=== PATIENT | male | born 1955 | race Caucasian/White ===

== ENCOUNTER 2021-09-23 11:34 | Emergency (ER) | payer OTHER ==
--- OUTSIDE RECORDS SUMMARY | 2021-09-23 11:36 | XMS REPORT | Continuity of Care Document ---
:1955 Author Organization [facility] t Address Formerly [facility] [place] [address] Care Team Providers Name Role Phone Unavailable Unavailable Unavailable Problems This patient has no known problems. Allergies, Adverse Reactions, Alerts This patient has no known allergies or adverse reactions. Medications This patient has no known medications. Procedures This patient has no known procedures. Encounters Start End Encounter Admission Attending Care Care Encounter Source Date/Time Date/Time Type Type Clinicians Facility Department ID 2020-08-28 2020-08-28 Outpatient [id number] MH 05:43:00 05:43:00 Delio kennedy [facility] Results This patient has no known results.
[2021-09-23] MEDS ORDERED: ONDANSETRON 4 MG/2 ML VIAL ONE (11:58)
[2021-09-23] MEDS ORDERED: TICAGRELOR 90 MG TABLET PO ONE (11:58)
[2021-09-23] MEDS ORDERED: MORPHINE 4 MG/ML SYR ONE (11:58)
[2021-09-23] MEDS ORDERED: ASPIRIN 81 MG CHEWABLE TABLET ONE (11:58)
[2021-09-23] MEDS ORDERED: HEPARIN/D5W 25,000 UNIT/500 ML BAG IV ONE (11:59)
[2021-09-23 12:11] LABS: Protime INR 1.01
[2021-09-23 12:21] LABS: Absolute Lymphocytes (CBC) 1.4 K/uL (0.7-4.9); Basophils % 0.1 % (0-1.3); Hematocrit 49.1 % (39.6-49.0); Lymphocytes % 6.8 % (15.3-44.8); MPV 9.2 fL (7.6-11.3); RBC Red Blood Cell Count 5.79 M/uL (4.33-5.43)
--- NOTE | 2021-09-23 12:34 | EDPHYS ---
Physician Documentation [facility] Name: Luis Meza Age: 66 yrs Sex: Male : 1955 Arrival Date: 09/23/2021 Time: 11:36 Bed 7 Private MD: ED Physician Paramjit Foster HPI: 09/23 11:56 This 66 yrs old Male presents to ER via Ambulatory with complaints of Chest rn Pain, High Blood Pressure. 11:56 The patient or guardian reports chest pain that is located primarily in the substernal rn area. Onset: 2 hour(s) ago. The pain radiates to both shoulders. Associated signs and symptoms: Pertinent positives: diaphoresis, Pertinent negatives: abdominal pain, cough, shortness of breath, syncope, vomiting. The chest pain is described as a heaviness, a pressure. Duration: The patient or guardian reports a single episode, that is still ongoing. Modifying factors: The symptoms are alleviated by nothing. the symptoms are aggravated by nothing. Severity of pain: At its worst the pain was moderate in the emergency department the pain is unchanged. The patient has experienced similar episodes in the past. The patient has not recently seen a physician. Patient reports intermittent chest pain for the last 2 days, took aspirin last night. Woke up this morning and was beginning to experience substernal chest pain, radiates to both shoulders, associated with diaphoresis and nausea. Pain is not getting better or worse and is constant pressure. No known history of LA. Patient does not have a primary care doctor or get regular checkups. Non-smoker. Strong family history of LA at a young age younger than he is currently. No trauma. Does not feel ill.. Historical: - Allergies: 11:52 No Known Allergies; ss - Home Meds: 11:52 None [Active]; ss - PMHx: 11:52 None; ss - PSHx: 11:52 "prostate surgery"; ss - Immunization history:: Client reports receiving the 2nd dose of the Covid vaccine. - Social history:: Smoking status: Patient denies any tobacco usage or history of. - Family history:: not pertinent. - Hospitalizations: : No recent hospitalization is reported. ROS: 11:56 Constitutional: Negative for fever, chills, and weight loss, Eyes: Negative for injury, rn pain, redness, and discharge, Neck: Negative for injury, pain, and swelling, Cardiovascular: Negative for palpitations, and edema, Respiratory: Negative for shortness of breath, cough, wheezing, and pleuritic chest pain, Abdomen/GI: Negative for abdominal pain, vomiting, diarrhea, and constipation, Back: Negative for injury and pain, MS/Extremity: Negative for injury and deformity, Skin: Negative for injury, rash, and discoloration, Neuro: Negative for headache, weakness, numbness, tingling, and seizure. 11:56 All other systems are negative. rn Exam: 11:56 Constitutional: This is a well developed, well nourished patient who is awake, alert, rn appears anxious Head/Face: Normocephalic, atraumatic. Eyes: Periorbital areas with no swelling, redness, or edema. Cardiovascular: Regular rate and rhythm. No pulse deficits. Respiratory: Speaking full sentences, unlabored. No increased work of breathing, no retractions or nasal flaring. Abdomen/GI: Soft, non-tender Skin: Warm, dry MS/ Extremity: Pulses equal, no cyanosis. Neuro: Awake and alert, GCS 15, oriented to person, place, time, and situation. Cranial nerves II-XII grossly intact. Motor strength 5/5 in all extremities. Sensory grossly intact. Vital Signs: 11:50 BP 197 / 82; Pulse 62; Resp 18; Pulse Ox 98% on R/A; Weight 91.63 kg; Height 6 ft. 0 ss in. (182.88 cm); Pain 8/10; 11:58 Weight 86.1 kg (M); ll3 12:10 BP 164 / 89; Pulse 67; Resp 16 S; Temp 98.0(TE); Pulse Ox 98% on R/A; Pain 4/10; aa5 11:58 Body Mass Index 25.74 (86.10 kg, 182.88 cm) ll3 MDM: 11:50 Patient medically screened. pm1 12:10 ED course: Still no word from cardiology. rn 12:23 ED course: Unable to get a hold of cardiology here, transfer initiated to [facility] for rn STEMI and to minimize delay of treatment. Pt improved. Pain down to 2/10.. 12:29 ED course: Chest x-ray without acute findings. No widened mediastinum. Actually looks rn equal and without acute changes compared to chest x-ray in 2010.. 12:31 Differential diagnosis: acute myocardial infarction, coronary artery disease rn costochondritis, pleurisy, pneumothorax, stable angina, unstable angina. HEART Score: History: Highly Suspicious (2), ECG: Significant ST-deviation (2), Age: > or = 65 years (2), Risk Factors: 1 or 2 risk factors (1), Troponin: Total Score = 7. The patient was given aspirin in the Emergency Department. Data reviewed: vital signs, nurses notes, lab test result(s), EKG, radiologic studies, plain films, and as a result, I will admit patient. Counseling: I had a detailed discussion with the patient and/or guardian regarding: the historical points, exam findings, and any diagnostic results supporting the discharge/admit diagnosis, lab results, radiology results, the need to transfer to another facility, for higher level of care, [facility] does not immediately have the required specialist. Response to treatment: the patient's symptoms have markedly improved after treatment, and as a result, I will admit patient. ED course: Accepted for transfer to [facility] for cardiology/cath. Dr. Pfeiffer, called back, states transfer, no cardiac cath tech on weekends. . 09/23 11:51 Order name: Basic Metabolic Panel pm1 09/23 11:51 Order name: CBC with Diff pm1 09/23 11:51 Order name: LFT's; Complete Time: 13:15 pm1 09/23 11:51 Order name: Magnesium; Complete Time: 13:15 pm1 09/23 11:51 Order name: NT PRO-BNP; Complete Time: 13:15 pm1 09/23 11:51 Order name: PT-INR; Complete Time: 12:24 pm1 09/23 11:51 Order name: Troponin (emerg Dept Use Only); Complete Time: 13:15 pm1 09/23 11:51 Order name: XRAY Chest (1 view); Complete Time: 13:15 pm1 09/23 11:51 Order name: Basic Metabolic Panel; Complete Time: 13:15 EDMS 09/23 11:51 Order name: CBC with Automated Diff EDMS 09/23 12:14 Order name: COVID-19 SARS RT PCR (Document "Date of Onset" if Symptomatic) aa5 09/23 11:51 Order name: EKG; Complete Time: 11:52 pm1 09/23 11:51 Order name: Cardiac monitoring; Complete Time: 11: pm1 09/23 11:51 Order name: EKG - Nurse/Tech; Complete Time: 11:52 pm1 09/23 11:51 Order name: IV Saline Lock; Complete Time: 11:52 pm1 09/23 11:51 Order name: Labs collected and sent; Complete Time: 11: pm1 09/23 11:51 Order name: O2 Per Protocol; Complete Time: 11: pm1 09/23 11:51 Order name: O2 Sat Monitoring; Complete Time: 11: pm1 Administered Medications: 12:05 Drug: Aspirin Chewable Tablet 324 mg Route: PO; aa5 12:05 Drug: Brilinta - Ticagrelor 180 mg Route: PO; aa5 12:05 Drug: morphine 4 mg Route: IVP; Site: right antecubital; aa5 12:10 Follow up: Response: No adverse reaction; Pain is decreased aa5 12:05 Drug: Zofran (Ondansetron) 4 mg Route: IVP; Site: right antecubital; aa5 12:10 Follow up: Response: No adverse reaction aa5 12:07 Drug: Heparin (LA-Bolus with thrombolytic) - HEParin 60 units/kg {Co-Signature: jh5 aa5 (Radha Oconnor RN).} Route: IVP; Site: left forearm; 12:08 Drug: Heparin (LA Drip) 12 units/kg/hr - (HEParin 36288 units, D5W 500 ml) aa5 {Co-Signature: jh5 (Radha Oconnor RN).} Route: IV; Rate: calculated rate; Site: left forearm; Disposition: 12:32 Critical Care:. rn Disposition Summary: 09/23/21 12:33 Transfer Ordered Transfer Location: [facility] rn Reason: Higher level of care rn Condition: Stable rn Problem: new rn Symptoms: have improved rn Accepting Physician: (09/23/21 13:25) ll3 Diagnosis - ST elevation (STEMI) myocardial infarction of inferior wall rn Forms: - Medication Reconciliation Form rn - SBAR form rn intake time excluding procedures: 12:32 Critical care time: Bedside Care: 30 minutes, Consultation: 5 minutes. Total time: 35 rn minutes Signatures: Dispatcher [employer] Paramjit Narayanan MD MD rn Calderon, Audri, RN RN aa5 Libby Viveros RN RN ss Marinas, Patrick, ANALYTICAL CLERK ANALYTICAL CLERK pm1 Yuliet Huitron RN RN ll3 Radha Oconnor RN jh5 Corrections: (The following items were deleted from the chart) 13:25 12:33 Dr. chatterjee ll3
--- NOTE | 2021-09-23 12:34 | ER ---
Nurse's Notes [facility] Name: Luis Meza Age: 66 yrs Sex: Male : 1955 Arrival Date: 09/23/2021 Time: 11:36 Bed 7 Private MD: Diagnosis: ST elevation (STEMI) myocardial infarction of inferior wall Presentation: 09/23 11:50 Chief complaint: Patient states: Chest discomfort that began Friday at 3 am, went away ss and started back up again at 2200 yesterday evening. Coronavirus screen: Client denies travel out of the [place] in the last 14 days. Ebola Screen: Patient denies exposure to infectious person. Patient denies travel to an Ebola-affected area in the 21 days before illness onset. Initial Sepsis Screen: Does the patient meet any 2 criteria? No. Patient's initial sepsis screen is negative. Does the patient have a suspected source of infection? No. Patient's initial sepsis screen is negative. Risk Assessment: Do you want to hurt yourself or someone else? Patient reports no desire to harm self or others. Onset of symptoms was September 22, 2021. 11:50 Method Of Arrival: Ambulatory ss 11:50 Acuity: JORDEN 1 aa5 Historical: - Allergies: 11:52 No Known Allergies; ss - Home Meds: 11:52 None [Active]; ss - PMHx: 11:52 None; ss - PSHx: 11:52 "prostate surgery"; ss - Immunization history:: Client reports receiving the 2nd dose of the Covid vaccine. - Social history:: Smoking status: Patient denies any tobacco usage or history of. - Family history:: not pertinent. - Hospitalizations: : No recent hospitalization is reported. Screenin:53 Abuse screen: Denies threats or abuse. Denies injuries from another. Nutritional ss screening: No deficits noted. Tuberculosis screening: Never had TB. Fall Risk None identified. Assessment: 11:48 General: Appears uncomfortable, Behavior is calm, cooperative. Pain: Complains of pain aa5 in chest Pain radiates to rodney shoulders Pain currently is 8 out of 10 on a pain scale. Quality of pain is described as pressure, squeezing, Pain began 2-3 days ago. Is intermittent. Neuro: Level of Consciousness is awake, alert, obeys commands, Oriented to person, place, time, situation. Cardiovascular: Reports chest pain, diaphoresis, Heart tones S1 S2 present Rhythm is sinus rhythm. Respiratory: Airway is patent Respiratory effort is even, unlabored, Respiratory pattern is regular, symmetrical, Breath sounds are clear bilaterally. GI: Abdomen is round non-distended, Patient currently denies nausea, vomiting. : No signs and/or symptoms were reported regarding the genitourinary system. EENT: No signs and/or symptoms were reported regarding the EENT system. Derm: Skin is pink, warm \\T\\ dry. Musculoskeletal: Range of motion: intact in all extremities. 12:13 Reassessment: Patient is alert, oriented x 3, equal unlabored respirations, skin aa5 warm/dry/pink. Patient states feeling better. Pain: Pain currently is 4 out of 10 on a pain scale. 12:43 Reassessment: Patient is alert, oriented x 3, equal unlabored respirations, skin aa5 warm/dry/pink. Dr. Foster rounding on patient. . Vital Signs: 11:50 BP 197 / 82; Pulse 62; Resp 18; Pulse Ox 98% on R/A; Weight 91.63 kg; Height 6 ft. 0 ss in. (182.88 cm); Pain 8/10; 11:58 Weight 86.1 kg (M); ll3 12:10 BP 164 / 89; Pulse 67; Resp 16 S; Temp 98.0(TE); Pulse Ox 98% on R/A; Pain 4/10; aa5 11:58 Body Mass Index 25.74 (86.10 kg, 182.88 cm) ll3 ED Course: 11:36 Patient arrived in ED. ds1 11:44 Yuliet Huitron, AUBREE is Primary Nurse. ll3 11:47 Christian Boswell NP is PHCP. pm1 11:48 Paramjit Foster MD is Attending Physician. pm1 11:50 Lucia Liang, AUBREE is Primary Nurse. aa5 11:52 Triage completed. ss 11:52 Arm band placed on right wrist. ss 11:53 Patient has correct armband on for positive identification. Placed in gown. Bed in low ss position. Call light in reach. Side rails up X 1. shuttle route vehicle operator on. Pulse ox on. NIBP on. 11:53 Patient maintains SpO2 saturation greater than 95% on room air. 11:53 EKG done, by ED staff, reviewed by Paramjit Foster MD. 3 11:55 Initial lab(s) drawn, by nd, sent to lab. Inserted saline lock: 20 gauge in right jl7 antecubital area, using aseptic technique. Blood collected. 11:55 EKG done, by ED staff, reviewed by Paramjit Foster MD. Inserted saline lock: 18 gauge in jl7 left forearm, using aseptic technique. inserted by GUY Avilez. 12:05 Report given to AUBREE Garcia. aa5 12:36 XRAY Chest (1 view) In Process Unspecified. EDMS 12:55 Notified ED physician of a critical lab result(s). Troponin 2.31. aa5 Administered Medications: 12:05 Drug: Aspirin Chewable Tablet 324 mg Route: PO; aa5 12:05 Drug: Brilinta - Ticagrelor 180 mg Route: PO; aa5 12:05 Drug: morphine 4 mg Route: IVP; Site: right antecubital; aa5 12:10 Follow up: Response: No adverse reaction; Pain is decreased aa5 12:05 Drug: Zofran (Ondansetron) 4 mg Route: IVP; Site: right antecubital; aa5 12:10 Follow up: Response: No adverse reaction aa5 12:07 Drug: Heparin (VT-Bolus with thrombolytic) - HEParin 60 units/kg {Co-Signature: jh5 5 (Radha Oconnor RN).} Route: IVP; Site: left forearm; 12:08 Drug: Heparin (VT Drip) 12 units/kg/hr - (HEParin 73322 units, D5W 500 ml) 5 {Co-Signature: jh5 (Radha Oconnor RN).} Route: IV; Rate: calculated rate; Site: left forearm; Outcome: 12:33 ER care complete, transfer ordered by . rn 13:25 Patient left the ED. ll3 Signatures: Dispatcher [employer] EDPR Alvarez, Lety ds1 Paramjit Foster MD MD rn Calderon, Audri, RN RN 5 Libby Viveros RN RN ss Christian Boswell, BUDGET RECORD CLERK BUDGET RECORD CLERK pm1 Mallika Jansen RN RN 7 Fatmata Torres 3 Yuliet Huitron RN RN ll3 Radha Oconnor RN jh5 Corrections: (The following items were deleted from the chart) 12:13 11:55 Inserted saline lock: 20 gauge in left forearm, using aseptic technique. inserted aa5 by GUY Avilez Tech jl7 12:35 11:50 Acuity: JORDEN 2 ss aa5
[2021-09-23 12:46] LABS: Albumin 3.5 g/dL (3.4-5.0); Bilirubin Direct 0.2 mg/dL (0-0.2); Bilirubin Total 0.9 mg/dL (0.2-1.0); Magnesium 2.2 mg/dL (1.8-2.4); Potassium 4.3 mmol/L (3.5-5.1); Protein, Total 7.1 g/dL (6.4-8.2)
[2021-09-23 12:48] LABS: Troponin (Emerg Dept Use Only) 2.31 ng/mL (0.0-0.045)
--- NOTE | 2021-09-23 12:55 | RAD REPORT ---
EXAM DESCRIPTION: RAD - Chest Single View - 09/23/2021 12:36 pm CLINICAL HISTORY: CHEST PAIN COMPARISON: April 2011 TECHNIQUE: AP portable chest image was obtained 09/23/2021 12:36 pm . FINDINGS: Lungs are clear. Heart and vasculature are normal. No measurable pleural effusion and no p neumothorax. No acute bony abnormality seen. No acute aortic findings suspected. IMPRESSION: No acute cardiopulmonary process. No significant change from comparison study.
[2021-09-23 13:31] VITALS: O2SAT 98
[2021-09-23 13:32] VITALS: BP 164/89; TEMP 98
[2021-09-23 14:31] LABS: Blood Morphology Comment NOT SEEN (NOT SEEN); Platelet Estimate ADEQ
--- NOTE | 2021-09-26 08:12 | EKG ---
Test Date: 2021-09-23 Test Time: 11:47:15 Night Cleaner: PARDEEP MEASUREMENT RESULTS: Intervals: Rate: 59 [place]: 144 QRSD: 74 QT: 426 QTc: 421 [place]: P: 61 [place]: 144 QRS: 35 T: 73 INTERPRETIVE STATEMENTS: Sinus bradycardia Possible Left atrial enlargement Low voltage QRS ST elevation, consider inferior injury or acute infarct ACUTE AR / STEMI Consider right ventricular involvement in acute inferior infarct Abnormal ECG Compared to ECG 06/18/2017 10:02:43 Low QRS voltage now present ST (T wave) deviation now present Myocardial infarct finding now present Myocardial infarct finding now present Electronically Signed On 09-26-21 08:04:15 AUTOMOTIVE PAINTER by Saulo Pfeiffer
== END 2021-09-23 13:25 | disposition short-term general hospital (02) ==
LOC: ER 11:34
DX: I21.19 ST elevation (STEMI) myocardial infarction involving other coronary artery of inferior wall (principal)
CPT/HCPCS: 93005; 85025; 80048; 36415; 83735; 85610; 80076; 84484; 83880; 71045; 99291; U0003; J1644 ×2; J2405

== ENCOUNTER 2021-10-31 10:57 | Emergency (ER) | payer OTHER ==
--- OUTSIDE RECORDS SUMMARY | 2021-10-31 11:04 | XMS REPORT | Continuity of Care Document ---
:1955 Author Organization [facility] t Address [address] [place] [address] Care Team Providers Name Role Phone LILIANE ANDERSEN Attending Clinician Unavailable Julieth NEVAREZ Attending Clinician Unavailable SHALOM Attending Clinician Unavailable MINOO ORDONEZ Attending Clinician Unavailable Julieth NEVAREZ Admitting Clinician Unavailable SHALOM Admitting Clinician Unavailable Payers Payer Name Policy Type Policy Number Effective Date Expiration Date Cari esparza MEDICARE A B [id number] 2019 00:00:00 [facility] [facility] [id number] 2021 SUPPLEMENTAL 00:00:00 Problems This patient has no known problems. Allergies, Adverse Reactions, Alerts Allergy Allergy Status Severity Reaction(s) Onset Inactive Treating Comm ents Source Name Type Date Date Clinician CHOCOLAT Allergy Active 2020-11 [facility] NO KNOWN Allergy Active [facility] Medications This patient has no known medications. Vital Signs Vital Name Observation Time Observation Value Comments Source HEIGHT 2021-10-18 09:44:00 182.9 cm WEIGHT 2021-10-18 09:44:00 77.111 kg WEIGHT 2021-10-08 05:00:00 77.656 kg WEIGHT 2021-10-07 03:33:00 79.425 kg WEIGHT 2021-10-06 04:00:00 80.831 kg WEIGHT 2021-10-04 05:45:00 85.049 kg WEIGHT 2021-10-03 08:30:00 88.361 kg WEIGHT 2021-09-30 00:20:00 82 kg WEIGHT 2021-09-29 05:45:00 80.468 kg WEIGHT 2021-09-28 08:00:00 81.33 kg WEIGHT 2021-09-25 06:20:00 82.736 kg WEIGHT 2021-09-24 06:20:00 83.28 kg WEIGHT 2021-09-23 14:13:00 91 kg HEIGHT 2021-09-23 13:40:00 182.9 cm WEIGHT 2021-09-23 13:40:00 83 kg WEIGHT 2021-10-08 05:00:00 77.656 kg WEIGHT 2021-10-07 03:33:00 79.425 kg WEIGHT 2021-10-06 04:00:00 80.831 kg WEIGHT 2021-10-04 05:45:00 85.049 kg WEIGHT 2021-10-03 08:30:00 88.361 kg WEIGHT 2021-09-30 00:20:00 82 kg WEIGHT 2021-09-29 05:45:00 80.468 kg WEIGHT 2021-09-28 08:00:00 81.33 kg WEIGHT 2021-09-25 06:20:00 82.736 kg WEIGHT 2021-09-24 06:20:00 83.28 kg WEIGHT 2021-09-23 14:13:00 91 kg HEIGHT 2021-09-23 13:40:00 182.9 cm WEIGHT 2021-09-23 13:40:00 83 kg Procedures This patient has no known procedures. Encounters Start End Encounter Admission Attending Care Care Encounter Source Date/Time Date/Time Type Type Clinicians Facility Department ID 2021-10-18 2021-10-18 Outpatient JHON KUMARGANESH, [facility] [id number] [facility] 09:42:04 09:42:04 CHARITY 2021-10-09 2021-10-10 Inpatient ER GERI [facility] Cardiology [id number] [facility] 00:06:00 18:20:00 NIDHI 2021-10-09 2021-10-09 Outpatient [facility] [id number] [address] [place] [address] 00:00:00 23:59:00 Karin 2021-09-23 2021-10-08 Inpatient ER GERI, [facility] Surgery [id number] [facility] 13:38:00 11:15:00 JAMUNA 2021-09-23 2021-09-23 Outpatient [facility] [id number] [facility] 13:38:00 23:59:00 [facility] 2021-09-23 2021-09-23 Outpatient [facility] [id number] [facility] 00:00:00 23:59:00 [facility] 2020-08-28 2020-08-28 Outpatient HOGGATT, [facility] [id number] 05:43:00 14:15:00 SIAELLA kennedy [facility] Results Test Description Test Time Test Comments Results Result Comments Source BLOOD CULTURE 2021-10-14 09:00:52 Test Item Value Reference Range Interpretation Comme nts CULTURE (BEAKER) (test code = 1095) No growth in 5 days BLOOD [id number] 09:00:51 Test Item Value Reference Range Interpretation Comments CULTURE (BEAKER) (test No growth in 5 days code = 1095) POCT-GLUCOSE [id number] 12:35:57 Test Item Value Reference Range Interpretation Comments POC-GLUCOSE METER 127 mg/dL 70-110 H : TESTED A T [facility] 6720 (BEAKER) (test code = [facility], 1538) [id number]: Instrument Repairer Steam Plant/Techni hien ID = [id number] for Ch eung, Sheryl POCT-GLUCOSE [id number] 07:20:11 Test Item Value Reference Range Interpretation Comments POC-GLUCOSE METER 100 mg/dL 70-110 : TESTED A T [facility] 6720 (BEAKER) (test code = [facility], 1538) 74681: Instrument Repairer Steam Plant/Techni hien ID = [id number] for Ch eung, Sheryl [id number] 04:36:49 Test Item Value Reference Range Interpretation Comments MAGNESIUM (BEAKER) (test code = 2.3 mg/dL 1.6-2.6 627) Instrument Repairer Steam Plant ID - YOMI MBASIC METABOLIC [id number] 04:36:48 Test Item Value Reference Range Interpretation Comments SODIUM (BEAKER) 135 meq/L 136-145 L (test code = 381) POTASSIUM (BEAKER) 4.6 meq/L 3.5-5.1 (test code = 379) CHLORIDE (BEAKER) 106 meq/L 98-107 (test code = 382) CO2 (BEAKER) (test 23 meq/L 22-29 code = 355) BLOOD UREA NITROGEN 17 mg/dL 7-21 (BEAKER) (test code = 354) CREATININE (BEAKER) 0.89 mg/dL 0.57-1.25 (test code = 358) GLUCOSE RANDOM 114 mg/dL 70-105 H (BEAKER) (test code = 652) CALCIUM (BEAKER) 8.6 mg/dL 8.4-10.2 (test code = 697) EGFR (BEAKER) (test 85 mL/min/1.73 ESTIMA SHIVAM GFR IS code = 1092) sq m NOT ACCURATE CREATININE CLEARANCE IN PREDICTING GLOMERULAR FILTRATION RATE . ESTIMATED GFR I S NOT APPLICABLE FOR DIALYSIS PATIEN TS. Instrument Repairer Steam Plant ID - YOMI MCBC (HEMOGRAM ONLY)2021-10-10 04:18:01 Test Item Value Reference Range Interpretation Comments WHITE BLOOD CELL COUNT (BEAKER) 15.1 K/ L 3.5-10.5 H (test code = 775) RED BLOOD CELL COUNT (BEAKER) 3.55 M/ L 4.63-6.08 L (test code = 761) HEMOGLOBIN (BEAKER) (test code = 10.0 GM/DL 13.7-17.5 L 410) HEMATOCRIT (BEAKER) (test code = 30.8 % 40.1-51.0 L 411) MEAN CORPUSCULAR VOLUME (BEAKER) 86.8 fL 79.0-92.2 (test code = 753) MEAN CORPUSCULAR HEMOGLOBIN 28.2 pg 25.7-32.2 (BEAKER) (test code = 751) MEAN CORPUSCULAR HEMOGLOBIN CONC 32.5 GM/DL 32.3-36.5 (BEAKER) (test code = 752) RED CELL DISTRIBUTION WIDTH 13.7 % 11.6-14.4 (BEAKER) (test code = 412) PLATELET COUNT (BEAKER) (test 473 K/CU MM 150-450 H code = 756) MEAN PLATELET VOLUME (BEAKER) 9.6 fL 9.4-12.4 (test code = 754) NUCLEATED RED BLOOD CELLS 0 /100 WBC 0-0 (BEAKER) (test code = 413) POCT-GLUCOSE [id number] 21:33:43 Test Item Value Reference Range Interpretation Comments POC-GLUCOSE METER 120 mg/dL 70-110 H : TESTED A T [facility] 6720 (MIKAEL) (test code = [facility], 1538) [id number]: Instrument Repairer Steam Plant/Techni hien ID = [id number] for Vo Kendra cox POCT-GLUCOSE [id number] 17:36:36 Test Item Value Reference Range Interpretation Comments POC-GLUCOSE METER 141 mg/dL 70-110 H : [facility] T [facility] 6720 [facility] (test code = [facility], 1538) 65515: Instrument Repairer Steam Plant/Techni hien ID = [id number] for Ch mariel, Sheryl POCT-GLUCOSE [id number] 12:16:56 Test Item Value Reference Range Interpretation Comments POC-GLUCOSE METER 180 mg/dL 70-110 H : [facility] A T [facility] 6720 [facility] (test code = [facility], 1538) 34208: Instrument Repairer Steam Plant/Techni hien ID = [id number] for Ch eung, Sheryl RAD, CHEST, 1 VIEW, NON [id number] 11:13:00Reason for exam:->recent acb, CT removalShould this be performed at the bedside?->Yes [facility] 1955 Sex: MFINAL REPORT RAD, CHEST, 1 VIEW, NON DEPT INDICATION: recent acb, CT removal COMPARISON: October 07, 2021 FINDINGS: Portable frontal view of the chest. IMPRESSION: Support Lines: None Lungs and pleura: Improving left apical pneumothorax. No new consolidation.Heart and mediastinum: Stable contours. Stable surgical changes.Additional findings: None. Signed: JR Moreno Robert MDReport Verified Date/Time: 10/09/2021 11:13:44 Reading Location: [facility] Radiology Reading Room BASIC METABOLIC [id number] 09:40:37 Test Item Value Reference Range Interpretation Comments SODIUM (BEAKER) 137 meq/L 136-145 (test code = 381) POTASSIUM (BEAKER) 4.6 meq/L 3.5-5.1 (test code = 379) CHLORIDE (BEAKER) 106 meq/L 98-107 (test code = 382) CO2 (BEAKER) (test 22 meq/L 22-29 code = 355) BLOOD UREA NITROGEN 20 mg/dL 7-21 (BEAKER) (test code = 354) CREATININE (BEAKER) 0.95 mg/dL 0.57-1.25 (test code = 358) GLUCOSE RANDOM 108 mg/dL 70-105 H (BEAKER) (test code = 652) CALCIUM (BEAKER) 8.5 mg/dL 8.4-10.2 (test code = 697) EGFR (BEAKER) (test 79 mL/min/1.73 ESTIMA SHIVAM GFR IS code = 1092) sq m NOT ACCURATE CREATININE CLEARANCE IN PREDICTING GLOMERULAR FILTRATION RATE . ESTIMATED GFR I S NOT APPLICABLE FOR DIALYSIS PATIEN TS. Instrument Repairer Steam Plant ID - PATRICIA FOperator ID - PATRICIA FOperator ID - PATRICIA F [id number] 09:00:03 Test Item Value Reference Range Interpretation Comments MAGNESIUM (BEAKER) (test code = 2.2 mg/dL 1.6-2.6 627) Instrument Repairer Steam Plant ID - PATRICIA FURINALYSIS WITH MICROSCOPIC IF [id number] 08:44:57 Test Item Value Reference Range Interpretation Comments COLOR (BEAKER) (test code = 470) Yellow CLARITY (BEAKER) (test code = 469) Clear SPECIFIC GRAVITY UA (BEAKER) (test 1.020 1.001-1.035 code = 468) PH UA (BEAKER) (test code = 467) 6.5 5.0-8.0 PROTEIN UA (BEAKER) (test code = Negative Negative 464) GLUCOSE UA (BEAKER) (test code = Negative Negative 365) KETONES UA (BEAKER) (test code = Negative Negative 371) BILIRUBIN UA (BEAKER) (test code = Negative Negative 462) BLOOD UA (BEAKER) (test code = 461) Negative Negative NITRITE UA (BEAKER) (test code = Negative Negative 465) LEUKOCYTE ESTERASE UA (BEAKER) Negative Negative (test code = 466) UROBILINOGEN UA (BEAKER) (test code 8.0 mg/dL 0.2-1.0 H = 463) SOURCE(BEAKER) (test code = 2795) Instrument Repairer Steam Plant ID - [auto]CBC (HEMOGRAM ONLY)2021-10-09 08:38:37 Test Item Value Reference Range Interpretation Comments WHITE BLOOD CELL COUNT (BEAKER) 13.9 K/ L 3.5-10.5 H (test code = 775) RED BLOOD CELL COUNT (BEAKER) 3.60 M/ L 4.63-6.08 L (test code = 761) HEMOGLOBIN (BEAKER) (test code = 10.2 GM/DL 13.7-17.5 L 410) HEMATOCRIT (BEAKER) (test code = 31.1 % 40.1-51.0 L 411) MEAN CORPUSCULAR VOLUME (BEAKER) 86.4 fL 79.0-92.2 (test code = 753) MEAN CORPUSCULAR HEMOGLOBIN 28.3 pg 25.7-32.2 (BEAKER) (test code = 751) MEAN CORPUSCULAR HEMOGLOBIN CONC 32.8 GM/DL 32.3-36.5 (BEAKER) (test code = 752) RED CELL DISTRIBUTION WIDTH 13.8 % 11.6-14.4 (BEAKER) (test code = 412) PLATELET COUNT (BEAKER) (test 467 K/CU MM 150-450 H code = 756) MEAN PLATELET VOLUME (BEAKER) 9.6 fL 9.4-12.4 (test code = 754) NUCLEATED RED BLOOD CELLS 0 /100 WBC 0-0 (BEAKER) (test code = 413) POCT-GLUCOSE [id number] 08:06:53 Test Item Value Reference Range Interpretation Comments POC-GLUCOSE METER 104 mg/dL 70-110 : TESTED A T [facility] 6720 (BEAKER) (test code = [place], 1538) 28127: Instrument Repairer Steam Plant/Techni hien ID = [id number] for Sheryl Acosta POCT-GLUCOSE [id number] 07:49:20 Test Item Value Reference Range Interpretation Comments POC-GLUCOSE METER 111 mg/dL 70-110 H : TESTED A T [facility] 6720 (BEAKER) (test code = [facility], 1538) 97924: Instrument Repairer Steam Plant/Techni hien ID = [id number] for LYNN VEGA BASIC METABOLIC [id number] 06:34:25 Test Item Value Reference Range Interpretation Comments SODIUM (BEAKER) 134 meq/L 136-145 L (test code = 381) POTASSIUM (BEAKER) 4.3 meq/L 3.5-5.1 (test code = 379) CHLORIDE (BEAKER) 102 meq/L 98-107 (test code = 382) CO2 (BEAKER) (test 22 meq/L 22-29 code = 355) BLOOD UREA NITROGEN 21 mg/dL 7-21 (BEAKER) (test code = 354) CREATININE (BEAKER) 0.90 mg/dL 0.57-1.25 (test code = 358) GLUCOSE RANDOM 119 mg/dL 70-105 H (BEAKER) (test code = 652) CALCIUM (BEAKER) 8.4 mg/dL 8.4-10.2 (test code = 697) EGFR (BEAKER) (test 84 mL/min/1.73 ESTIMA SHIVAM GFR IS code = 1092) sq m NOT ACCURATE CREATININE CLEARANCE IN PREDICTING GLOMERULAR FILTRATION RATE . ESTIMATED GFR I S NOT APPLICABLE FOR DIALYSIS PATIEN TS. Instrument Repairer Steam Plant ID - YOMI MCBC (HEMOGRAM ONLY)2021-10-08 06:10:47 Test Item Value Reference Range Interpretation Comments WHITE BLOOD CELL COUNT (BEAKER) 12.9 K/ L 3.5-10.5 H (test code = 775) RED BLOOD CELL COUNT (BEAKER) 3.48 M/ L 4.63-6.08 L (test code = 761) HEMOGLOBIN (BEAKER) (test code = 9.9 GM/DL 13.7-17.5 L 410) HEMATOCRIT (BEAKER) (test code = 31.1 % 40.1-51.0 L 411) MEAN CORPUSCULAR VOLUME (BEAKER) 89.4 fL 79.0-92.2 (test code = 753) MEAN CORPUSCULAR HEMOGLOBIN 28.4 pg 25.7-32.2 (BEAKER) (test code = 751) MEAN CORPUSCULAR HEMOGLOBIN CONC 31.8 GM/DL 32.3-36.5 L (BEAKER) (test code = 752) RED CELL DISTRIBUTION WIDTH 13.9 % 11.6-14.4 (BEAKER) (test code = 412) PLATELET COUNT (BEAKER) (test 416 K/CU MM 150-450 code = 756) MEAN PLATELET VOLUME (BEAKER) 9.9 fL 9.4-12.4 (test code = 754) NUCLEATED RED BLOOD CELLS 0 /100 WBC 0-0 (BEAKER) (test code = 413) POCT-GLUCOSE [id number] 21:32:42 Test Item Value Reference Range Interpretation Comments POC-GLUCOSE METER 175 mg/dL 70-110 H : TESTED A T [facility] 6720 ([facility]) (test code = [facility], [facility]) 40684: Instrument Repairer Steam Plant/Techni hien ID = [id number] for ESPERANZA LAO POCT-GLUCOSE [id number] 17:33:59 Test Item Value Reference Range Interpretation Comments POC-GLUCOSE METER 162 mg/dL 70-110 H : [facility] T [facility] 67[facility] (test code = [facility], [facility]) 57695: Instrument Repairer Steam Plant/Techni hien ID = [id number] for KIZHAKEKATTIL, PERCY POCT-GLUCOSE [id number] 12:14:01 Test Item Value Reference Range Interpretation Comments POC-GLUCOSE METER 189 mg/dL 70-110 H : [facility] T [facility] 67[facility] (test code = [facility], 1538) 47019: Instrument Repairer Steam Plant/Techni hien ID = [id number] for KIZHAKEKATTIL, PERCY POCT-GLUCOSE [id number] 08:21:02 Test Item Value Reference Range Interpretation Comments POC-GLUCOSE METER 129 mg/dL 70-110 H : TESTED A T [facility] 6720 ([facility]) (test code = [facility], [facility]) 55564: Instrument Repairer Steam Plant/Techni hien ID = [id number] for PERCY CAMACHO BASIC METABOLIC [id number] 04:39:23 Test Item Value Reference Range Interpretation Comments SODIUM (BEAKER) 136 meq/L 136-145 (test code = 381) POTASSIUM (BEAKER) 4.2 meq/L 3.5-5.1 (test code = 379) CHLORIDE (BEAKER) 103 meq/L 98-107 (test code = 382) CO2 (BEAKER) (test 24 meq/L 22-29 code = 355) BLOOD UREA NITROGEN 19 mg/dL 7-21 (BEAKER) (test code = 354) CREATININE (BEAKER) 0.84 mg/dL 0.57-1.25 (test code = 358) GLUCOSE RANDOM 132 mg/dL 70-105 H (BEAKER) (test code = 652) CALCIUM (BEAKER) 8.6 mg/dL 8.4-10.2 (test code = 697) EGFR (BEAKER) (test 91 mL/min/1.73 ESTIMA SHIVAM GFR IS code = 1092) sq m NOT ACCURATE CREATININE CLEARANCE IN PREDICTING GLOMERULAR FILTRATION RATE . ESTIMATED GFR I S NOT APPLICABLE FOR DIALYSIS PATIEN TS. Instrument Repairer Steam Plant ID - DBRAD, CHEST, 1 VIEW, NON [id number] 04:38:00Reason for exam:- >chest removal[facility]ORS [facility]Name: [facility] : 1955 Sex: MFINAL REPORT CLINICAL INDICATION: Chest tube removal Comparison: 10/05/2021 There is a small left apical pneumothorax after left chest tube removal, unchanged from previous and demonstrating approximately 1.2 cm of pleural separation. The cardiomediastinal contours are stable. Curvilinear opacity in the retrocardiac left lung is similar to previous and may reflect atelectasis or scarring. The lungs are otherwise clear. There is no significant pleural fluid collection. Signed: Janie Jack MDReport Verified Date/Time: 10/07/2021 04:38:17 CBC (HEMOGRAM ONLY)2021-10-07 04:10:36 Test Item Value Reference Range Interpretation Comments WHITE BLOOD CELL COUNT (BEAKER) 11.9 K/ L 3.5-10.5 H (test code = 775) RED BLOOD CELL COUNT (BEAKER) 3.29 M/ L 4.63-6.08 L (test code = 761) HEMOGLOBIN (BEAKER) (test code = 9.2 GM/DL 13.7-17.5 L 410) HEMATOCRIT (BEAKER) (test code = 28.7 % 40.1-51.0 L 411) MEAN CORPUSCULAR VOLUME (BEAKER) 87.2 fL 79.0-92.2 (test code = 753) MEAN CORPUSCULAR HEMOGLOBIN 28.0 pg 25.7-32.2 (BEAKER) (test code = 751) MEAN CORPUSCULAR HEMOGLOBIN CONC 32.1 GM/DL 32.3-36.5 L (BEAKER) (test code = 752) RED CELL DISTRIBUTION WIDTH 13.3 % 11.6-14.4 (BEAKER) (test code = 412) PLATELET COUNT (BEAKER) (test 336 K/CU MM 150-450 code = 756) MEAN PLATELET VOLUME (BEAKER) 10.0 fL 9.4-12.4 (test code = 754) NUCLEATED RED BLOOD CELLS 0 /100 WBC 0-0 (BEAKER) (test code = 413) POCT-GLUCOSE [id number] 20:34:24 Test Item Value Reference Range Interpretation Comments POC-GLUCOSE METER 105 mg/dL 70-110 : TESTED A T [facility] 6720 (BEAKER) (test code = [place], 1538) 17025: Instrument Repairer Steam Plant/Techni hien ID = [id number] for ESPERANZA LAO POCT-GLUCOSE [id number] 18:05:41 Test Item Value Reference Range Interpretation Comments POC-GLUCOSE METER 198 mg/dL 70-110 H : TESTED A T [facility] 6720 (BEAKER) (test code = [facility], 1538) 58021: Instrument Repairer Steam Plant/Techni hien ID = [id number] for Kumar Love, Chesterairy POCT-GLUCOSE [id number] 12:29:02 Test Item Value Reference Range Interpretation Comments POC-GLUCOSE METER 173 mg/dL 70-110 H : TESTED A T [facility] 6720 (BEAKER) (test code = [facility], 1538) 61277: Instrument Repairer Steam Plant/Techni hien ID = [id number] for Kumar alvarengainez Love, Tanairy POCT-GLUCOSE [id number] 07:57:57 Test Item Value Reference Range Interpretation Comments POC-GLUCOSE METER 127 mg/dL 70-110 H : TESTED A T [facility] 6720 (BEAKER) (test code = [facility], 1538) 34707: Instrument Repairer Steam Plant/Techni hien ID = [id number] for Ma inez Love, Tanairy BASIC METABOLIC [id number] 05:54:27 Test Item Value Reference Range Interpretation Comments SODIUM (BEAKER) 136 meq/L 136-145 (test code = 381) POTASSIUM (BEAKER) 4.1 meq/L 3.5-5.1 (test code = 379) CHLORIDE (BEAKER) 100 meq/L 98-107 (test code = 382) CO2 (BEAKER) (test 25 meq/L 22-29 code = 355) BLOOD UREA NITROGEN 18 mg/dL 7-21 (BEAKER) (test code = 354) CREATININE (BEAKER) 0.84 mg/dL 0.57-1.25 (test code = 358) GLUCOSE RANDOM 147 mg/dL 70-105 H (BEAKER) (test code = 652) CALCIUM (BEAKER) 8.8 mg/dL 8.4-10.2 (test code = 697) EGFR (BEAKER) (test 91 mL/min/1.73 ESTIMA SHIVAM GFR IS code = 1092) sq m NOT ACCURATE CREATININE CLEARANCE IN PREDICTING GLOMERULAR FILTRATION RATE . ESTIMATED GFR I S NOT APPLICABLE FOR DIALYSIS PATIEN TS. Instrument Repairer Steam Plant ID - [id number] (HEMOGRAM ONLY)2021-10-06 05:38:57 Test Item Value Reference Range Interpretation Comments WHITE BLOOD CELL COUNT 12.7 K/ L 3.5-10.5 H (BEAKER) (test code = 775) RED BLOOD CELL COUNT 3.35 M/ L 4.63-6.08 L (BEAKER) (test code = 761) HEMOGLOBIN (BEAKER) 9.5 GM/DL 13.7-17.5 L (test code = 410) HEMATOCRIT (BEAKER) 29.7 % 40.1-51.0 L (test code = 411) MEAN CORPUSCULAR 88.7 fL 79.0-92.2 VOLUME (BEAKER) (test code = 753) MEAN CORPUSCULAR 28.4 pg 25.7-32.2 HEMOGLOBIN (BEAKER) (test code = 751) MEAN CORPUSCULAR 32.0 GM/DL 32.3-36.5 L HEMOGLOBIN CONC (BEAKER) (test code = 752) RED CELL DISTRIBUTION 13.5 % 11.6-14.4 WIDTH (BEAKER) (test code = 412) PLATELET COUNT 306 K/CU MM 150-[address] T (BEAKER) (test code = result s compared to 756) previous result s; clinical correl ation required. MEAN PLATELET VOLUME 10.4 fL 9.4-12.4 (BEAKER) (test code = 754) NUCLEATED RED BLOOD 0 /100 WBC 0-0 CELLS (BEAKER) (test code = 413) POCT-GLUCOSE [id number] 20:46:44 Test Item Value Reference Range Interpretation Comments POC-GLUCOSE METER 196 mg/dL 70-110 H : TESTED A T [facility] 6720 (BEAKER) (test code = [place], 1538) 754[address]: Instrument Repairer Steam Plant/Techni hien ID = [id number] for ESPERANZA LAO SARS-COV2/RT-PCR ([facility])2021-10-05 20:14:26 Test Item Value Reference Range Interpretation Comments SARS-COV2/RT-PCR (test code = Negative Negative [id number]) Negative result for this test determines that SARS-CoV-2 RNA was not present in the specimen above the Limit of Detection (LOD). However, Negative results do not preclude SARS-CoV-2 infection and should not be used as the sole basis for treatment or patient management decisions. Negative results must be combined with clinical observations, patient history, and epidemiological information. A false negative result may occur if a specimen is improperly collected, transported, or handled. A false negative result should be considered if patient's recent exposures or clinical presentation indicate that COVID-19 (SARS-CoV-2) is likely and diagnostic tests for other causes of illness are negative. Re-testing should be considered in cases of suspected false negatives.The limit of detection for this assay is 100 copies/mL.This SARS-CoV-2 test is a real-time RT_PCR test intended for the qualitative detection of nucleic acid from SARS-CoV-2 in a nasopharyngeal swab specimen collected from individuals suspected of COVID-19 by their healthcare provider.This test has not been Food and Drug Administration (FDA) cleared or approved. This is a modified version of an approved Emergency Use Authorization (EUA) and is in the process of review by the FDA. Once authorized by the FDA, the issued EUA will be effective until the declaration that circumstances exist justifying the authorization of the emergency use of in vitro diagnostic tests for detection and/or diagnosis of COVID-19 is terminated under Section 564(b)(2) of the Act or the EUA is revoked under Section 564(g) of the Act.Testing was performedusing the [employer] SARS-CoV-2 assay.Fact Sheet for Healthcare Providers:https://www.molecular.prado/joanie/RT SARS-CoV-2 HCP Fact Sheet 51- 868602.pdfFact Sheet for Healthcare Patients:https://www.molecular.prado/joanie/RT SARS-CoV-2 Patient Fact Sheet EN 51-450970B2.pdfPOCT-GLUCOSE [id number] 17:35:49 Test Item Value Reference Range Interpretation Comments POC-GLUCOSE METER 157 mg/dL 70-110 H : TESTED A T [facility] 6720 ([employer]) (test code = [employer] [facility], 1538) 85817: Instrument Repairer Steam Plant/Techni hien ID = [id number] for Sheryl Acosta POCT-GLUCOSE [id number] 12:46:51 Test Item Value Reference Range Interpretation Comments POC-GLUCOSE METER 159 mg/dL 70-110 H : TESTED A T [facility] 6720 ([employer]) (test code = [facility] [employer] [facility], 1538) [address]102: Instrument Repairer Steam Plant/Techni hien ID = [id number] for Sheryl Acosta RAD, CHEST, 1 VIEW, NON [id number] 10:48:00Reason for exam:->Evaluate cardiopulmonary status Should this be performed at the bedside?->Yes [facility] : 1955 Sex: MFINAL REPORT RAD, CHEST, 1 VIEW, NON DEPT INDICATION: Evaluate cardiopulmonary status COMPARISON: Prior day's exam FINDINGS: Portable frontal view of the chest. IMPRESSION: Support Lines: Stable. Lungs and pleura: Clear lungs. Stable left apical pneumothorax.Heart and mediastinum: Stable contours. Stable surgical changes.Additional findings: None. Signed: JR Moreno Robert MDReport Verified Date/Time: 10/05/2021 10:48:27 Reading [facility] RadiologyReading [facility] POCT-GLUCOSE [id number] 08:17:16 Test Item Value Reference Range Interpretation Comments POC-GLUCOSE METER 116 mg/dL 70-110 H : TESTED A T [facility] (BEAKER) (test code = TONY No [facility], 1538) [address]14: Instrument Repairer Steam Plant/Techni hien ID = [id number] for Sheryl Acosta BASIC METABOLIC [id number] 04:41:19 Test Item Value Reference Range Interpretation Comments SODIUM (BEAKER) 129 meq/L 136-145 L (test code = 381) POTASSIUM (BEAKER) 4.2 meq/L 3.5-5.1 (test code = 379) CHLORIDE (BEAKER) 97 meq/L 98-107 L (test code = 382) CO2 (BEAKER) (test 24 meq/L 22-29 code = 355) BLOOD UREA NITROGEN 17 mg/dL 7-21 (BEAKER) (test code = 354) CREATININE (BEAKER) 0.79 mg/dL 0.57-1.25 (test code = 358) GLUCOSE RANDOM 295 mg/dL 70-105 H (BEAKER) (test code = 652) CALCIUM (BEAKER) 8.0 mg/dL 8.4-10.2 L (test code = 697) EGFR (BEAKER) (test 98 mL/min/1.73 ESTIMA SHIVAM GFR IS code = 1092) sq m NOT ACCURATE CREATININE CLEARANCE IN PREDICTING GLOMERULAR FILTRATION RATE . ESTIMATED GFR I S NOT APPLICABLE FOR DIALYSIS PATIEN TS. Instrument Repairer Steam Plant ID - SARAH GCBC (HEMOGRAM ONLY)2021-10-05 04:18:12 Test Item Value Reference Range Interpretation Comments WHITE BLOOD CELL COUNT (BEAKER) 11.0 K/ L 3.5-10.5 H (test code = 775) RED BLOOD CELL COUNT (BEAKER) 2.92 M/ L 4.63-6.08 L (test code = 761) HEMOGLOBIN (BEAKER) (test code = 8.3 GM/DL 13.7-17.5 L 410) HEMATOCRIT (BEAKER) (test code = 26.0 % 40.1-51.0 L 411) MEAN CORPUSCULAR VOLUME (BEAKER) 89.0 fL 79.0-92.2 (test code = 753) MEAN CORPUSCULAR HEMOGLOBIN 28.4 pg 25.7-32.2 (BEAKER) (test code = 751) MEAN CORPUSCULAR HEMOGLOBIN CONC 31.9 GM/DL 32.3-36.5 L (BEAKER) (test code = 752) RED CELL DISTRIBUTION WIDTH 13.5 % 11.6-14.4 (BEAKER) (test code = 412) PLATELET COUNT (BEAKER) (test 180 K/CU MM 150-450 code = 756) MEAN PLATELET VOLUME (BEAKER) 10.8 fL 9.4-12.4 (test code = 754) NUCLEATED RED BLOOD CELLS 0 /100 WBC 0-0 (BEAKER) (test code = 413) POCT-GLUCOSE [id number] 20:58:31 Test Item Value Reference Range Interpretation Comments POC-GLUCOSE METER 157 mg/dL 70-110 H : TESTED A T [facility] 6720 (BEAKER) (test code = [facility], 1538) 755[address]: Instrument Repairer Steam Plant/Techni hien ID = [id number] for Re yes, Sairy HEMOGLOBIN AND [id number] 19:58:36 Test Item Value Reference Range Interpretation Comments HEMOGLOBIN (BEAKER) (test code = 8.0 GM/DL 13.7-17.5 L 410) HEMATOCRIT (BEAKER) (test code = 24.5 % 40.1-51.0 L 411) Instrument Repairer Steam Plant ID - [id number]-GLUCOSE [id number] 17:32:51 Test Item Value Reference Range Interpretation Comments POC-GLUCOSE METER 149 mg/dL 70-110 H : TESTED A T [facility] 6720 (BEAKER) (test code = [facility], 1538) 05491: Instrument Repairer Steam Plant/Techni hine ID = [id number] for Ch eung, Sheryl POCT-GLUCOSE [id number] 12:23:28 Test Item Value Reference Range Interpretation Comments POC-GLUCOSE METER 134 mg/dL 70-110 H : TESTED A T [facility] 6720 (BEAKER) (test code = [facility], 1538) 74603: Instrument Repairer Steam Plant/Techni hien ID = [id number] for Ch eung, Sheryl POCT-GLUCOSE [id number] 07:43:41 Test Item Value Reference Range Interpretation Comments POC-GLUCOSE METER 130 mg/dL 70-110 H : TESTED A T [facility] 6720 (BEAKER) (test code = [facility], 1538) 94762: Instrument Repairer Steam Plant/Techni hien ID = [id number] for Ch eung, Sheryl RAD, CHEST, 1 VIEW, NON [id number] 07:15:00Reason for exam:->post cv surgeryShould this be performed at the bedside?->Yes [facility] 1955 Sex: MFINAL REPORT RAD, CHEST, 1 VIEW, NON DEPT INDICATION: post cv surgery COMPARISON: Prior day's exam FINDINGS: Portable frontal view of the chest. IMPRESSION: Support Lines:Stable. Lungs and pleura: No new consolidation. No pneumothorax.Heart and mediastinum: Stable contours. Stable surgical changes.Additional findings: None. Signed: JR Moreno Robert MDReport Verified Date/Time: 10/04/2021 07:15:34 Reading Location: [facility] Radiology Reading Room BASIC METABOLIC [id number] 05:55:48 Test Item Value Reference Range Interpretation Comments SODIUM (BEAKER) 134 meq/L 136-145 L (test code = 381) POTASSIUM (BEAKER) 4.4 meq/L 3.5-5.1 (test code = 379) CHLORIDE (BEAKER) 102 meq/L 98-107 (test code = 382) CO2 (BEAKER) (test 25 meq/L 22-29 code = 355) BLOOD UREA NITROGEN 14 mg/dL 7-21 (BEAKER) (test code = 354) CREATININE (BEAKER) 0.81 mg/dL 0.57-1.25 (test code = 358) GLUCOSE RANDOM 126 mg/dL 70-105 H (BEAKER) (test code = 652) CALCIUM (BEAKER) 8.3 mg/dL 8.4-10.2 L (test code = 697) EGFR (BEAKER) (test 95 mL/min/1.73 ESTIMA SHIVAM GFR IS code = 1092) sq m NOT ACCURATE CREATININE CLEARANCE IN PREDICTING GLOMERULAR FILTRATION RATE . ESTIMATED GFR I S NOT APPLICABLE FOR DIALYSIS PATIEN TS. Instrument Repairer Steam Plant ID - YOMI MCBC (HEMOGRAM ONLY)2021-10-04 05:52:57 Test Item Value Reference Range Interpretation Comments WHITE BLOOD CELL COUNT (BEAKER) 10.7 K/ L 3.5-10.5 H (test code = 775) RED BLOOD CELL COUNT (BEAKER) 2.46 M/ L 4.63-6.08 L (test code = 761) HEMOGLOBIN (BEAKER) (test code = 6.9 GM/DL 13.7-17.5 L 410) HEMATOCRIT (BEAKER) (test code = 21.6 % 40.1-51.0 L 411) MEAN CORPUSCULAR VOLUME (BEAKER) 87.8 fL 79.0-92.2 (test code = 753) MEAN CORPUSCULAR HEMOGLOBIN 28.0 pg 25.7-32.2 (BEAKER) (test code = 751) MEAN CORPUSCULAR HEMOGLOBIN CONC 31.9 GM/DL 32.3-36.5 L (BEAKER) (test code = 752) RED CELL DISTRIBUTION WIDTH 13.5 % 11.6-14.4 (BEAKER) (test code = 412) PLATELET COUNT (BEAKER) (test 125 K/CU MM 150-450 L code = 756) MEAN PLATELET VOLUME (BEAKER) 10.7 fL 9.4-12.4 (test code = 754) NUCLEATED RED BLOOD CELLS 0 /100 WBC 0-0 (BEAKER) (test code = 413) CALCIUM, [id number] 05:35:11 Test Item Value Reference Range Interpretation Comments CALCIUM IONIZED (BEAKER) (test 1.10 mmol/L 1.12-1.27 L code = 698) PH, BLOOD (BEAKER) (test code = 7.44 1810) POCT-GLUCOSE [id number] 21:04:29 Test Item Value Reference Range Interpretation Comments POC-GLUCOSE METER 120 mg/dL 70-110 H : TESTED A T [facility] 6720 (BEAKER) (test code = [facility], 1538) 55033: Instrument Repairer Steam Plant/Techni hien ID = [id number] for Re yes, Sairy POCT-GLUCOSE [id number] 17:27:46 Test Item Value Reference Range Interpretation Comments POC-GLUCOSE METER 143 mg/dL 70-110 H : TESTED A T [facility] 6720 (BEAKER) (test code = [facility], 1538) 97299: Instrument Repairer Steam Plant/Techni hien ID = [id number] for Rupert Nguyen RAD, ABDOMEN/KUB, 1 VIEW [id number] 16:55:00Reason for exam:->[facility]omiting [facility] 1955 Sex: MFINAL REPORT EXAM: KUB CLINICAL HISTORY: Vomiting FINDINGS: Air-filled nondilated small and large bowel loops are noted throughout the abdomen which may represent ileus. In addition, moderate retained feces are seen in the ascending colon. There is no gross evidence of pneumoperitoneum. Left-sided chest tube is noted. Degenerative changes are noted throughout the lumbar spine with mild scoliosis. Signed: Freedom Dens[place]port Verified Date/Time: 10/03/2021 16:55:30 Reading Location: [facility] Radiology Reading Room HEMOGLOBIN AND [id number] 13:53:48 Test Item Value Reference Range Interpretation Comments HEMOGLOBIN (BEAKER) (test code = 7.7 GM/DL 13.7-17.5 L 410) HEMATOCRIT (BEAKER) (test code = 24.2 % 40.1-51.0 L 411) Instrument Repairer Steam Plant ID - [id number]-GLUCOSE [id number] 13:36:49 Test Item Value Reference Range Interpretation Comments POC-GLUCOSE METER 125 mg/dL 70-110 H : TESTED A T [facility] 6720 (BEAKER) (test code = [facility] [place], 1538) [address]: Instrument Repairer Steam Plant/Techni hien ID = [id number] for Rupert Nguyen POCT-GLUCOSE [id number] 07:42:31 Test Item Value Reference Range Interpretation Comments POC-GLUCOSE METER 136 mg/dL 70-110 H : TESTED A T [facility] 6720 (MIKAEL) (test code = [facility] [place], 1538) [address]: Instrument Repairer Steam Plant/Techni hien ID = [id number] for Rupert Nguyen RAD, CHEST, 1 VIEW, NON [id number] 07:33:00Reason for exam:->post cv surgeryShould this be performed at the bedside?->Yes [facility] 1955 Sex: MFINAL REPORT RAD, CHEST, 1 VIEW, NON DEPT INDICATION: post cv surgery COMPARISON: Prior day's exam FINDINGS: Portable frontal view of the chest. IMPRESSION: Support Lines:Right IJ central venous catheter has been removed. Surgical drains remain in situ. Lungs and pleura:Right lung is clear. Basilar subsegmental atelectasis on the left. Trace residual left apical pneumot horax.Heart and mediastinum: Stable contours. Stable surgical changes.Additional findings: None. Signed: JR Moreno Robert MDReport Verified Date/Time: 10/03/2021 07:33:44 Reading Location: [facility] Radiology Reading Room MAGNESIUM 2021-10-03 04:15:52 Test Item Value Reference Range Interpretation Comments MAGNESIUM (MIKAEL) (test code = 2.1 mg/dL 1.6-2.6 627) Instrument Repairer Steam Plant ID - YOMI MBASIC METABOLIC [id number] 04:15:51 Test Item Value Reference Range Interpretation Comments SODIUM (BEAKER) 134 meq/L 136-145 L (test code = 381) POTASSIUM (BEAKER) 4.6 meq/L 3.5-5.1 (test code = 379) CHLORIDE (BEAKER) 103 meq/L 98-107 (test code = 382) CO2 (BEAKER) (test 24 meq/L 22-29 code = 355) BLOOD UREA NITROGEN 14 mg/dL 7-21 (BEAKER) (test code = 354) CREATININE (BEAKER) 0.82 mg/dL 0.57-1.25 (test code = 358) GLUCOSE RANDOM 122 mg/dL 70-105 H (BEAKER) (test code = 652) CALCIUM (BEAKER) 8.1 mg/dL 8.4-10.2 L (test code = 697) EGFR (BEAKER) (test 94 mL/min/1.73 ESTIMA SHIVAM GFR IS code = 1092) sq m NOT ACCURATE CREATININE CLEARANCE IN PREDICTING GLOMERULAR FILTRATION RATE . ESTIMATED GFR I S NOT APPLICABLE FOR DIALYSIS PATIEN TS. Instrument Repairer Steam Plant ID - YOMI MCALCIUM, [id number] 04:08:49 Test Item Value Reference Range Interpretation Comments CALCIUM IONIZED (BEAKER) (test 1.11 mmol/L 1.12-1.27 L code = 698) PH, BLOOD (BEAKER) (test code = 7.35 1810) CBC (HEMOGRAM ONLY)2021-10-03 03:47:59 Test Item Value Reference Range Interpretation Comments WHITE BLOOD CELL COUNT (BEAKER) 9.5 K/ L 3.5-10.5 (test code = 775) RED BLOOD CELL COUNT (BEAKER) 2.45 M/ L 4.63-6.08 L (test code = 761) HEMOGLOBIN (BEAKER) (test code = 7.1 GM/DL 13.7-17.5 L 410) HEMATOCRIT (BEAKER) (test code = 22.0 % 40.1-51.0 L 411) MEAN CORPUSCULAR VOLUME (BEAKER) 89.8 fL 79.0-92.2 (test code = 753) MEAN CORPUSCULAR HEMOGLOBIN 29.0 pg 25.7-32.2 (BEAKER) (test code = 751) MEAN CORPUSCULAR HEMOGLOBIN CONC 32.3 GM/DL 32.3-36.5 (BEAKER) (test code = 752) RED CELL DISTRIBUTION WIDTH 13.8 % 11.6-14.4 (BEAKER) (test code = 412) PLATELET COUNT (BEAKER) (test 104 K/CU MM 150-450 L code = 756) MEAN PLATELET VOLUME (BEAKER) 10.3 fL 9.4-12.4 (test code = 754) NUCLEATED RED BLOOD CELLS 0 /100 WBC 0-0 (BEAKER) (test code = 413) POCT-GLUCOSE [id number] 22:01:04 Test Item Value Reference Range Interpretation Comments POC-GLUCOSE METER 144 mg/dL 70-110 H : TESTED A T [facility] 6720 (BEAKER) (test code = [facility], 1538) 72352: Instrument Repairer Steam Plant/Techni hien ID = [id number] for MU HERMILAIKIMBERLYSI POCT-GLUCOSE [id number] 16:06:21 Test Item Value Reference Range Interpretation Comments POC-GLUCOSE METER 165 mg/dL 70-110 H : TESTED A T [facility] 6720 (BEAKER) (test code = [facility], 1538) 37444: Instrument Repairer Steam Plant/Techni hien ID = [id number] for PH ILIWILDA Ocampo LACTATE DEHYDROGENASE (LDH)2021-10-02 15:33:16 Test Item Value Reference Range Interpretation Comments LACTATE DEHYDROGENASE (BEAKER) (test 248 U/L 125-220 H code = 635) Instrument Repairer Steam Plant ID - BSHEPATIC FUNCTION [id number] 15:33:15 Test Item Value Reference Range Interpretation Comments TOTAL PROTEIN (BEAKER) (test code = 4.7 gm/dL 6.0-8.3 L 770) ALBUMIN (BEAKER) (test code = 1145) 3.1 g/dL 3.5-5.0 L BILIRUBIN TOTAL (BEAKER) (test code 1.9 mg/dL 0.2-1.2 H = 377) BILIRUBIN DIRECT (BEAKER) (test 0.9 mg/dL 0.1-0.5 H code = 706) ALKALINE PHOSPHATASE (BEAKER) (test 57 U/L 40-150 code = 346) AST (SGOT) (WILAKER) (test code = 31 U/L 5-34 353) ALT (SGPT) (MIKAEL) (test code = 27 U/L 6-55 347) Instrument Repairer Steam Plant ID - BSRETICULOCYTE [id number] 14:14:16 Test Item Value Reference Range Interpretation Comments RETICULOCYTE COUNT PCT (MIKAEL) (test 1.2 % 0.5-1.8 code = 575) Instrument Repairer Steam Plant ID - [id number]-GLUCOSE [id number] 11:33:33 Test Item Value Reference Range Interpretation Comments POC-GLUCOSE METER 193 mg/dL 70-110 H : TESTED A T [facility] 6720 (MIKAEL) (test code = [facility] [place], 1538) 02667: Instrument Repairer Steam Plant/Techni hien ID = [id number] for PH ILIP, WILDA MISCELLANEOUS LAB [id number] 08:06:38 Test Item Value Reference Range Interpretation Comments SCAN RESULT (test code = 6190746) See scanned reportRAD, CHEST, 1 VIEW, NON [id number] 07:20:00while patient is intubated or has chest tubes.Reason for exam:->Status post CV SurgeryShould thisbe performed at the bedside?->Yes [facility] 1955 Sex: MFINAL REPORT RAD, CHEST, 1 VIEW, NON DEPT INDICATION: Status post CV Surgery COMPARISON: Prior day's exam FINDINGS: Portable frontal view of the chest. IMPRESSION: SupportLines: Interval extubation and removal of enteric tube. Remaining support hardware is stable. Lungs and pleura: Scattered subsegmental atelectasis on the left. Right lung is clear. No pneumothorax.Heart and mediastinum: Stable contours. Stable surgical changes.Additional findings: None. Signed: JR Moreno Robert MDReport Verified Date/Time: 10/02/2021 07:20:58 Reading Location: [facility] Radiology Reading Room POCT-ACT 2021-10-02 06:27:20 Test Item Value Reference Range Interpretation Comments ACTIVATED CLOTTING TIME 106 sec : 74 -137 seconds, (BEAKER) (test code = Baseli ne: TESTED AT 441) [place] [address] 30: Instrument Repairer Steam Plant/Techni hien ID = [id number] for HU DSPETH, COREY [id number] 06:27:19 Test Item Value Reference Range Interpretation Comments ACTIVATED CLOTTING TIME 118 sec : 74 -137 seconds, (BEAKER) (test code = Baseli ne: TESTED AT 441) [place] [address] 30: Instrument Repairer Steam Plant/Techni hien ID = [id number] for PARDEEP WOODSON KATJA [id number] 06:26:51 Test Item Value Reference Range Interpretation Comments ACTIVATED CLOTTING TIME 398 sec : 74 -137 seconds, (BEAKER) (test code = Baseli ne: TESTED AT 441) [place] [address] 30: Instrument Repairer Steam Plant/Techni hien ID = [id number] for HU DSPETH, COREY [id number] 06:26:50 Test Item Value Reference Range Interpretation Comments ACTIVATED CLOTTING TIME 523 sec : 74 -137 seconds, (BEAKER) (test code = Baseli ne: TESTED AT 441) [place] [address] 30: Instrument Repairer Steam Plant/Techni hien ID = [id number] for HU DSPETH, COREY [id number] 06:26:49 Test Item Value Reference Range Interpretation Comments ACTIVATED CLOTTING TIME 523 sec : 74 -137 seconds, (BEAKER) (test code = Baseli ne: TESTED AT 441) [place] [address] 30: Instrument Repairer Steam Plant/Techni hien ID = [id number] for HU DSPETH, COREY [id number] 06:26:49 Test Item Value Reference Range Interpretation Comments ACTIVATED CLOTTING TIME 600 sec : 74 -137 seconds, (BEAKER) (test code = Baseli ne: TESTED AT 441) [facility] 67[address] [facility], [address] 30: Instrument Repairer Steam Plant/Techni hien ID = [id number] for COREY MOELLER [id number] 06:26:48 Test Item Value Reference Range Interpretation Comments ACTIVATED CLOTTING TIME 571 sec : 74 -137 seconds, (BEAKER) (test code = Baseli ne: TESTED AT 441) [facility] 67[address] [facility], 7[address] 30: Instrument Repairer Steam Plant/Techni hien ID = [id number] for COREY MOELLER [id number] 06:26:47 Test Item Value Reference Range Interpretation Comments ACTIVATED CLOTTING TIME 416 sec : 74 -137 seconds, (BEAKER) (test code = [place] ne: TESTED AT 441) [address], [address] 30: Instrument Repairer Steam Plant/Techni hien ID = [id number] for COREY MOELLER POCT-GLUCOSE [id number] 06:16:46 Test Item Value Reference Range Interpretation Comments POC-GLUCOSE METER 174 mg/dL 70-110 H : TESTED A T [place] [address] (BEAKER) (test code = [facility], 1538) [address]: Instrument Repairer Steam Plant/Techni hien ID = [id number] for Ashanti Shane BASIC METABOLIC [id number] 03:20:00 Test Item Value Reference Range Interpretation Comments SODIUM (BEAKER) 139 meq/L 136-145 (test code = 381) POTASSIUM (BEAKER) 4.9 meq/L 3.5-5.1 Specimen slightly (test code = 379) hemolyzed CHLORIDE (BEAKER) 110 meq/L 98-107 H (test code = 382) CO2 (BEAKER) (test 19 meq/L 22-29 L code = 355) BLOOD UREA NITROGEN 17 mg/dL 7-21 (BEAKER) (test code = 354) CREATININE (BEAKER) 0.84 mg/dL 0.57-1.25 Specimen slightly (test code = 358) hemolyzed GLUCOSE RANDOM 177 mg/dL 70-105 H (BEAKER) (test code = 652) CALCIUM (BEAKER) 7.8 mg/dL 8.4-10.2 L (test code = 697) EGFR (BEAKER) (test 91 mL/min/1.73 ESTIMA SHIVAM GFR IS code = 1092) sq m NOT ACCURATE CREATININE CLEARANCE IN PREDICTING GLOMERULAR FILTRATION RATE . ESTIMATED GFR I S NOT APPLICABLE FOR DIALYSIS PATIEN TS. Instrument Repairer Steam Plant ID - [id number] 03:11:39 Test Item Value Reference Range Interpretation Comments PHOSPHORUS (BEAKER) 4.2 mg/dL 2.3-4.7 Specimen slightly (test code = 604) hemolyzed Instrument Repairer Steam Plant ID - [id number] 03:11:38 Test Item Value Reference Range Interpretation Comments MAGNESIUM (BEAKER) 2.3 mg/dL 1.6-2.6 Specimen slightly (test code = 627) hemolyzed Instrument Repairer Steam Plant ID - DBCALCIUM, [id number] 02:39:31 Test Item Value Reference Range Interpretation Comments CALCIUM IONIZED (BEAKER) (test 1.10 mmol/L 1.12-1.27 L code = 698) PH, BLOOD (BEAKER) (test code = 7.37 1810) BLOOD GAS, [id number] 02:39:21 Test Item Value Reference Range Interpretation Comments PH ARTERIAL (BEAKER) (test code = 7.35 7.35-7.45 383) PCO2 ARTERIAL (BEAKER) (test code 43 mm Hg 35-45 = 384) PO2 ARTERIAL (BEAKER) (test code 147 mm Hg 80-90 H = 385) O2 SATURATION ARTERIAL (BEAKER) 98.7 % 96.0-97.0 H (test code = 386) HCO3 ARTERIAL (BEAKER) (test code 23 mmol/L 21-29 = 388) BASE EXCESS ARTERIAL (BEAKER) -2.5 mmol/L -2.0-3.0 L (test code = 387) PATIENT TEMPERATURE (BEAKER) 38.4 (test code = 1818) FIO2 (BEAKER) (test code = 1819) 36.0 CBC (HEMOGRAM ONLY)2021-10-02 02:39:13 Test Item Value Reference Range Interpretation Comments WHITE BLOOD CELL COUNT (BEAKER) 14.8 K/ L 3.5-10.5 H (test code = 775) RED BLOOD CELL COUNT (BEAKER) 2.88 M/ L 4.63-6.08 L (test code = 761) HEMOGLOBIN (BEAKER) (test code = 8.1 GM/DL 13.7-17.5 L 410) HEMATOCRIT (BEAKER) (test code = 25.3 % 40.1-51.0 L 411) MEAN CORPUSCULAR VOLUME (BEAKER) 87.8 fL 79.0-92.2 (test code = 753) MEAN CORPUSCULAR HEMOGLOBIN 28.1 pg 25.7-32.2 (BEAKER) (test code = 751) MEAN CORPUSCULAR HEMOGLOBIN CONC 32.0 GM/DL 32.3-36.5 L (BEAKER) (test code = 752) RED CELL DISTRIBUTION WIDTH 13.8 % 11.6-14.4 (BEAKER) (test code = 412) PLATELET COUNT (BEAKER) (test 165 K/CU MM 150-450 code = 756) MEAN PLATELET VOLUME (BEAKER) 11.0 fL 9.4-12.4 (test code = 754) NUCLEATED RED BLOOD CELLS 0 /100 WBC 0-0 (BEAKER) (test code = 413) CALCIUM, [id number] 21:15:54 Test Item Value Reference Range Interpretation Comments CALCIUM IONIZED (BEAKER) (test 1.06 mmol/L 1.12-1.27 L code = 698) PH, BLOOD (BEAKER) (test code = 7.41 1810) HGB/HCT (H&H) - STAT [id number] 21:15:12 Test Item Value Reference Range Interpretation Comments HEMOGLOBIN (BEAKER) (test code = 8.6 GM/DL 13.0-16.8 L 410) HEMATOCRIT (BEAKER) (test code = 25.0 % 40.0-50.0 L 411) GLUCOSE-STAT [id number] 21:15:11 Test Item Value Reference Range Interpretation Comments GLUCOSE RANDOM (BEAKER) (test code 203 mg/dL 70-110 H = 652) BLOOD GAS, [id number] 21:15:10 Test Item Value Reference Range Interpretation Comments PH ARTERIAL (BEAKER) (test code = 7.39 7.35-7.45 383) PCO2 ARTERIAL (BEAKER) (test code 37 mm Hg 35-45 = 384) PO2 ARTERIAL (BEAKER) (test code 165 mm Hg 80-90 H = 385) O2 SATURATION ARTERIAL (BEAKER) 99.1 % 96.0-97.0 H (test code = 386) HCO3 ARTERIAL (BEAKER) (test code 22 mmol/L 21-29 = 388) BASE EXCESS ARTERIAL (BEAKER) -2.7 mmol/L -2.0-3.0 L (test code = 387) PATIENT TEMPERATURE (BEAKER) 38.1 (test code = 1818) FIO2 (BEAKER) (test code = 1819) 36.0 POTASSIUM-STAT [id number] 21:14:48 Test Item Value Reference Range Interpretation Comments POTASSIUM (BEAKER) (test code = 4.5 meq/L 3.6-5.5 379) SODIUM NA-STAT [id number] 21:14:47 Test Item Value Reference Range Interpretation Comments SODIUM (BEAKER) (test code = 381) 136 meq/L 136-145 CALCIUM, [id number] 18:39:56 Test Item Value Reference Range Interpretation Comments CALCIUM IONIZED (BEAKER) (test 1.03 mmol/L 1.12-1.27 L code = 698) PH, BLOOD (BEAKER) (test code = 7.38 1809) BLOOD GAS, [id number] 18:39:50 Test Item Value Reference Range Interpretation Comments PH ARTERIAL (BEAKER) (test code = 7.39 7.35-7.45 383) PCO2 ARTERIAL (BEAKER) (test code 36 mm Hg 35-45 = 384) PO2 ARTERIAL (BEAKER) (test code 172 mm Hg 80-90 H = 385) O2 SATURATION ARTERIAL (BEAKER) 99.2 % 96.0-97.0 H (test code = 386) HCO3 ARTERIAL (BEAKER) (test code 21 mmol/L -29 = 388) BASE EXCESS ARTERIAL (BEAKER) -3.4 mmol/L -2.0-3.0 L (test code = 387) PATIENT TEMPERATURE (BEAKER) 36.6 (test code = 1818) FIO2 (BEAKER) (test code = 1819) 40.0 LACTIC ACID, [id number] 17:35:06 Test Item Value Reference Range Interpretation Comments LACTATE BLOOD ARTERIAL (2) 1.1 mmol/L 0.5-2.2 (BEAKER) (test code = 2874) Instrument Repairer Steam Plant ID - DBGLUCOSE-STAT [id number] 17:19:38 Test Item Value Reference Range Interpretation Comments GLUCOSE RANDOM (BEAKER) (test code 183 mg/dL 70-110 H = 652) BLOOD GAS, [id number] 17:19:37 Test Item Value Reference Range Interpretation Comments PH ARTERIAL (BEAKER) (test code = 7.39 7.35-7.45 383) PCO2 ARTERIAL (BEAKER) (test code 32 mm Hg 35-45 L = 384) PO2 ARTERIAL (BEAKER) (test code 212 mm Hg 80-90 H = 385) O2 SATURATION ARTERIAL (BEAKER) 99.4 % 96.0-97.0 H (test code = 386) HCO3 ARTERIAL (BEAKER) (test code 19 mmol/L 21-29 L = 388) BASE EXCESS ARTERIAL (BEAKER) -5.2 mmol/L -2.0-3.0 L (test code = 387) PATIENT TEMPERATURE (BEAKER) 36.1 (test code = 1818) FIO2 (BEAKER) (test code = 1819) 50.0 BASIC METABOLIC [id number] 16:17:21 Test Item Value Reference Range Interpretation Comments SODIUM (BEAKER) 138 meq/L 136-145 (test code = 381) POTASSIUM (BEAKER) 4.5 meq/L 3.5-5.1 (test code = 379) CHLORIDE (BEAKER) 111 meq/L 98-107 H (test code = 382) CO2 (BEAKER) (test 16 meq/L 22-29 L code = 355) BLOOD UREA NITROGEN 19 mg/dL 7-21 (BEAKER) (test code = 354) CREATININE (BEAKER) 0.81 mg/dL 0.57-1.25 (test code = 358) GLUCOSE RANDOM 196 mg/dL 70-105 H (BEAKER) (test code = 652) CALCIUM (BEAKER) 7.7 mg/dL 8.4-10.2 L (test code = 697) EGFR (BEAKER) (test 95 mL/min/1.73 ESTIMA SHIVAM GFR IS code = 1092) sq m NOT ACCURATE CREATININE CLEARANCE IN PREDICTING GLOMERULAR FILTRATION RATE . ESTIMATED GFR I S NOT APPLICABLE FOR DIALYSIS PATIEN TS. Instrument [employer] ID - [id number] 16:10:13 Test Item Value Reference Range Interpretation Comments PHOSPHORUS (BEAKER) (test code = 4.0 mg/dL 2.3-4.7 604) Instrument [employer] ID - [id number] 16:10:11 Test Item Value Reference Range Interpretation Comments MAGNESIUM (BEAKER) (test code = 2.1 mg/dL 1.6-2.6 627) Instrument Rep[employer] ID - DB(CELLAVISION MANUAL DIFF)[id number] 16:09:40 Test Item Value Reference Range Interpretation Comments NEUTROPHILS - REL 88 % (CELLAVISION)(BEAKER) (test code = 2816) LYMPHOCYTES - REL 5 % (CELLAVISION)(BEAKER) (test code = 2817) MONOCYTES - REL 3 % (CELLAVISION)(BEAKER) (test code = 2818) BANDS - REL (CELLAVISION)(BEAKER) 4 % 0-10 (test code = 2826) NEUTROPHILS - ABS 26.14 K/ul 1.78-5.38 H (CELLAVISION)(BEAKER) (test code = 2830) LYMPHOCYTES - ABS 1.49 K/ul 1.32-3.57 (CELLAVISION)(BEAKER) (test code = 2831) MONOCYTES - ABS 0.89 K/uL 0.30-0.82 H (CELLAVISION)(BEAKER) (test code = 2832) BANDS - ABS (CELLAVISION)(BEAKER) 1.19 K/uL 0.00-0.80 H (test code = 2840) TOTAL COUNTED (BEAKER) (test code 100 = 1351) SMUDGE CELLS (BEAKER) (test code = Present 1371) LARGE PLT(BEAKER) (test code = Present 2156) POIKILOCYTES (BEAKER) (test code = 1+ few 966) SPHEROCYTES (BEAKER) (test code = 1+ few 768) OVALOCYTES (BEAKER) (test code = 1+ few 477) PLATELET CONCENTRATION Adequate (CELLAVISION)(BEAKER) (test code = 3438) Instrument [employer] ID - Mirtha Gerardo comments: Slide comments:OXYGEN SATURATION, [id number] 16:08:07 Test Item Value Reference Range Interpretation Comments O2 SATURATION (MEASURED) (BEAKER) 84.9 % (test code = 1455) CBC W/PLT COUNT & AUTO [id number] 16:06:21 Test Item Value Reference Range Interpretation Comments WHITE BLOOD CELL COUNT (BEAKER) 29.7 K/ L 3.5-10.5 H (test code = 775) RED BLOOD CELL COUNT (BEAKER) 3.48 M/ L 4.63-6.08 L (test code = 761) HEMOGLOBIN (BEAKER) (test code = 10.0 GM/DL 13.7-17.5 L 410) HEMATOCRIT (BEAKER) (test code = 30.3 % 40.1-51.0 L 411) MEAN CORPUSCULAR VOLUME (BEAKER) 87.1 fL 79.0-92.2 (test code = 753) MEAN CORPUSCULAR HEMOGLOBIN 28.7 pg 25.7-32.2 (BEAKER) (test code = 751) MEAN CORPUSCULAR HEMOGLOBIN CONC 33.0 GM/DL 32.3-36.5 (BEAKER) (test code = 752) RED CELL DISTRIBUTION WIDTH 13.6 % 11.6-14.4 (BEAKER) (test code = 412) PLATELET COUNT (BEAKER) (test 214 K/CU MM 150-450 code = 756) MEAN PLATELET VOLUME (BEAKER) 10.6 fL 9.4-12.4 (test code = 754) NUCLEATED RED BLOOD CELLS 0 /100 WBC 0-0 (BEAKER) (test code = 413) RAD, CHEST, 1 VIEW, NON [id number] 16:06:00Reason for exam:->post cv surgeryShould this be performed at the bedside?->Yes [facility] CENTERName: DAMEON VALADEZ : 1955 Sex: MFINAL REPORT Exam: RAD, CHEST, 1 VIEW, NON DEPTDate: 10/01/2021 4:04 PM Indication: Postoperative Comparison: Chest radiograph 09/23/2021 FINDINGS: Lines/Tubes:Endotracheal tube terminates approximately 8 cm above the amaris. Right IJ central venous catheter terminates in the SVC. Left basilar chest tube and mediastinal drain. Enteric tube projects below the diaphragm with tip not seen and side-port near the GE junction. EKG leads overlie the chest. Lungs:The lungs are well inflated. No focal consolidation or pulmonary edema. Pleura:No pleural effusion. No pneumothorax. Heart/Mediastinum:The cardiomediastinal silhouette is normal in size and contour. Postoperative findings of CABG. Bones/Soft Tissues: No acute osseous injury. Sternotomy wires in place. Abdomen: No free air below the diaphragm. IMPRESSION:Lines and tubes as above. No pneumothorax, focal pneumonia, or pulmonary edema. Signed: Fernanda [facility]idast. [facility] Verified Date/Time: 10/01/2021 16:06:03 Reading Location: [address] Transitional Reading Room LACTIC ACID, [id number] 16:05:33 Test Item Value Reference Range Interpretation Comments LACTATE BLOOD ARTERIAL (2) 1.2 mmol/L 0.5-2.2 (BEAKER) (test code = 2874) Instrument Repairer [employer] ID - [id number]/HCT (H&H) - STAT [id number] 16:05:30 Test Item Value Reference Range Interpretation Comments HEMOGLOBIN (BEAKER) (test code = 10.6 GM/DL 13.0-16.8 L 410) HEMATOCRIT (BEAKER) (test code = 31.0 % 40.0-50.0 L 411) GLUCOSE-STAT [id number] 16:05:29 Test Item Value Reference Range Interpretation Comments GLUCOSE RANDOM (BEAKER) (test code 202 mg/dL 70-110 H = 652) BLOOD GAS, [id number] 16:05:17 Test Item Value Reference Range Interpretation Comments PH ARTERIAL (BEAKER) (test code = 7.31 7.35-7.45 L 383) PCO2 ARTERIAL (BEAKER) (test code 38 mm Hg 35-45 = 384) PO2 ARTERIAL (BEAKER) (test code 225 mm Hg 80-90 H = 385) O2 SATURATION ARTERIAL (BEAKER) 99.4 % 96.0-97.0 H (test code = 386) HCO3 ARTERIAL (BEAKER) (test code 19 mmol/L 21-29 L = 388) BASE EXCESS ARTERIAL (BEAKER) -7.3 mmol/L -2.0-3.0 L (test code = 387) PATIENT TEMPERATURE (BEAKER) 36.6 (test code = 1818) FIO2 (BEAKER) (test code = 1819) 60.0 CALCIUM, [id number] 16:04:55 Test Item Value Reference Range Interpretation Comments CALCIUM IONIZED (BEAKER) (test 1.13 mmol/L 1.12-1.27 code = 698) PH, BLOOD (BEAKER) (test code = 7.30 1810) POTASSIUM-STAT [id number] 16:04:50 Test Item Value Reference Range Interpretation Comments POTASSIUM (BEAKER) (test code = 4.3 meq/L 3.6-5.5 379) SODIUM NA-STAT [id number] 16:04:49 Test Item Value Reference Range Interpretation Comments SODIUM (BEAKER) (test code = 381) 135 meq/L 136-145 L [id number] 15:59:27 Test Item Value Reference Range Interpretation Comments PARTIAL THROMBOPLASTIN TIME 31.0 seconds 22.5-36.0 (BEAKER) (test code = 760) [id number] 15:59:04 Test Item Value Reference Range Interpretation Comments FIBRINOGEN LEVEL (BEAKER) (test 355 mg/dl 225-434 code = 658) PROTHROMBIN [id number] 15:58:47 Test Item Value Reference Range Interpretation Comments PROTIME (BEAKER) 17.7 seconds 11.9-14.2 H (test code = 759) INR (BEAKER) (test 1.48 See_Comment [Automat ed message] code = 370) The system [employer] generated this result transmitted ref erence range: <=5.90. The reference range was not used to int erpret this result as normal/abnormal . RECOMMENDED COUMADIN/WARFARIN INR THERAPY RANGESSTANDARD DOSE: 2.0 - 3.0 Includes: PROPHYLAXIS forvenous thrombosis, systemic embolization; TREATMENT for venous thrombosis and/or pulmonary embolus.HIGH RISK: Target INR is 2.5-3.5 for patients with mechanical heart valves.FLOW CYTOMETRY [id number] 13:39:09 Test Item Value Reference Range Interpretation Comments FLOW CYTOMETRY RESULT See Separate Report POINTER (BEAKER) (test code = 2758) FLOW CYTOMETRY AP CASE # [id number] (BEAKER) (test code = 2759) [id number] 13:19:22 Test Item Value Reference Range Interpretation Comments PARTIAL THROMBOPLASTIN TIME 33.0 seconds 22.5-36.0 (BEAKER) (test code = 760) [id number] 13:19:05 Test Item Value Reference Range Interpretation Comments FIBRINOGEN LEVEL (BEAKER) (test 350 mg/dl 225-434 code = 658) PROTHROMBIN [id number] 13:18:41 Test Item Value Reference Range Interpretation Comments PROTIME (BEAKER) 20.4 seconds 11.9-14.2 H (test code = 759) INR (BEAKER) (test 1.78 See_Comment [Automat ed message] code = 370) The system [employer] generated this result transmitted ref erence range: <=5.90. The reference range was not used to int erpret this result as normal/abnormal . RECOMMENDED COUMADIN/WARFARIN INR THERAPY RANGESSTANDARD DOSE: 2.0 - 3.0 Includes: PROPHYLAXIS forvenous thrombosis, systemic embolization; TREATMENT for venous thrombosis and/or pulmonary embolus.HIGH RISK: Target INR is 2.5-3.5 for patients with mechanical heart valves.CALCIUM, [id number] 13:12:08 Test Item Value Reference Range Interpretation Comments CALCIUM IONIZED (BEAKER) (test 1.07 mmol/L 1.12-1.27 L code = 698) PH, BLOOD (BEAKER) (test code = 7.35 1810) PLATELET [id number] 13:11:41 Test Item Value Reference Range Interpretation Comments PLATELET COUNT (BEAKER) (test 172 K/CU MM 150-450 code = 756) Instrument Repairer [employer] ID - [id number] (H&H) - STAT [id number] 13:11:29 Test Item Value Reference Range Interpretation Comments HEMOGLOBIN (BEAKER) (test code = 8.9 GM/DL 13.0-16.8 L 410) HEMATOCRIT (BEAKER) (test code = 26.0 % 40.0-50.0 L 411) BLOOD GAS, [id number] 13:11:29 Test Item Value Reference Range Interpretation Comments PH ARTERIAL (BEAKER) (test code = 7.36 7.35-7.45 383) PCO2 ARTERIAL (BEAKER) (test code 37 mm Hg 35-45 = 384) PO2 ARTERIAL (BEAKER) (test code 319 mm Hg 80-90 H = 385) O2 SATURATION ARTERIAL (BEAKER) 99.7 % 96.0-97.0 H (test code = 386) HCO3 ARTERIAL (BEAKER) (test code 21 mmol/L 21-29 = 388) BASE EXCESS ARTERIAL (BEAKER) -4.7 mmol/L -2.0-3.0 L (test code = 387) PATIENT TEMPERATURE (BEAKER) 35.9 (test code = 1818) FIO2 (BEAKER) (test code = 1819) 100.0 GLUCOSE-STAT [id number] 13:11:28 Test Item Value Reference Range Interpretation Comments GLUCOSE RANDOM (BEAKER) (test code 208 mg/dL 70-110 H = 652) SODIUM NA-STAT [id number] 13:11:27 Test Item Value Reference Range Interpretation Comments SODIUM (BEAKER) (test code = 381) 133 meq/L 136-145 L POTASSIUM-STAT [id number] 13:06:25 Test Item Value Reference Range Interpretation Comments POTASSIUM (BEAKER) (test code = 4.5 meq/L 3.6-5.5 379) HGB/HCT (H&H) - STAT [id number] 12:20:34 Test Item Value Reference Range Interpretation Comments HEMOGLOBIN (BEAKER) (test code = 10.1 GM/DL 13.0-16.8 L 410) HEMATOCRIT (BEAKER) (test code = 30.0 % 40.0-50.0 L 411) SODIUM NA-STAT [id number] 12:20:33 Test Item Value Reference Range Interpretation Comments SODIUM (BEAKER) (test code = 381) 132 meq/L 136-145 L GLUCOSE-STAT [id number] 12:20:33 Test Item Value Reference Range Interpretation Comments GLUCOSE RANDOM (BEAKER) (test code 223 mg/dL 70-110 H = 652) BLOOD GAS, [id number] 12:20:32 Test Item Value Reference Range Interpretation Comments PH ARTERIAL (BEAKER) (test code = 7.33 7.35-7.45 L 383) PCO2 ARTERIAL (BEAKER) (test code 42 mm Hg 35-45 = 384) PO2 ARTERIAL (BEAKER) (test code 273 mm Hg 80-90 H = 385) O2 SATURATION ARTERIAL (BEAKER) 99.6 % 96.0-97.0 H (test code = 386) HCO3 ARTERIAL (BEAKER) (test code 22 mmol/L 21-29 = 388) BASE EXCESS ARTERIAL (BEAKER) -3.8 mmol/L -2.0-3.0 L (test code = 387) PATIENT TEMPERATURE (BEAKER) 36.0 (test code = 1818) FIO2 (BEAKER) (test code = 1819) 100.0 POTASSIUM-STAT [id number] 12:20:11 Test Item Value Reference Range Interpretation Comments POTASSIUM (BEAKER) (test code = 5.5 meq/L 3.6-5.5 379) POTASSIUM-STAT [id number] 12:12:03 Test Item Value Reference Range Interpretation Comments POTASSIUM (BEAKER) (test code = 6.2 meq/L 3.6-5.5 HH 379) FLOW [id number] 12:08:58Flow Cytometry Report Case: [id number] Authorizing Provider: Benedict Pelayo MD Collected: 09/29/2021 05:19 AM Ordering Location: [address] Received: 10/01/2021 07:19 AM Service Pathologist: Guillermo Wilks MD Specimen: Other PERIPHERAL BLOOD,FLOW CYTOMETRY:-NO ABERRANT T LYMPHOCYTE POPULATION-NO MONOTYPIC B LYMPHOCYTE POPULATION-NO CIRCULATING BLASTS [id number] year old man with leukocytosisPeripheral BloodCD8, surface- Gordon, CD56, surface-Lambda, CD5, CD19, CD10, CD3, CD20, CD4, CD45, CD14, CD13, CD33, CD117, [id number] Viability: 85.2% Number of Events Acquired: [id number] The following populations are identified: Blasts: No dim CD45+ CD34+ blasts.Lymphocytes: Bright CD45+ lymphocytes comprise 23.3% of total cells. T cells show a CD4:CD8 ratio of 3.4 and normal expression of the braxton T cell antigens CD3 and CD5. B cells are polytypic with a kappa:lambda ratio of 1.7. Myeloid/monocytic populations: As identified by CD45 and light scatter characteristics, granulocytes comprise the majority of cells analyzed, and CD14+ monocytes comprise 8.2% of total cells. The remaining events analyzed represent nonviable cells, non-hematolymphoid cells, and debris.These tests were developed and their performance characteristics determined by [facility] They have not been cleared or approved by the U.S. Food and Drug Administration. The FDA has determined thatsuch clearance or approval is not necessary. It should not be regarded as investigational or for research. This laboratory is certified under the Clinical Laboratory Improvement Amendments of 1988 ("CLIA") as qualified to perform high-complexity clinical testing.[facility], Department of Pathology, [address] [place] [id number], [facility] of [facility], [address] [place] [address], TQO/HCT (H&H) - STAT [id number] 12:03:39 Test Item Value Reference Range Interpretation Comments HEMOGLOBIN (BEAKER) (test code = 9.5 GM/DL 13.0-16.8 L 410) HEMATOCRIT (BEAKER) (test code = 28.0 % 40.0-50.0 L 411) GLUCOSE-STAT [id number] 12:03:38 Test Item Value Reference Range Interpretation Comments GLUCOSE RANDOM (BEAKER) (test code 244 mg/dL 70-110 H = 652) SODIUM NA-STAT [id number] 12:03:37 Test Item Value Reference Range Interpretation Comments SODIUM (BEAKER) (test code = 381) 131 meq/L 136-145 L BLOOD GAS, [id number] 12:03:36 Test Item Value Reference Range Interpretation Comments PH ARTERIAL (BEAKER) (test code = 7.42 7.35-7.45 383) PCO2 ARTERIAL (BEAKER) (test code 39 mm Hg 35-45 = 384) PO2 ARTERIAL (BEAKER) (test code = 314 mm Hg 80-90 H 385) O2 SATURATION ARTERIAL (BEAKER) 99.7 % 96.0-97.0 H (test code = 386) HCO3 ARTERIAL (BEAKER) (test code 26 mmol/L 21-29 = 388) BASE EXCESS ARTERIAL (BEAKER) 0.2 mmol/L -2.0-3.0 (test code = 387) PATIENT TEMPERATURE (BEAKER) (test 33.0 code = 1818) FIO2 (BEAKER) (test code = 1819) 85.0 POTASSIUM-STAT [id number] 11:30:43 Test Item Value Reference Range Interpretation Comments POTASSIUM (BEAKER) (test code = 6.0 meq/L 3.6-5.5 HH 379) GLUCOSE-STAT [id number] 11:29:50 Test Item Value Reference Range Interpretation Comments GLUCOSE RANDOM (BEAKER) (test code 226 mg/dL 70-110 H = 652) HGB/HCT (H&H) - STAT [id number] 11:29:50 Test Item Value Reference Range Interpretation Comments HEMOGLOBIN (BEAKER) (test code = 8.5 GM/DL 13.0-16.8 L 410) HEMATOCRIT (BEAKER) (test code = 25.0 % 40.0-50.0 L 411) SODIUM NA-STAT [id number] 11:29:49 Test Item Value Reference Range Interpretation Comments SODIUM (BEAKER) (test code = 381) 132 meq/L 136-145 L BLOOD GAS, [id number] 11:29:48 Test Item Value Reference Range Interpretation Comments PH ARTERIAL (BEAKER) (test code = 7.43 7.35-7.45 383) PCO2 ARTERIAL (BEAKER) (test code 41 mm Hg 35-45 = 384) PO2 ARTERIAL (BEAKER) (test code = 248 mm Hg 80-90 H 385) O2 SATURATION ARTERIAL (BEAKER) 99.6 % 96.0-97.0 H (test code = 386) HCO3 ARTERIAL (BEAKER) (test code 28 mmol/L 21-29 = 388) BASE EXCESS ARTERIAL (BEAKER) 2.0 mmol/L -2.0-3.0 (test code = 387) PATIENT TEMPERATURE (BEAKER) (test 30.5 code = 1818) FIO2 (BEAKER) (test code = 1819) 70.0 BLOOD GAS, [id number] 11:07:15 Test Item Value Reference Range Interpretation Comments PH VENOUS (BEAKER) (test code = 7.36 7.32-7.42 701) PCO2 VENOUS (BEAKER) (test code = 41 mm Hg 41-51 755) PO2 VENOUS (BEAKER) (test code = 77 mm Hg 25-40 H 702) O2 SATURATION VENOUS (BEAKER) 96.0 % 40.0-70.0 H (test code = 703) HCO3 VENOUS (BEAKER) (test code = 23 mmol/L 21-29 705) BASE EXCESS VENOUS (BEAKER) (test -2.7 mmol/L -2.0-3.0 L code = 704) PATIENT TEMPERATURE (BEAKER) 35.0 (test code = 1818) FIO2 (BEAKER) (test code = 1819) 80.0 HGB/HCT (H&H) - STAT [id number] 11:03:29 Test Item Value Reference Range Interpretation Comments HEMOGLOBIN (BEAKER) (test code = 8.8 GM/DL 13.0-16.8 L 410) HEMATOCRIT (BEAKER) (test code = 26.0 % 40.0-50.0 L 411) GLUCOSE-STAT [id number] 11:03:28 Test Item Value Reference Range Interpretation Comments GLUCOSE RANDOM (BEAKER) (test code 119 mg/dL 70-110 H = 652) BLOOD GAS, [id number] 11:03:27 Test Item Value Reference Range Interpretation Comments PH ARTERIAL (BEAKER) (test code = 7.44 7.35-7.45 383) PCO2 ARTERIAL (BEAKER) (test code 31 mm Hg 35-45 L = 384) PO2 ARTERIAL (BEAKER) (test code 344 mm Hg 80-90 H = 385) O2 SATURATION ARTERIAL (BEAKER) 99.8 % 96.0-97.0 H (test code = 386) HCO3 ARTERIAL (BEAKER) (test code 22 mmol/L 21-29 = 388) BASE EXCESS ARTERIAL (BEAKER) -3.1 mmol/L -2.0-3.0 L (test code = 387) PATIENT TEMPERATURE (BEAKER) 33.0 (test code = 1818) FIO2 (BEAKER) (test code = 1819) 100.0 SODIUM NA-STAT [id number] 11:03:27 Test Item Value Reference Range Interpretation Comments SODIUM (BEAKER) (test code = 381) 127 meq/L 136-145 L POTASSIUM-STAT [id number] 11:02:40 Test Item Value Reference Range Interpretation Comments POTASSIUM (BEAKER) (test code = 4.7 meq/L 3.6-5.5 379) HEMOGLOBIN [id number] 08:40:42 Test Item Value Reference Range Interpretation Comments HEMOGLOBIN A1C (BEAKER) (test code = 7.1 % 4.3-6.1 H 368) SODIUM NA-STAT [id number] 08:13:50 Test Item Value Reference Range Interpretation Comments SODIUM (BEAKER) (test code = 381) 133 meq/L 136-145 L HGB/HCT (H&H) - STAT [id number] 08:13:44 Test Item Value Reference Range Interpretation Comments HEMOGLOBIN (BEAKER) (test code = 12.6 GM/DL 13.0-16.8 L 410) HEMATOCRIT (BEAKER) (test code = 37.0 % 40.0-50.0 L 411) GLUCOSE-STAT [id number] 08:13:37 Test Item Value Reference Range Interpretation Comments GLUCOSE RANDOM (BEAKER) (test code 119 mg/dL 70-110 H = 652) BLOOD GAS, [id number] 08:13:36 Test Item Value Reference Range Interpretation Comments PH ARTERIAL (BEAKER) (test code = 7.48 7.35-7.45 H 383) PCO2 ARTERIAL (BEAKER) (test code 27 mm Hg 35-45 L = 384) PO2 ARTERIAL (BEAKER) (test code 366 mm Hg 80-90 H = 385) O2 SATURATION ARTERIAL (BEAKER) 99.8 % 96.0-97.0 H (test code = 386) HCO3 ARTERIAL (BEAKER) (test code 19 mmol/L 21-29 L = 388) BASE EXCESS ARTERIAL (BEAKER) -3.2 mmol/L -2.0-3.0 L (test code = 387) PATIENT TEMPERATURE (BEAKER) 36.0 (test code = 1818) FIO2 (BEAKER) (test code = 1819) 100.0 POTASSIUM-STAT [id number] 08:05:37 Test Item Value Reference Range Interpretation Comments POTASSIUM (BEAKER) (test code = 4.2 meq/L 3.6-5.5 379) [id number] 02:23:53 Test Item Value Reference Range Interpretation Comments PARTIAL THROMBOPLASTIN TIME 27.0 seconds 22.5-36.0 (BEAKER) (test code = 760) PROTHROMBIN [id number] 02:23:10 Test Item Value Reference Range Interpretation Comments PROTIME (BEAKER) 14.4 seconds 11.9-14.2 H (test code = 759) INR (BEAKER) (test 1.14 See_Comment [Automat ed message] code = 370) The system [employer] generated this result transmitted ref erence range: <=5.90. The reference range was not used to int erpret this result as normal/abnormal . RECOMMENDED COUMADIN/WARFARIN INR THERAPY RANGESSTANDARD DOSE: 2.0 - 3.0 Includes: PROPHYLAXIS forvenous thrombosis, systemic embolization; TREATMENT for venous thrombosis and/or pulmonary embolus.HIGH RISK: Target INR is 2.5-3.5 for patients with mechanical heart valves.[id number] 02:22:14 Test Item Value Reference Range Interpretation Comments MAGNESIUM (BEAKER) (test code = 2.1 mg/dL 1.6-2.6 627) Instrument Repairer [employer] ID - DBBASIC METABOLIC [id number] 02:22:13 Test Item Value Reference Range Interpretation Comments SODIUM (BEAKER) 132 meq/L 136-145 L (test code = 381) POTASSIUM (BEAKER) 4.4 meq/L 3.5-5.1 (test code = 379) CHLORIDE (BEAKER) 105 meq/L 98-107 (test code = 382) CO2 (BEAKER) (test 19 meq/L 22-29 L code = 355) BLOOD UREA NITROGEN 27 mg/dL 7-21 H (BEAKER) (test code = 354) CREATININE (BEAKER) 0.82 mg/dL 0.57-1.25 (test code = 358) GLUCOSE RANDOM 144 mg/dL 70-105 H (BEAKER) (test code = 652) CALCIUM (BEAKER) 8.2 mg/dL 8.4-10.2 L (test code = 697) EGFR (BEAKER) (test 94 mL/min/1.73 ESTIMA SHIVAM GFR IS code = 1092) sq m NOT ACCURATE CREATININE CLEARANCE IN PREDICTING GLOMERULAR FILTRATION RATE . ESTIMATED GFR I S NOT APPLICABLE FOR DIALYSIS PATIEN TS. Instrument Repairer [employer] ID - [id number] (HEMOGRAM ONLY)[id number] 01:55:12 Test Item Value Reference Range Interpretation Comments WHITE BLOOD CELL COUNT (BEAKER) 13.9 K/ L 3.5-10.5 H (test code = 775) RED BLOOD CELL COUNT (BEAKER) 4.35 M/ L 4.63-6.08 L (test code = 761) HEMOGLOBIN (BEAKER) (test code = 12.2 GM/DL 13.7-17.5 L 410) HEMATOCRIT (BEAKER) (test code = 38.5 % 40.1-51.0 L 411) MEAN CORPUSCULAR VOLUME (BEAKER) 88.5 fL 79.0-92.2 (test code = 753) MEAN CORPUSCULAR HEMOGLOBIN 28.0 pg 25.7-32.2 (BEAKER) (test code = 751) MEAN CORPUSCULAR HEMOGLOBIN CONC 31.7 GM/DL 32.3-36.5 L (BEAKER) (test code = 752) RED CELL DISTRIBUTION WIDTH 13.3 % 11.6-14.4 (BEAKER) (test code = 412) PLATELET COUNT (BEAKER) (test 206 K/CU MM 150-450 code = 756) MEAN PLATELET VOLUME (BEAKER) 10.6 fL 9.4-12.4 (test code = 754) NUCLEATED RED BLOOD CELLS 0 /100 WBC 0-0 (BEAKER) (test code = 413) POCT-GLUCOSE [id number] 21:44:59 Test Item Value Reference Range Interpretation Comments POC-GLUCOSE METER 137 mg/dL 70-110 H : TESTED Mikaela Patricia [facility] [address] (BEAKER) (test code = [place], [address]38) [id number]: Instrument Repairer Steam Plant/Techni hien ID = [id number] for Estephania triniizzy Wyattnaeem POCT-GLUCOSE [id number] 16:53:17 Test Item Value Reference Range Interpretation Comments POC-GLUCOSE METER 153 mg/dL 70-110 H : TESTED A T [facility] [address] (BEAKER) (test code = [place], [address]38) [id number]: Instrument Repairer Steam Plant/Techni hien ID = [id number] for Re Mahsa mora LIPID [id number] 11:17:37 Test Item Value Reference Range Interpretation Comments TRIGLYCERIDES (BEAKER) (test code = 67 mg/dL 540) CHOLESTEROL (BEAKER) (test code = 180 mg/dL 631) HDL CHOLESTEROL (BEAKER) (test code 40 mg/dL = 976) LDL CHOLESTEROL CALCULATED (BEAKER) 127 mg/dL (test code = 633) Triglyceride Reference Range: Low Risk <150 Borderline 150-199 High Risk 200-499 Very High Risk >=500Cholesterol Reference Range: Low Risk <200 Borderline 200-239 High Risk >240HDL Cholesterol Reference Range: Low Risk >=60 High Risk <40LDL Cholesterol Reference Range: Optimal <100 Near Optimal 100-129 Borderline 130-159 High 160-189 Very High >=190 Instrument Repairer [employer] ID - DBCOMPREHENSIVE METABOLIC [id number] 11:17:36 Test Item Value Reference Range Interpretation Comments TOTAL PROTEIN 6.2 gm/dL 6.0-8.3 (BEAKER) (test code = 770) ALBUMIN (BEAKER) 3.4 g/dL 3.5-5.0 L (test code = 1145) ALKALINE PHOSPHATASE 122 U/L 40-150 (BEAKER) (test code = 346) BILIRUBIN TOTAL 0.7 mg/dL 0.2-1.2 (BEAKER) (test code = 377) SODIUM (BEAKER) (test 134 meq/L 136-145 L code = 381) POTASSIUM (BEAKER) 4.7 meq/L 3.5-5.1 (test code = 379) CHLORIDE (BEAKER) 105 meq/L 98-107 (test code = 382) CO2 (BEAKER) (test 19 meq/L 22-29 L code = 355) BLOOD UREA NITROGEN 24 mg/dL 7-21 H (BEAKER) (test code = 354) CREATININE (BEAKER) 0.83 mg/dL 0.57-1.25 (test code = 358) GLUCOSE RANDOM 113 mg/dL 70-105 H (BEAKER) (test code = 652) CALCIUM (BEAKER) 8.5 mg/dL 8.4-10.2 (test code = 697) AST (SGOT) (BEAKER) 28 U/L 5-34 (test code = 353) ALT (SGPT) (BEAKER) 44 U/L 6-55 (test code = 347) EGFR (BEAKER) (test 92 mL/min/1.73 ESTIMA SHIVAM GFR IS code = 1092) sq m NOT ACCURATE CREATININE CLEARANCE IN PREDICTING GLOMERULAR FILTRATION RATE . ESTIMATED GFR I S NOT APPLICABLE FOR DIALYSIS PATIEN TS. Instrument Repairer [employer] ID - DBPOCT-GLUCOSE [id number] 11:06:28 Test Item Value Reference Range Interpretation Comments POC-GLUCOSE METER 125 mg/dL 70-110 H : TESTED A T [facility] [address] (BEAKER) (test code = [place], [address]38) [address]: Instrument Repairer Steam Plant/Techni hien ID = [id number] for Re yes, Mahsa CBC W/PLT COUNT & AUTO [id number] 08:52:55 Test Item Value Reference Range Interpretation Comments WHITE BLOOD CELL COUNT (BEAKER) 15.5 K/ L 3.5-10.5 H (test code = 775) RED BLOOD CELL COUNT (BEAKER) 4.75 M/ L 4.63-6.08 (test code = 761) HEMOGLOBIN (BEAKER) (test code = 13.3 GM/DL 13.7-17.5 L 410) HEMATOCRIT (BEAKER) (test code = 40.6 % 40.1-51.0 411) MEAN CORPUSCULAR VOLUME (BEAKER) 85.5 fL 79.0-92.2 (test code = 753) MEAN CORPUSCULAR HEMOGLOBIN 28.0 pg 25.7-32.2 (BEAKER) (test code = 751) MEAN CORPUSCULAR HEMOGLOBIN CONC 32.8 GM/DL 32.3-36.5 (BEAKER) (test code = 752) RED CELL DISTRIBUTION WIDTH 13.4 % 11.6-14.4 (BEAKER) (test code = 412) PLATELET COUNT (BEAKER) (test 231 K/CU MM 150-450 code = 756) MEAN PLATELET VOLUME (BEAKER) 11.3 fL 9.4-12.4 (test code = 754) NUCLEATED RED BLOOD CELLS 0 /100 WBC 0-0 (BEAKER) (test code = 413) NEUTROPHILS RELATIVE PERCENT 75 % (BEAKER) (test code = 429) LYMPHOCYTES RELATIVE PERCENT 15 % (BEAKER) (test code = 430) MONOCYTES RELATIVE PERCENT 9 % (BEAKER) (test code = 431) EOSINOPHILS RELATIVE PERCENT 1 % (BEAKER) (test code = 432) BASOPHILS RELATIVE PERCENT 0 % (BEAKER) (test code = 437) NEUTROPHILS ABSOLUTE COUNT 11.60 K/ L 1.78-5.38 H (BEAKER) (test code = 670) LYMPHOCYTES ABSOLUTE COUNT 2.31 K/ L 1.32-3.57 (BEAKER) (test code = 414) MONOCYTES ABSOLUTE COUNT (BEAKER) 1.35 K/ L 0.30-0.82 H (test code = 415) EOSINOPHILS ABSOLUTE COUNT 0.18 K/ L 0.04-0.54 (BEAKER) (test code = 416) BASOPHILS ABSOLUTE COUNT (BEAKER) 0.03 K/ L 0.01-0.08 (test code = 417) IMMATURE GRANULOCYTES-RELATIVE 1 % 0-1 PERCENT (BEAKER) (test code = 2801) POCT-GLUCOSE [id number] 07:22:12 Test Item Value Reference Range Interpretation Comments POC-GLUCOSE METER 104 mg/dL 70-110 : [facility] (BEAKER) (test code = [place], [address]) [address]: Instrument Repairer Steam Plant/Techni hien ID = [id number] for Re yes, Mahsa [id number] 07:00:59 Test Item Value Reference Range Interpretation Comments MAGNESIUM (BEAKER) (test code = 2.2 mg/dL 1.6-2.6 627) Instrument Repairer Steam Plant ID - DBBASIC METABOLIC [id number] 07:00:58 Test Item Value Reference Range Interpretation Comments SODIUM (BEAKER) 133 meq/L 136-145 L (test code = 381) POTASSIUM (BEAKER) 4.6 meq/L 3.5-5.1 (test code = 379) CHLORIDE (BEAKER) 105 meq/L 98-107 (test code = 382) CO2 (BEAKER) (test 21 meq/L 22-29 L code = 355) BLOOD UREA NITROGEN 23 mg/dL 7-21 H (BEAKER) (test code = 354) CREATININE (BEAKER) 0.80 mg/dL 0.57-1.25 (test code = 358) GLUCOSE RANDOM 115 mg/dL 70-105 H (BEAKER) (test code = 652) CALCIUM (BEAKER) 8.5 mg/dL 8.4-10.2 (test code = 697) EGFR (BEAKER) (test 96 mL/min/1.73 ESTIMA SHIVAM GFR IS code = 1092) sq m NOT ACCURATE CREATININE CLEARANCE IN PREDICTING GLOMERULAR FILTRATION RATE . ESTIMATED GFR I S NOT APPLICABLE FOR DIALYSIS PATIEN TS. Instrument Repairer Steam Plant ID - [id number] (HEMOGRAM ONLY)2021-09-30 06:27:19 Test Item Value Reference Range Interpretation Comments WHITE BLOOD CELL COUNT (BEAKER) 15.4 K/ L 3.5-10.5 H (test code = 775) RED BLOOD CELL COUNT (BEAKER) 4.75 M/ L 4.63-6.08 (test code = 761) HEMOGLOBIN (BEAKER) (test code = 13.5 GM/DL 13.7-17.5 L 410) HEMATOCRIT (BEAKER) (test code = 40.3 % 40.1-51.0 411) MEAN CORPUSCULAR VOLUME (BEAKER) 84.8 fL 79.0-92.2 (test code = 753) MEAN CORPUSCULAR HEMOGLOBIN 28.4 pg 25.7-32.2 (BEAKER) (test code = 751) MEAN CORPUSCULAR HEMOGLOBIN CONC 33.5 GM/DL 32.3-36.5 (BEAKER) (test code = 752) RED CELL DISTRIBUTION WIDTH 13.2 % 11.6-14.4 (BEAKER) (test code = 412) PLATELET COUNT (BEAKER) (test 225 K/CU MM 150-450 code = 756) MEAN PLATELET VOLUME (BEAKER) 10.7 fL 9.4-12.4 (test code = 754) NUCLEATED RED BLOOD CELLS 0 /100 WBC 0-0 (BEAKER) (test code = 413) POCT-GLUCOSE [id number] 23:29:14 Test Item Value Reference Range Interpretation Comments POC-GLUCOSE METER 156 mg/dL 70-110 H : TESTED A T [facility] 6720 (BEAKER) (test code = [facility], 1538) 72409: Instrument Repairer Steam Plant/Techni hien ID = [id number] for RE ROSANNA BELLAMY POCT-GLUCOSE [id number] 16:22:44 Test Item Value Reference Range Interpretation Comments POC-GLUCOSE METER 159 mg/dL 70-110 H : TESTED A T [facility] 6720 (BEAKER) (test code = [facility], 1538) 85298: Instrument Repairer Steam Plant/Techni hien ID = [id number] for Re yes, Mahsa POCT-GLUCOSE [id number] 11:38:23 Test Item Value Reference Range Interpretation Comments POC-GLUCOSE METER 166 mg/dL 70-110 H : TESTED A T [facility] 6720 (BEAKER) (test code = [facility], 1538) 34850: Instrument Repairer Steam Plant/Techni hien ID = [id number] for Re yes, Mahsa POCT-GLUCOSE [id number] 07:28:01 Test Item Value Reference Range Interpretation Comments POC-GLUCOSE METER 115 mg/dL 70-110 H : TESTED A T [facility] 6720 (BEAKER) (test code = [facility], 1538) 50588: Instrument Repairer Steam Plant/Techni hien ID = [id number] for Re yes, Mahsa BASIC METABOLIC [id number] 06:12:14 Test Item Value Reference Range Interpretation Comments SODIUM (BEAKER) 132 meq/L 136-145 L (test code = 381) POTASSIUM (BEAKER) 4.7 meq/L 3.5-5.1 (test code = 379) CHLORIDE (BEAKER) 102 meq/L 98-107 (test code = 382) CO2 (BEAKER) (test 21 meq/L 22-29 L code = 355) BLOOD UREA NITROGEN 23 mg/dL 7-21 H (BEAKER) (test code = 354) CREATININE (BEAKER) 0.85 mg/dL 0.57-1.25 (test code = 358) GLUCOSE RANDOM 113 mg/dL 70-105 H (BEAKER) (test code = 652) CALCIUM (BEAKER) 8.5 mg/dL 8.4-10.2 (test code = 697) EGFR (BEAKER) (test 90 mL/min/1.73 ESTIMA SHIVAM GFR IS code = 1092) sq m NOT ACCURATE CREATININE CLEARANCE IN PREDICTING GLOMERULAR FILTRATION RATE . ESTIMATED GFR I S NOT APPLICABLE FOR DIALYSIS PATIEN TS. Instrument Repairer Steam Plant ID - YOMI [id number] 06:12:14 Test Item Value Reference Range Interpretation Comments MAGNESIUM (BEAKER) (test code = 2.3 mg/dL 1.6-2.6 627) Instrument Repairer Steam Plant ID - YOMI MCBC (HEMOGRAM ONLY)2021-09-29 05:48:05 Test Item Value Reference Range Interpretation Comments WHITE BLOOD CELL COUNT (BEAKER) 19.4 K/ L 3.5-10.5 H (test code = 775) RED BLOOD CELL COUNT (BEAKER) 5.17 M/ L 4.63-6.08 (test code = 761) HEMOGLOBIN (BEAKER) (test code = 14.4 GM/DL 13.7-17.5 410) HEMATOCRIT (BEAKER) (test code = 43.1 % 40.1-51.0 411) MEAN CORPUSCULAR VOLUME (BEAKER) 83.4 fL 79.0-92.2 (test code = 753) MEAN CORPUSCULAR HEMOGLOBIN 27.9 pg 25.7-32.2 (BEAKER) (test code = 751) MEAN CORPUSCULAR HEMOGLOBIN CONC 33.4 GM/DL 32.3-36.5 (BEAKER) (test code = 752) RED CELL DISTRIBUTION WIDTH 13.3 % 11.6-14.4 (BEAKER) (test code = 412) PLATELET COUNT (BEAKER) (test 245 K/CU MM 150-450 code = 756) MEAN PLATELET VOLUME (BEAKER) 10.9 fL 9.4-12.4 (test code = 754) NUCLEATED RED BLOOD CELLS 0 /100 WBC 0-0 (BEAKER) (test code = 413) POCT-GLUCOSE [id number] 21:35:44 Test Item Value Reference Range Interpretation Comments POC-GLUCOSE METER 142 mg/dL 70-110 H : TESTED A T [facility] 6720 (BEAKER) (test code = [facility] [place], 1538) 20477: Instrument Repairer Steam Plant/Techni hien ID = [id number] for TOMMY KRISHNA POCT-GLUCOSE [id number] 16:44:53 Test Item Value Reference Range Interpretation Comments POC-GLUCOSE METER 132 mg/dL 70-110 H : TESTED A T [facility] 6720 (MIKAEL) (test code = [facility] [place], 1538) 11701: Instrument Repairer Steam Plant/Techni hien ID = [id number] for Re yes, Mahsa SARS-COV2/RT-PCR ([facility])2021-09-28 12:12:40 Test Item Value Reference Range Interpretation Comments SARS-COV2/RT-PCR (test Negative Not Detected, Negative, code = 1484678) See external report for linked test SARS-COV-2 PERFORMING LAB [facility] HUE (test code = 2589744) Negative result for this test determines that SARS-CoV-2 RNA was not present in the specimen above the Limit of Detection (LOD). However, Negative results do not preclude SARS-CoV-2 infection and should not be used as the sole basis for treatment or patient management decisions. Negative results mustbe combined with clinical observations, patient history, and epidemiological information. A false negative result may occur if a specimen is improperly collected, transported or handled. A false negative result should be considered if patient's recent exposures or clinical presentation indicate that COVID-19 (SARS-CoV-2) is likely and diagnostic tests for other causes of illness are negative. Re-testing should be considered in cases of suspected false negatives.The limit of detection for this assay is 800 copies/mL.This SARS CoV-2 test is a real-time RT-PCR test intended for the qualitative detection of nucleic acid from SARS-CoV-2 in a nasopharyngeal swab specimen collected from individuals susp ected of COVID-19 by their healthcare provider.This test has not been Food and Drug Administration (FDA) cleared or approved. This is a modified version of an approved Emergency Use Authorization (EUA) and is in the process of review by the FDA. Once authorized by the FDA, the issued EUA will be effective until the declaration that circumstances exist justifying the authorization of the emergency use of in vitro diagnostic tests for detection and/or diagnosis of COVID-19 is terminated under Section 564(b)(2) of the Act or the EUA is revoked under Section 564(g) of the Act.Fact Sheet for Healthcare Providers:https://www.[employer]Mine/sites/default/files/product/documents/Fact_Shee j_HQ_Almekantv_Zbxe_LREK-NhQ-4.pdfFact Sheet for Healthcare Patients:https://www.[employer]ine/sites/default/files/product/ documents/Ugko_Gicpg_Ocqieuac_Jncr_ABMP-EiL-7.pdfPerforming Laboratory:[facility], [place] [id number] METER 2021-09-28 11:35:57 Test Item Value Reference Range Interpretation Comments POC-GLUCOSE METER 121 mg/dL 70-110 H : TESTED A T [facility] 6720 (BEAKER) (test code = [facility], 1538) 76911: Instrument Repairer Steam Plant/Techni hien ID = [id number] for JEFFERY VILLANUEVA POCT-GLUCOSE [id number] 08:05:13 Test Item Value Reference Range Interpretation Comments POC-GLUCOSE METER 158 mg/dL 70-110 H : TESTED A T [facility] 6720 (BEAKER) (test code = [facility] [employer] [facility], 1538) 30581: Instrument Repairer Steam Plant/Techni hien ID = [id number] for JEFFERY VILLANUEVA [id number] 06:06:15 Test Item Value Reference Range Interpretation Comments MAGNESIUM (BEAKER) (test code = 2.1 mg/dL 1.6-2.6 627) Instrument Repairer Steam Plant ID - DESIREE WBASIC METABOLIC [id number] 06:06:14 Test Item Value Reference Range Interpretation Comments SODIUM (BEAKER) 133 meq/L 136-145 L (test code = 381) POTASSIUM (BEAKER) 4.8 meq/L 3.5-5.1 (test code = 379) CHLORIDE (BEAKER) 104 meq/L 98-107 (test code = 382) CO2 (BEAKER) (test 19 meq/L 22-29 L code = 355) BLOOD UREA NITROGEN 27 mg/dL 7-21 H (BEAKER) (test code = 354) CREATININE (BEAKER) 0.92 mg/dL 0.57-1.25 (test code = 358) GLUCOSE RANDOM 122 mg/dL 70-105 H (BEAKER) (test code = 652) CALCIUM (BEAKER) 8.7 mg/dL 8.4-10.2 (test code = 697) EGFR (BEAKER) (test 82 mL/min/1.73 ESTIMA SHIVAM GFR IS code = 1092) sq m NOT ACCURATE CREATININE CLEARANCE IN PREDICTING GLOMERULAR FILTRATION RATE . ESTIMATED GFR I S NOT APPLICABLE FOR DIALYSIS PATIEN TS. Instrument Repairer Steam Plant ID - DESIREE [facility] (HEMOGRAM ONLY)2021-09-28 05:33:19 Test Item Value Reference Range Interpretation Comments WHITE BLOOD CELL COUNT (BEAKER) 18.4 K/ L 3.5-10.5 H (test code = 775) RED BLOOD CELL COUNT (BEAKER) 5.26 M/ L 4.63-6.08 (test code = 761) HEMOGLOBIN (BEAKER) (test code = 14.7 GM/DL 13.7-17.5 410) HEMATOCRIT (BEAKER) (test code = 44.1 % 40.1-51.0 411) MEAN CORPUSCULAR VOLUME (BEAKER) 83.8 fL 79.0-92.2 (test code = 753) MEAN CORPUSCULAR HEMOGLOBIN 27.9 pg 25.7-32.2 (BEAKER) (test code = 751) MEAN CORPUSCULAR HEMOGLOBIN CONC 33.3 GM/DL 32.3-36.5 (BEAKER) (test code = 752) RED CELL DISTRIBUTION WIDTH 13.3 % 11.6-14.4 (BEAKER) (test code = 412) PLATELET COUNT (BEAKER) (test 248 K/CU MM 150-450 code = 756) MEAN PLATELET VOLUME (BEAKER) 10.9 fL 9.4-12.4 (test code = 754) NUCLEATED RED BLOOD CELLS 0 /100 WBC 0-0 (BEAKER) (test code = 413) POCT-GLUCOSE [id number] 21:06:35 Test Item Value Reference Range Interpretation Comments POC-GLUCOSE METER 173 mg/dL 70-110 H : TESTED A T [facility] 6720 (BEAKER) ([facility] = [facility] [employer] [facility], 1538) 18193: Instrument Repairer Steam Plant/Techni hien ID = [id number] for TOMMY KRISHNA POCT-GLUCOSE [id number] 17:00:19 Test Item Value Reference Range Interpretation Comments POC-GLUCOSE METER 232 mg/dL 70-110 H : TESTED A T [facility] 6720 (BEAKER) (test code = [facility] [employer] [facility], 1538) 31335: Instrument Repairer Steam Plant/Techni hien ID = [id number] for Max [place] POCT-GLUCOSE [id number] 11:28:53 Test Item Value Reference Range Interpretation Comments POC-GLUCOSE METER 110 mg/dL 70-110 : TESTED A T [facility] 6720 (BEAKER) (test code = [facility], 1538) 28709: Instrument Repairer Steam Plant/Techni hien ID = [id number] for Max [place] POCT-GLUCOSE [id number] 08:27:37 Test Item Value Reference Range Interpretation Comments POC-GLUCOSE METER 244 mg/dL 70-110 H : TESTED A T [facility] 6720 (BEAKER) (test code = [facility], 1538) 77754: Instrument Repairer Steam Plant/Techni hien ID = [id number] for Max [place] [id number] 06:18:22 Test Item Value Reference Range Interpretation Comments MAGNESIUM (BEAKER) (test code = 2.2 mg/dL 1.6-2.6 627) Instrument Repairer Steam Plant ID - YOMI MBASIC METABOLIC [id number] 06:18:21 Test Item Value Reference Range Interpretation Comments SODIUM (BEAKER) 132 meq/L 136-145 L (test code = 381) POTASSIUM (BEAKER) 4.7 meq/L 3.5-5.1 (test code = 379) CHLORIDE (BEAKER) 103 meq/L 98-107 (test code = 382) CO2 (BEAKER) (test 20 meq/L 22-29 L code = 355) BLOOD UREA NITROGEN 26 mg/dL 7-21 H (BEAKER) (test code = 354) CREATININE (BEAKER) 0.94 mg/dL 0.57-1.25 (test code = 358) GLUCOSE RANDOM 137 mg/dL 70-105 H (BEAKER) (test code = 652) CALCIUM (BEAKER) 8.7 mg/dL 8.4-10.2 (test code = 697) EGFR (BEAKER) (test 80 mL/min/1.73 ESTIMA SHIVAM GFR IS code = 1092) sq m NOT ACCURATE CREATININE CLEARANCE IN PREDICTING GLOMERULAR FILTRATION RATE . ESTIMATED GFR I S NOT APPLICABLE FOR DIALYSIS PATIEN TS. Instrument Repairer Steam Plant ID - YOMI MCBC W/PLT COUNT & AUTO [id number] 05:51:19 Test Item Value Reference Range Interpretation Comments WHITE BLOOD CELL COUNT (BEAKER) 16.1 K/ L 3.5-10.5 H (test code = 775) RED BLOOD CELL COUNT (BEAKER) 5.32 M/ L 4.63-6.08 (test code = 761) HEMOGLOBIN (BEAKER) (test code = 14.7 GM/DL 13.7-17.5 410) HEMATOCRIT (BEAKER) (test code = 44.6 % 40.1-51.0 411) MEAN CORPUSCULAR VOLUME (BEAKER) 83.8 fL 79.0-92.2 (test code = 753) MEAN CORPUSCULAR HEMOGLOBIN 27.6 pg 25.7-32.2 (BEAKER) (test code = 751) MEAN CORPUSCULAR HEMOGLOBIN CONC 33.0 GM/DL 32.3-36.5 (BEAKER) (test code = 752) RED CELL DISTRIBUTION WIDTH 13.3 % 11.6-14.4 (BEAKER) (test code = 412) PLATELET COUNT (BEAKER) (test 259 K/CU MM 150-450 code = 756) MEAN PLATELET VOLUME (BEAKER) 10.8 fL 9.4-12.4 (test code = 754) NUCLEATED RED BLOOD CELLS 0 /100 WBC 0-0 (BEAKER) (test code = 413) NEUTROPHILS RELATIVE PERCENT 79 % (BEAKER) (test code = 429) LYMPHOCYTES RELATIVE PERCENT 13 % (BEAKER) (test code = 430) MONOCYTES RELATIVE PERCENT 7 % (BEAKER) (test code = 431) EOSINOPHILS RELATIVE PERCENT 0 % (BEAKER) (test code = 432) BASOPHILS RELATIVE PERCENT 0 % (BEAKER) (test code = 437) NEUTROPHILS ABSOLUTE COUNT 12.70 K/ L 1.78-5.38 H (BEAKER) (test code = 670) LYMPHOCYTES ABSOLUTE COUNT 2.05 K/ L 1.32-3.57 (BEAKER) (test code = 414) MONOCYTES ABSOLUTE COUNT (BEAKER) 1.16 K/ L 0.30-0.82 H (test code = 415) EOSINOPHILS ABSOLUTE COUNT 0.05 K/ L 0.04-0.54 (BEAKER) (test code = 416) BASOPHILS ABSOLUTE COUNT (BEAKER) 0.03 K/ L 0.01-0.08 (test code = 417) IMMATURE GRANULOCYTES-RELATIVE 1 % 0-1 PERCENT (BEAKER) (test code = 2801) POCT-GLUCOSE [id number] 21:32:16 Test Item Value Reference Range Interpretation Comments POC-GLUCOSE METER 149 mg/dL 70-110 H : TESTED A T [facility] 6720 (BEAKER) (test code = [facility], 1538) 18010: Instrument Repairer Steam Plant/Techni hien ID = [id number] for TOMMY KRISHNA POCT-GLUCOSE [id number] 16:38:02 Test Item Value Reference Range Interpretation Comments POC-GLUCOSE METER 163 mg/dL 70-110 H : TESTED A T [facility] 6720 (BEAKER) (test code = [facility], 1538) 52622: Instrument Repairer Steam Plant/Techni hien ID = [id number] for TATIANA MEJIA POCT-GLUCOSE [id number] 12:15:17 Test Item Value Reference Range Interpretation Comments POC-GLUCOSE METER 214 mg/dL 70-110 H : TESTED A T [facility] 6720 (BEAKER) (test code = [facility], 1538) 77088: Instrument Repairer Steam Plant/Techni hien ID = [id number] for EMILY MEJIAIA POCT-GLUCOSE [id number] 07:37:30 Test Item Value Reference Range Interpretation Comments POC-GLUCOSE METER 108 mg/dL 70-110 : TESTED A T [facility] 6720 (BEAKER) (test code = [facility], 1538) 37027: Instrument Repairer Steam Plant/Techni hien ID = [id number] for TATIANA MEJIA [id number] 05:22:24 Test Item Value Reference Range Interpretation Comments MAGNESIUM (BEAKER) (test code = 2.2 mg/dL 1.6-2.6 627) Instrument Repairer Steam Plant ID - YOMI MBASIC METABOLIC [id number] 05:22:22 Test Item Value Reference Range Interpretation Comments SODIUM (BEAKER) 134 meq/L 136-145 L (test code = 381) POTASSIUM (BEAKER) 5.0 meq/L 3.5-5.1 (test code = 379) CHLORIDE (BEAKER) 104 meq/L 98-107 (test code = 382) CO2 (BEAKER) (test 19 meq/L 22-29 L code = 355) BLOOD UREA NITROGEN 26 mg/dL 7-21 H (BEAKER) (test code = 354) CREATININE (BEAKER) 0.92 mg/dL 0.57-1.25 (test code = 358) GLUCOSE RANDOM 141 mg/dL 70-105 H (BEAKER) (test code = 652) CALCIUM (BEAKER) 9.0 mg/dL 8.4-10.2 (test code = 697) EGFR (BEAKER) (test 82 mL/min/1.73 ESTIMA SHIVAM GFR IS code = 1092) sq m NOT ACCURATE CREATININE CLEARANCE IN PREDICTING GLOMERULAR FILTRATION RATE . ESTIMATED GFR I S NOT APPLICABLE FOR DIALYSIS PATIEN TS. Instrument Repairer Steam Plant ID - YOMI [id number] 05:19:52 Test Item Value Reference Range Interpretation Comments PARTIAL THROMBOPLASTIN TIME 98.5 seconds 22.5-36.0 H (BEAKER) (test code = 760) CBC (HEMOGRAM ONLY)2021-09-26 05:09:02 Test Item Value Reference Range Interpretation Comments WHITE BLOOD CELL COUNT (BEAKER) 19.2 K/ L 3.5-10.5 H (test code = 775) RED BLOOD CELL COUNT (BEAKER) 5.39 M/ L 4.63-6.08 (test code = 761) HEMOGLOBIN (BEAKER) (test code = 15.0 GM/DL 13.7-17.5 410) HEMATOCRIT (BEAKER) (test code = 45.6 % 40.1-51.0 411) MEAN CORPUSCULAR VOLUME (BEAKER) 84.6 fL 79.0-92.2 (test code = 753) MEAN CORPUSCULAR HEMOGLOBIN 27.8 pg 25.7-32.2 (BEAKER) (test code = 751) MEAN CORPUSCULAR HEMOGLOBIN CONC 32.9 GM/DL 32.3-36.5 (BEAKER) (test code = 752) RED CELL DISTRIBUTION WIDTH 13.4 % 11.6-14.4 (BEAKER) (test code = 412) PLATELET COUNT (BEAKER) (test 234 K/CU MM 150-450 code = 756) MEAN PLATELET VOLUME (BEAKER) 11.1 fL 9.4-12.4 (test code = 754) NUCLEATED RED BLOOD CELLS 0 /100 WBC 0-0 (BEAKER) (test code = 413) [id number] 22:51:50 Test Item Value Reference Range Interpretation Comments PARTIAL THROMBOPLASTIN TIME 73.4 seconds 22.5-36.0 H (BEAKER) (test code = 760) POCT-GLUCOSE [id number] 21:29:21 Test Item Value Reference Range Interpretation Comments POC-GLUCOSE METER 119 mg/dL 70-110 H : TESTED A T [facility] 6720 (BEAKER) (test code = [facility] [employer] [facility], 1538) 47520: Instrument Repairer Steam Plant/Techni hien ID = [id number] for Magdalena danielson (contract), Via [employer] POCT-GLUCOSE [id number] 16:39:53 Test Item Value Reference Range Interpretation Comments POC-GLUCOSE METER 138 mg/dL 70-110 H : TESTED A T [facility] 6720 (BEAKER) (test code = [employer] [facility], 1538) 11120: Instrument Repairer Steam Plant/Techni hien ID = [id number] for BETZAIDA HECTOR, TATIANA PLATELET AGGREGATION: FUNCTION [id number] 16:21:14 Test Item Value Reference Range Interpretation Comments [id number] Darby Escobedo MD (BEAKER) (test code = (electronic signature) 0368) PLATELET COUNT AGG 246 K/CU MM 150-450 (BEAKER) (test code = 2656) ADP (BEAKER) (test code 12 % 62-100 L = 4654) PLATELET RICH 215 k/cu mm 200-300 PLASMA(BEAKER) (test code = 2134) PLATELET FUNCTION Pattern of SCREEN INTERPRETATION disaggregation present (BEAKER) (test code = with ADP which may be 4655) characteristic of P2Y12 inhibitor effect. Correlation with medication history is required. Platelet Function Screen results may be falsely low with platelet counts<75,000/cu mm.Instrument Repairer Steam Plant ID- [id number] 14:25:04 Test Item Value Reference Range Interpretation Comments PARTIAL THROMBOPLASTIN TIME 60.0 seconds 22.5-36.0 H (BEAKER) (test code = 760) POCT-GLUCOSE [id number] 11:30:50 Test Item Value Reference Range Interpretation Comments POC-GLUCOSE METER 127 mg/dL 70-110 H : TESTED A T [facility] 6720 (BEAKER) (test code = [facility] [employer] [place], 1538) 42621: Instrument Repairer Steam Plant/Techni hien ID = [id number] for TATIANA MEJIA POCT-GLUCOSE [id number] 07:37:38 Test Item Value Reference Range Interpretation Comments POC-GLUCOSE METER 124 mg/dL 70-110 H : TESTED A T [facility] 6720 (BEAKER) (test code = [facility] [place], 1538) 58586: Instrument Repairer Steam Plant/Techni hien ID = [id number] for TATIANA MEJIA [employer] [id number] 05:44:53 Test Item Value Reference Range Interpretation Comments SODIUM (BEAKER) 132 meq/L 136-145 L (test code = 381) POTASSIUM (BEAKER) 5.2 meq/L 3.5-5.1 H Specimen slightly (test code = 379) hemolyzed CHLORIDE (BEAKER) 103 meq/L 98-107 (test code = 382) CO2 (BEAKER) (test 19 meq/L 22-29 L code = 355) BLOOD UREA NITROGEN 23 mg/dL 7-21 H (BEAKER) (test code = 354) CREATININE (BEAKER) 0.86 mg/dL 0.57-1.25 Specimen slightly (test code = 358) hemolyzed GLUCOSE RANDOM 139 mg/dL 70-105 H (BEAKER) (test code = 652) CALCIUM (BEAKER) 8.8 mg/dL 8.4-10.2 (test code = 697) EGFR (BEAKER) (test 89 mL/min/1.73 ESTIMA SHIVAM GFR IS code = 1092) sq m NOT ACCURATE CREATININE CLEARANCE IN PREDICTING GLOMERULAR FILTRATION RATE . ESTIMATED GFR I S NOT APPLICABLE FOR DIALYSIS PATIEN TS. Instrument Repairer Steam Plant ID - YOMI [id number] 05:44:52 Test Item Value Reference Range Interpretation Comments MAGNESIUM (BEAKER) 2.2 mg/dL 1.6-2.6 Specimen slightly (test code = 627) hemolyzed Instrument Repairer Steam Plant ID - YOMI [id number] 05:26:27 Test Item Value Reference Range Interpretation Comments PARTIAL THROMBOPLASTIN TIME 95.9 seconds 22.5-36.0 H (BEAKER) (test code = 760) CBC (HEMOGRAM ONLY)2021-09-25 05:21:24 Test Item Value Reference Range Interpretation Comments WHITE BLOOD CELL COUNT (BEAKER) 16.7 K/ L 3.5-10.5 H (test code = 775) RED BLOOD CELL COUNT (BEAKER) 5.42 M/ L 4.63-6.08 (test code = 761) HEMOGLOBIN (BEAKER) (test code = 15.2 GM/DL 13.7-17.5 410) HEMATOCRIT (BEAKER) (test code = 45.8 % 40.1-51.0 411) MEAN CORPUSCULAR VOLUME (BEAKER) 84.5 fL 79.0-92.2 (test code = 753) MEAN CORPUSCULAR HEMOGLOBIN 28.0 pg 25.7-32.2 (BEAKER) (test code = 751) MEAN CORPUSCULAR HEMOGLOBIN CONC 33.2 GM/DL 32.3-36.5 (BEAKER) (test code = 752) RED CELL DISTRIBUTION WIDTH 13.4 % 11.6-14.4 (BEAKER) (test code = 412) PLATELET COUNT (BEAKER) (test 231 K/CU MM 150-450 code = 756) MEAN PLATELET VOLUME (BEAKER) 11.1 fL 9.4-12.4 (test code = 754) NUCLEATED RED BLOOD CELLS 0 /100 WBC 0-0 (BEAKER) (test code = 413) [id number] 17:53:10 Test Item Value Reference Range Interpretation Comments PARTIAL THROMBOPLASTIN TIME 80.4 seconds 22.5-36.0 H (BEAKER) (test code = 760) POCT-GLUCOSE [id number] 16:32:13 Test Item Value Reference Range Interpretation Comments POC-GLUCOSE METER 130 mg/dL 70-110 H : TESTED A T [facility] [id number] (BEAKER) (test code = TONY No [facility], 1538) [id number]: Instrument Repairer [employer] Plant/Techni hien ID = [id number] for TATIANA MEJIA [id number] 11:10:40 Test Item Value Reference Range Interpretation Comments PARTIAL THROMBOPLASTIN TIME 49.7 seconds 22.5-36.0 H (BEAKER) (test code = 760) HEMOGLOBIN [id number] 07:43:54 Test Item Value Reference Range Interpretation Comments HEMOGLOBIN A1C (BEAKER) (test code = 6.7 % 4.3-6.1 H 368) BASIC METABOLIC [id number] 07:00:00 Test Item Value Reference Range Interpretation Comments SODIUM (BEAKER) 134 meq/L 136-145 L (test code = 381) POTASSIUM (BEAKER) 4.8 meq/L 3.5-5.1 Specimen slightly (test code = 379) hemolyzed CHLORIDE (BEAKER) 105 meq/L 98-107 (test code = 382) CO2 (BEAKER) (test 19 meq/L 22-29 L code = 355) BLOOD UREA NITROGEN 21 mg/dL 7-21 (BEAKER) (test code = 354) CREATININE (BEAKER) 0.88 mg/dL 0.57-1.25 Specimen slightly (test code = 358) hemolyzed GLUCOSE RANDOM 161 mg/dL 70-105 H (BEAKER) (test code = 652) CALCIUM (BEAKER) 8.6 mg/dL 8.4-10.2 (test code = 697) EGFR (BEAKER) (test 86 mL/min/1.73 ESTIMA SHIVAM GFR IS code = 1092) sq m NOT ACCURATE CREATININE CLEARANCE IN PREDICTING GLOMERULAR FILTRATION RATE . ESTIMATED GFR I S NOT APPLICABLE FOR DIALYSIS PATIEN TS. Instrument Repairer [employer] ID - YOMI MSpecimen slightly [id number] 06:59:59 Test Item Value Reference Range Interpretation Comments MAGNESIUM (BEAKER) 2.0 mg/dL 1.6-2.6 Specimen slightly (test code = 627) hemolyzed Instrument Repairer [employer] ID - YOMI [id number] 06:25:07 Test Item Value Reference Range Interpretation Comments PARTIAL THROMBOPLASTIN TIME 37.9 seconds 22.5-36.0 H (BEAKER) (test code = 760) CBC (HEMOGRAM ONLY)2021-09-24 06:22:11 Test Item Value Reference Range Interpretation Comments WHITE BLOOD CELL COUNT (BEAKER) 18.4 K/ L 3.5-10.5 H (test code = 775) RED BLOOD CELL COUNT (BEAKER) 5.39 M/ L 4.63-6.08 (test code = 761) HEMOGLOBIN (BEAKER) (test code = 15.1 GM/DL 13.7-17.5 410) HEMATOCRIT (BEAKER) (test code = 43.5 % 40.1-51.0 411) MEAN CORPUSCULAR VOLUME (BEAKER) 80.7 fL 79.0-92.2 (test code = 753) MEAN CORPUSCULAR HEMOGLOBIN 28.0 pg 25.7-32.2 (BEAKER) (test code = 751) MEAN CORPUSCULAR HEMOGLOBIN CONC 34.7 GM/DL 32.3-36.5 (BEAKER) (test code = 752) RED CELL DISTRIBUTION WIDTH 13.9 % 11.6-14.4 (BEAKER) (test code = 412) PLATELET COUNT (BEAKER) (test 237 K/CU MM 150-450 code = 756) MEAN PLATELET VOLUME (BEAKER) 10.7 fL 9.4-12.4 (test code = 754) NUCLEATED RED BLOOD CELLS 0 /100 WBC 0-0 (BEAKER) (test code = 413) RAD, CHEST, 1 VIEW, NON [id number] 01:18:00Reason for exam:->coughShould this be performed at the bedside?->Yes [facility] : 1955 Sex: MFINAL REPORT EXAM/TECHNIQUE: Single view frontal radiograph of the chest.INDICATION: Cough COMPARISON: None. FINDINGS: Devices/Objects: None. Lungs: No focal consolidation.No pleural effusion. No pneumothorax. Heart/Mediastinum: No cardiomegaly. No interstitial thickening. Osseous: No acute osseous process. No suspicious osseous lesion. Upper abdomen: Unremarkable. Impression: No acute cardiopulmonary process. Signed: Ron Sun MDReport Verified Date/Time: 09/24/2021 01:18:54 POCT-GLUCOSE [id number] 23:07:51 Test Item Value Reference Range Interpretation Comments POC-GLUCOSE METER 189 mg/dL 70-110 H : TESTED A T [facility] [address] (BEAKER) (test code = [place], [address]) [address]: Instrument Repairer Steam Plant/Techni hien ID = [id number] for David (student)Oni URINALYSIS W/ REFLEX URINE [id number] 18:34:31 Test Item Value Reference Range Interpretation Comments COLOR (BEAKER) (test code = 470) Yellow CLARITY (BEAKER) (test code = 469) Clear SPECIFIC GRAVITY UA (BEAKER) (test 1.043 1.001-1.035 H code = 468) PH UA (BEAKER) (test code = 467) 6.0 5.0-8.0 PROTEIN UA (BEAKER) (test code = 10 mg/dL Negative A 464) GLUCOSE UA (BEAKER) (test code = Negative Negative 365) KETONES UA (BEAKER) (test code = Negative Negative 371) BILIRUBIN UA (BEAKER) (test code = Negative Negative 462) BLOOD UA (BEAKER) (test code = 461) Negative Negative NITRITE UA (BEAKER) (test code = Negative Negative 465) LEUKOCYTE ESTERASE UA (BEAKER) Negative Negative (test code = 466) UROBILINOGEN UA (BEAKER) (test code 0.2 mg/dL 0.2-1.0 = 463) RBC UA (BEAKER) (test code = 519) 0 /HPF WBC UA (BEAKER) (test code = 520) 1 /HPF BACTERIA (BEAKER) (test code = 517) None Seen SQUAMOUS EPITHELIAL (BEAKER) (test < /HPF code = 516) CRYSTALS, URINE (BEAKER) (test code None Seen = 1521) SOURCE(BEAKER) (test code = 2795) Instrument Repairer Steam [employer] ID - [auto]Instrument Repairer Steam Plant ID - techHIGH SENSITIVITY TROPONIN [id number] 14:42:17 Test Item Value Reference Range Interpretation Comments HIGH SENSITIVITY 2005 pg/ml See_Comment HH [Automated message] TROPONIN I (test code The sy stem which = [id number]) generated this result transmitted ref erence range: <=35. Th e reference range was not used to int erpret this result as normal/abnormal . Instrument Repairer [employer] ID - YOMI MThe TRIAL MGR STAT High Sensitivity Troponin-I results should be used in conjunction with other diagnostic information such as ECG, clinical observations and information, and patient symptoms to aid in the diagnosis of OR.[id number] 14:38:38 Test Item Value Reference Range Interpretation Comments ACTIVATED CLOTTING TIME 120 sec : 74 -137 seconds, (BEAKER) (test code = Manolo ne: TESTED AT 441) [facility] [address] [place], [address]: Instrument Repairer Steam Plant/Techni hien ID = [id number] for CALLUM CARRINGTON B-TYPE NATRIURETIC FACTOR (BNP)2021-09-23 14:33:42 Test Item Value Reference Range Interpretation Comments B-TYPE NATRIURETIC PEPTIDE (BEAKER) 155 pg/mL 0-100 H (test code = 700) Instrument Repairer Steam [employer] ID - YOMI MCBC (HEMOGRAM ONLY)2021-09-23 14:31:53 Test Item Value Reference Range Interpretation Comments WHITE BLOOD CELL COUNT (BEAKER) 23.0 K/ L 3.5-10.5 H (test code = 775) RED BLOOD CELL COUNT (BEAKER) 5.84 M/ L 4.63-6.08 (test code = 761) HEMOGLOBIN (BEAKER) (test code = 16.1 GM/DL 13.7-17.5 410) HEMATOCRIT (BEAKER) (test code = 49.2 % 40.1-51.0 411) MEAN CORPUSCULAR VOLUME (BEAKER) 84.2 fL 79.0-92.2 (test code = 753) MEAN CORPUSCULAR HEMOGLOBIN 27.6 pg 25.7-32.2 (BEAKER) (test code = 751) MEAN CORPUSCULAR HEMOGLOBIN CONC 32.7 GM/DL 32.3-36.5 (BEAKER) (test code = 752) RED CELL DISTRIBUTION WIDTH 13.7 % 11.6-14.4 (BEAKER) (test code = 412) PLATELET COUNT (BEAKER) (test 297 K/CU MM 150-450 code = 756) MEAN PLATELET VOLUME (BEAKER) 10.7 fL 9.4-12.4 (test code = 754) NUCLEATED RED BLOOD CELLS 0 /100 WBC 0-0 (BEAKER) (test code = 413) COMPREHENSIVE METABOLIC [id number] 14:25:42 Test Item Value Reference Range Interpretation Comments TOTAL PROTEIN 6.8 gm/dL 6.0-8.3 (BEAKER) (test code = 770) ALBUMIN (BEAKER) 3.9 g/dL 3.5-5.0 (test code = 1145) ALKALINE PHOSPHATASE 79 U/L 40-150 (BEAKER) (test code = 346) BILIRUBIN TOTAL 0.9 mg/dL 0.2-1.2 (BEAKER) (test code = 377) SODIUM (BEAKER) (test 137 meq/L 136-145 code = 381) POTASSIUM (BEAKER) 4.6 meq/L 3.5-5.1 (test code = 379) CHLORIDE (BEAKER) 105 meq/L 98-107 (test code = 382) CO2 (BEAKER) (test 21 meq/L 22-29 L code = 355) BLOOD UREA NITROGEN 27 mg/dL 7-21 H (BEAKER) (test code = 354) CREATININE (BEAKER) 1.14 mg/dL 0.57-1.25 (test code = 358) GLUCOSE RANDOM 229 mg/dL 70-105 H (BEAKER) (test code = 652) CALCIUM (BEAKER) 8.9 mg/dL 8.4-10.2 (test code = 697) AST (SGOT) (BEAKER) 34 U/L 5-34 (test code = 353) ALT (SGPT) (BEAKER) 23 U/L 6-55 (test code = 347) EGFR (BEAKER) (test 64 mL/min/1.73 ESTIMA SHIVAM GFR IS code = 1092) sq m NOT ACCURATE CREATININE CLEARANCE IN PREDICTING GLOMERULAR FILTRATION RATE . ESTIMATED GFR I S NOT APPLICABLE FOR DIALYSIS PATIEN TS. Instrument Repairer Steam Plant ID - YOMI MLIPID [id number] 14:25:42 Test Item Value Reference Range Interpretation Comments TRIGLYCERIDES (BEAKER) (test code = 77 mg/dL 540) CHOLESTEROL (BEAKER) (test code = 236 mg/dL 631) HDL CHOLESTEROL (BEAKER) (test code 56 mg/dL = 976) LDL CHOLESTEROL CALCULATED (BEAKER) 165 mg/dL (test code = 633) Triglyceride Reference Range: Low Risk <150 Borderline 150-199 High Risk 200-499 Very High Risk >=500Cholesterol Reference Range: Low Risk <200 Borderline 200-239 High Risk >240HDL Cholesterol Reference Range: Low Risk >=60 High Risk <40LDL Cholesterol Reference Range: Optimal <100 Near Optimal 100-129 Borderline 130-159 High 160-189 Very High >=190 Instrument Repairer Steam Plant ID - YOMI MPT/[id number] 14:13:19 Test Item Value Reference Range Interpretation Comments PROTIME ([employer]) (test 14.0 seconds 11.9-14.2 code = 759) INR ([employer]) (test 1.10 See_Comment [Automat ed code = 370) message] The [employer] stem which generated this result transmitted reference range : <=5.90. The reference range was not used to interpret this result as normal/abnormal . PARTIAL THROMBOPLASTIN 65.3 seconds 22.5-36.0 H TIME (SimbionixAKER) (test code = 760) RECOMMENDED COUMADIN/WARFARIN INR THERAPY RANGESSTANDARD DOSE: 2.0 - 3.0 Includes: PROPHYLAXIS forvenous thrombosis, systemic embolization; TREATMENT for venous thrombosis and/or pulmonary embolus.HIGH RISK: Target INR is 2.5-3.5 for patients with mechanical heart valves.
--- NOTE | 2021-10-31 16:49 | ER ---
Nurse's Notes [facility] Name: Luis Meza Age: 66 yrs Sex: Male : 1955 Arrival Date: 10/31/2021 Time: 11:01 Bed Waiting Private MD: Diagnosis: Presentation: 10/31 11:07 Chief complaint: Patient states: nausea, chest pain, cough, congestion, dizziness, vg1 fatigue, shortness of breath x 2 days. Denies Vomiting and diarrhea. States chest pain radiates to Left and Right arm. Coronavirus screen: Vaccine status: Patient reports receiving the 2nd dose of the covid vaccine. Client denies travel out of the [place] in the last 14 days. Client presents with at least one sign or symptom that may indicate coronavirus-19. Standard/surgical mask placed on the client. Ebola Screen: Patient negative for fever greater than or equal to 101.5 degrees Fahrenheit, and additional compatible Ebola Virus Disease symptoms. Initial Sepsis Screen: Does the patient meet any 2 criteria? No. Patient's initial sepsis screen is negative. Does the patient have a suspected source of infection? No. Patient's initial sepsis screen is negative. Risk Assessment: Do you want to hurt yourself or someone else? Patient reports no desire to harm self or others. Onset of symptoms was October 29, 2021. 11:07 Method Of Arrival: Ambulatory vg1 11:07 Acuity: JORDEN 3 vg1 Triage Assessment: 11:10 General: Appears in no apparent distress. comfortable, Behavior is calm, cooperative. vg1 Pain: Complains of pain in anterior aspect of right upper chest, anterior aspect of left upper chest and mid-sternal area Pain radiates to right arm and left arm Pain currently is 8 out of 10 on a pain scale. Cardiovascular: Patient's skin is warm and dry. Respiratory: Reports shortness of breath cough that is. Historical: - Allergies: 11:10 No Known Allergies; vg1 - Home Meds: 11:10 Eliquis oral [Active]; atorvastatin oral [Active]; benzonatate oral [Active]; Stool vg1 Softener oral [Active]; tamsulosin oral [Active]; Metoprolol Tartrate Oral [Active]; Amiodarone Oral [Active]; aspirin 81 mg Oral tab [Active]; - PMHx: 11:10 Atrial fibrillation; PreDiabetic; vg1 - PSHx: 11:10 "prostate surgery"; Bypass-Decebmer 2020; vg1 - Immunization history:: Client reports receiving the 2nd dose of the Covid vaccine. - Social history:: Smoking status: Patient denies any tobacco usage or history of. Assessment: 16:48 Reassessment: registration stated pt left. vg1 Vital Signs: 11:07 BP 119 / 73; Pulse 72; Resp 18; Temp 97.6; Pulse Ox 100% ; Weight 76.66 kg; Height 6 vg1 ft. 0 in. (182.88 cm); Pain 8/10; 11:07 Body Mass Index 22.92 (76.66 kg, 182.88 cm) vg1 ED Course: 11:01 Patient arrived in ED. am2 11:10 Triage completed. vg1 11:10 Arm band placed on. EKG completed in triage. Results shown to MD. vg1 11:12 EKG done, by ED staff, reviewed by Jaycob Houser MD. 5 Administered Medications: No medications were administered Outcome: 16:49 Patient left the ED. vg1 Signatures: Kendra Sebastian 5 Sheryl Reilly am2 Marcia Enriquez, RN RN vg1
[2021-10-31 16:59] VITALS: BP 119/73; TEMP 97.6; O2SAT 100
== END 2021-10-31 16:49 | disposition left against medical advice (07) ==
LOC: ER 10:57
DX: R05.9 Cough, unspecified (principal); Z53.21 Procedure and treatment not carried out due to patient leaving prior to being seen by health care provider
CPT/HCPCS: 93005; 99282

== ENCOUNTER 2022-11-12 09:46 | Emergency (ER) | payer OTHER ==
--- OUTSIDE RECORDS SUMMARY | 2022-11-12 09:53 | XMS REPORT | Continuity of Care Document ---
:1955 Author Organization [facility] t Address [address] [place] [address] Care Team Providers Name Role Phone No, Pcp [facility] Primary Care Physician Unavailable ARJUN_Mikaela Attending Clinician Unavailable Lizett Rapp Attending Clinician [phone] Joanne Bertrand RN Attending Clinician CHARITY ANDERSEN Attending Clinician Unavailable NIDHI NEVAREZ V. Attending Clinician Unavailable MASSIEL RAUSCH Attending Clinician Unavailable Sia Ordonez Attending Clinician SIA ORDONEZ Attending Clinician Unavailable VISIT, MED_ASST [facility] Attending Clinician Unavailable KIN Admitting Clinician Unavailable NIDHI NEVAREZ V. Admitting Clinician Unavailable MASSIEL RAUSCH Admitting Clinician Unavailable Payers Payer Name Policy Type Policy Number Effective Date Expiration Date Cari esparza MEDICARE B-[place]: [id number] 2019 [employer] 00:00:00 [employer] (MEDICARE [id number] SUPPLEMENT) Problems Condition Condition Condition Status Onset Resolution Last Treating Co mments Source Name Details Category Date Date Treatment Clinician Date Hyperlipid Hyperlipid Problem Active S sarah emia emia 5-04 Communi 00:00: ty [facility] Anterior Anterior Problem Active [facility] chest wall Chest Wall 4-04 Co mmuni pain Pain 00:00: ty 00 [facility] Coronary Coronary Problem Active [place] atheroscle Atheroscle 2- Co mmuni rosis rosis 00:00: ty 00 [facility] Atrial Atrial Problem Active [place] fibrillati Fibrillati 2- Co mmuni on on 00:00: ty 00 [facility] Constipati Constipati Problem Active S weeny on on 12-04 Communi 00:00: ty 00 [facility] A-fib A-fib Disease Active 2020-[address] [facility] Type 2 Type 2 Disease Active 2020-[address] [facility] [address] diabetes diabetes 12-01 [facility] mellitus mellitus 00:00: Medica l 00 Center S/P ACB X S/P ACB X Disease Active 2020-[address] [facility] 4 by 4 by 12-01 [facility] Buck Buck 00:00: Medical (10/01/21) (10/01/21) 00 Ce nter CAD CAD Disease Active 2020-[address] [facility] (coronary (coronary 11-23 Luke s artery artery 00:00: Medical disease) disease) 00 Center N10.1 N10.1 Diagnosis Active 2019-112020-08-28 Me moria Active 0-16 05:48:00 l 08/18/2020 00:00: Mahendra cerrato 00 [facility] UNK UNK Diagnosis Active 2019-112020-08-25 Mem oria Active 0-16 09:12:00 l 08/18/2020 00:00: Mahendra cerrato 00 [facility] Benign Benign Problem Active 2020-12-13 Hammad martinez prostatic prostatic 22:51:51 l hyperplasi hyperplasi He rmann a a (disorder) (disorder) Active Problem 12/13/2020 [facility] Allergies, Adverse Reactions, Alerts Allergy Allergy Status Severity Reaction(s) Onset Inactive Treating Comm ents Source Name Type Date Date Clinician CHOCOLAT Allergy Active 2020-[address] [facility] [facility]LA[facility] 00:[facility]: Medical 00 [place] Chocolat Drug Active 2020-[address] [facility] Flavor Allergy 2-07 [facility] 00:[facility]: Medical 00 [place] NO KNOWN Allergy Active [facility] Family History Family Member Diagnosis Comments Start Date Stop Date Source Natural brother Heart disease [facility] Natural father Heart disease [facility] Natural mother Heart disease [facility] Social History Social Habit Start Date Stop Date Quantity Comments Source Tobacco use and 2021-09-23 2021-09-23 Never used CECILIA Aleman exposure 00:00:00 00:00:00 [facility] Social History 2020-08-28 2020-08-28 [facility] 11:54:55 11:54:55 Sex [birth year] CECILIA Aleman 00:00:00 [facility]:00 [facility] Smoking Status Start Date Stop Date Source Never Smoker [facility] Medications Ordered Filled Start Stop Current Ordering Indication Dosage Frequency Signature Comments Components Source Medication Medication Date Date Medication? Clinician (SIG) Name Name tamsulosin 2020-11 Yes .4mg QD Take 0.[address] [facility] (FLOMAX) 2-16 mg by [facility] 0.4 mg Cap 09:57: mouth Medica l 24 hr 03 daily. Center capsule UNKNOWN 2020-[address] [facility] 2-16 softener . [facility] 09:57: Medical 03 Center apixaban 2020-11 Yes 5mg Q.5D Take [address] [facility] (ELIQUIS) 5 -06 tablet (5 [facility] mg Tab 00:00: mg total) Medica l tablet 00 by mouth 2 Center (two) times daily. amiodarone 2020-11- No 200mg Q.5D Take [address] (PACERONE) 12-09-06 tablet [facility] 200 MG 00:00: 23:59 (200 mg Medical tablet 00 :00 total) by Center mouth 2 (two) times daily. atorvastati 2020-11 No 40mg QD Take [address] n (LIPITOR) - 12-06 tablet (40 L ukes 40 MG 00:00: 23:59 mg total) Medica l tablet 00 :00 by mouth Center nightly. tamsulosin 2019-11 Yes 0.4 mg = 1 M emoria 0.4 mg oral 0-27 cap, PO, l capsule 13:53: Daily, # Mahendra n 00 30 cap, 0 Refill(s), Pharmacy: [facility] #[id number], 182.88, cm, 08/22/20 9:38:00 CDT, Height, 87.727, kg, 08/22/20 9:38:00 CDT, Weight glycopyrrol 2019-11 No Route: IV, Memoria ate (ANES) Drug form: l 13:45: INJ, ONCE, [place] 00 Stop date: 08/28/20 8:45:00 CDT Acetaminoph 2019-11 No 1,000 mg, M emoria en Route: PO, l 13:43: Drug form: [place] 00 TAB, ONCE, Dosing Weight 87.727, kg, PRN Pain Score 1-3, Start date: 08/28/20 8:43:00 CDT Morphine 2019-11 No 2 mg, Memoria Route: l 13:43: IVP, [place] 00 Q5Min, Dosing Weight 87.727, kg, PRN Pain Score 4-6, Start date: 08/28/20 8:43:00 CDT, Duration: 5 doses or times, Stop date: Limited # of times Hydromorpho 2019-11 No 0.5 mg, Mem oria ne Route: l 13:43: IVP, [place] 00 Q5Min, Dosing Weight 87.727, kg, PRN Pain Score 7-10, Start date: 08/28/20 8:43:00 CDT, Duration: 4 doses or times, Stop date: Limited # of times Flumazenil 2019-11 No 0.2 mg, Hammad martinez Route: l 13:43: IVP, PRN, Dosing Weight 87.727, kg, PRN Benzodiaze pine Reversal, Initial dose, Start date: 08/28/20 8:43:00 CDT, Duration: 30 day, Stop date: 09/27/20 7:42:00 [employer] Naloxone 2019-11 No 0.4 mg, Memori a Route: l 13:43: IVP, [place] 00 Q2MIN, Dosing Weight 87.727, kg, PRN Narcotic Reversal, Start date: 08/28/20 8:43:00 CDT, Duration: 8 doses or times, Stop date: Limited # of times Ondansetron 2019-11 No 4 mg, Memor ia 0-26 Route: l 13:43: IVP, ONCE, Dosing Weight 87.727, kg, PRN Nausea & Vomiting, Start date: 08/28/20 8:43:00 CDT fentaNYL 2019-11 No Route: IV, Mem oria (ANES) 0-26 Drug form: l 13:40: INJ, ONCE, Stop date: 08/28/20 8:40:00 CDT propofol 2019-11 No Route: IV, Mem oria (ANES) 0-26 Drug form: l 13:40: INJ, ONCE, Stop date: 08/28/20 8:40:00 CDT lidocaine 2019-11 No Route: IV, Me moria (ANES) 0- Drug form: l 13:40: INJ, ONCE, Stop date: 08/28/20 8:40:00 CDT ciprofloxac 2019-11 No Route: IV, Memoria in (ANES) 0- Drug form: l 13:40: INJ, ONCE, Stop date: 08/28/20 8:40:00 CDT ondansetron 2019-11 No Route: IV, Memoria (ANES) 0-26 Drug form: l 13:40: INJ, ONCE, Stop date: 08/28/20 8:40:00 CDT dexamethaso 2019-11 No Route: IV, Memoria ne (ANES) 0- Drug form: l 13:40: INJ, ONCE, Stop date: 08/28/20 8:40:00 CDT midazolam 2019-11 No Route: IV, Me moria (ANES) 0-26 Drug form: l 13:35: SOLN, 00 ONCE, Stop date: 08/28/20 8:35:00 CDT Acetaminoph 2019-11 Yes 1 tab, PO, Memoria en 325 MG / 0-26 Q6H, PRN l Hydrocodone 12:54: for pain, H ermann Bitartrate 00 X 7 day, # 5 MG Oral 10 tab, 0 Tablet Refill(s), [[facility]: ] [id number], 182.88, cm, 08/22/20 9:38:00 CDT, Height, 87.727, kg, 08/22/20 9:38:00 CDT, Weight Docusate 2019-11 Yes 100 mg = 1 Mem oria Sodium 100 0-26 cap, PO, l MG Oral 12:54: BID, PRN Mahendra n Capsule 00 Constipati [Colace] on, # 20 cap, 0 Refill(s), Pharmacy: [facility] #[id number], 182.88, cm, 08/22/20 9:38:00 CDT, Height, 87.727, kg, 08/22/20 9:38:00 CDT, Weight Hyoscyamine 2019-11 Yes 0.125 mg = Memoria Sulfate 0-26 1 tab, SL, l 0.125 MG 12:54: Q6H, PRN Kelsie nn Sublingual 00 Bladder Tablet Spasm, # [Levsin] 60 tab, 0 Refill(s), Pharmacy: [facility] #[id number], 182.88, cm, 08/22/20 9:38:00 CDT, Height, 87.727, kg, 08/22/20 9:38:00 CDT, Weight Phenazopyri 2019-11 No 200 mg = 1 Memoria dine 0-26 tab, PO, l hydrochlori 12:54: TID, PRN He feliciano de 200 MG 00 Dysuria, X Oral Tablet 2 day, # 6 [Pyridium] tab, 0 Refill(s), Pharmacy: [facility] #[id number], 182.88, cm, 08/22/20 9:38:00 CDT, Height, 87.727, kg, 08/22/20 9:38:00 CDT, Weight Lactated 2019-11 No Route: IV, Mem oria Ringers 0-26 Total l Injection 12:49: Volume: Kelsie nn IV (ANES) 00 1,000, 1000 mL Start date: 08/28/20 7:49:00 CDT, Stop date: 08/28/20 8:49:00 CDT Calcium 2019-11 No 1,000 mL, Memor ia Chloride 0-26 Rate: 75 l 0.0014 11:45: ml/hr, [place] MEQ/ML / 00 Infuse Potassium over: 13.3 Chloride hr, Route: 0.004 IV, Dosing MEQ/ML / Weight Sodium 87.727 kg, Chloride Total 0.103 Volume: MEQ/ML / 1,000, Sodium Start Lactate date: 0.028 08/28/20 MEQ/ML 6:45:00 Injectable CDT, Solution Duration: 30 day, Stop date: 09/27/20 6:44:00 [employer], 2.12, m2 sildenafil 2019- Yes 100 mg = 1 M emoria 100 MG Oral 0-16 tab, PO, l Tablet 15:02: Daily, # [place] 00 30 tab, 5 Refill(s), Pharmacy: [facility] #[id number], 180.34, cm, 08/18/20 9:19:00 CDT, Height, 93.693, kg, 08/18/20 9:19:00 CDT, Weight Advil 2019-11 Yes PO, Q6H, 0 Memori a 0-16 Refill(s) l 14:21: [place] 00 Zinc 2019- Yes 140 mg, Memoria 0-16 PO, Daily, l 14:21: 0 [place] 00 Refill(s) tadalafil 2019- Yes 20 mg = 1 Mem oria 20 mg oral 7-07 tab, PO, l tablet 14:49: Daily, PRN Kelsie 00 for erectile dysfunctio n, # 5 tab, 11 Refill(s), Pharmacy: [facility] #[id number] aspirin 81 aspirin 81 No 1 Q1D aspirin 81 [place] mg mg mg Communi tablet,rigo tablet,rigo tablet,del ty yed release yed release ayed H ospita Take 1 Take 1 release l tablet tablet Take 1 Clinics every day every day tablet by oral by oral every day route. route. by oral route. metoprolol metoprolol No metoprolol [place] tartrate 25 tartrate 25 tartrate Communi mg tablet mg tablet 25 mg ty TAKE 1/2 TAKE 1/2 tablet Hospi ta TABLET BY TABLET BY TAKE 1/2 l MOUTH WITH MOUTH WITH TABLET BY Clinics FOOD TWICE FOOD TWICE MOUTH WITH A DAY 90 A DAY 90 FOOD TWICE DAYS DAYS A DAY 90 DAYS Plavix 75 Plavix 75 No 1 Q1D Plavix 75 [place] mg tablet mg tablet mg tablet Communi Take 1 Take 1 Take 1 ty tablet tablet tablet Hospita every day every day every day l by oral by oral by oral Clinic s route. route. route. aspirin 81 aspirin 81 No 1 Q1D aspirin 81 [place] mg mg mg Communi tablet,rigo tablet,rigo tablet,del ty yed release yed release ayed H ospita Take 1 Take 1 release l tablet tablet Take 1 Clinics every day every day tablet by oral by oral every day route. route. by oral route. clopidogrel clopidogrel No clopidogre [place] 75 mg 75 mg l 75 mg Communi tablet TAKE tablet TAKE tablet ty 1 TABLET BY 1 TABLET BY TAKE 1 Hospita MOUTH EVERY MOUTH EVERY TABLET BY l DAY DAY MOUTH Clinics EVERY DAY metoprolol metoprolol No 1 Q1D metoprolol [place] tartrate 25 tartrate 25 tartrate Communi mg tablet mg tablet 25 mg ty Take 1 Take 1 tablet Hospita tablet tablet Take 1 l every day every day tablet Cli nics by oral by oral every day route. route. by oral route. rosuvastati rosuvastati No 1 Q1D rosuvastat [place] n 10 mg n 10 mg in 10 mg Commu ni tablet Take tablet Take tablet ty 1 tablet 1 tablet Take 1 Hospi ta every day every day tablet l by oral by oral every day Clin ics route. route. by oral route. aspirin 81 aspirin 81 No 1 Q1D aspirin 81 [place] mg mg mg Communi tablet,rigo tablet,rigo tablet,del ty yed release yed release ayed H ospita Take 1 Take 1 release l tablet tablet Take 1 Clinics every day every day tablet by oral by oral every day route. route. by oral route. clopidogrel clopidogrel No clopidogre [place] 75 mg 75 mg l 75 mg Communi tablet TAKE tablet TAKE tablet ty 1 TABLET BY 1 TABLET BY TAKE 1 Hospita MOUTH EVERY MOUTH EVERY TABLET BY l DAY DAY MOUTH Clinics EVERY DAY metoprolol metoprolol No 1 Q1D metoprolol [place] tartrate 25 tartrate 25 tartrate Communi mg tablet mg tablet 25 mg ty Take 1 Take 1 tablet Hospita tablet tablet Take 1 l every day every day tablet Cli nics by oral by oral every day route. route. by oral route. rosuvastati rosuvastati No rosuvastat [place] n 10 mg n 10 mg in 10 mg Commu ni tablet Take tablet Take tablet ty 1 tablet 1 tablet Take 1 Hospi ta every day every day tablet l by oral by oral every day Clin ics route. route. by oral route. tamsulosin tamsulosin No tamsulosin [place] 0.4 mg 0.4 mg 0.4 mg Communi capsule capsule capsule ty [facility] aspirin 81 aspirin 81 No 1 Q1D aspirin 81 [place] mg mg mg Communi tablet,rigo tablet,rigo tablet,del ty yed release yed release ayed H ospita Take 1 Take 1 release l tablet tablet Take 1 Clinics every day every day tablet by oral by oral every day route. route. by oral route. clindamycin clindamycin No clindamyci [place] HCl 300 mg HCl 300 mg n HCl 300 Communi capsule capsule mg capsule ty TAKE 1 TAKE 1 TAKE 1 Hospita CAPSULE BY CAPSULE BY CAPSULE BY l MOUTH EVERY MOUTH EVERY MOUTH Clinics 6 HOURS 6 HOURS EVERY 6 HOURS clopidogrel clopidogrel No clopidogre [place] 75 mg 75 mg l 75 mg Communi tablet TAKE tablet TAKE tablet ty 1 TABLET BY 1 TABLET BY TAKE 1 Hospita MOUTH EVERY MOUTH EVERY TABLET BY l DAY DAY MOUTH Clinics EVERY DAY metoprolol metoprolol No metoprolol [place] succinate succinate succinate Communi ER 25 mg ER 25 mg ER 25 mg ty tablet,exte tablet,exte tablet,ext Hospita nded nded ended l release 24 release 24 release 24 Clinics hr TAKE 1 hr TAKE 1 hr TAKE 1 TABLET BY TABLET BY TABLET BY MOUTH EVERY MOUTH EVERY MOUTH DAY FOR 90 DAY FOR 90 EVERY DAY DAYS DAYS FOR 90 DAYS metoprolol metoprolol No 1 Q1D metoprolol [place] tartrate 25 tartrate 25 tartrate Communi mg tablet mg tablet 25 mg ty Take 1 Take 1 tablet Hospita tablet tablet Take 1 l every day every day tablet Cli nics by oral by oral every day route. route. by oral route. rosuvastati rosuvastati No rosuvastat [place] n 10 mg n 10 mg in 10 mg Commu ni tablet TAKE tablet TAKE tablet ty 1 TABLET BY 1 TABLET BY TAKE 1 Hospita MOUTH EVERY MOUTH EVERY TABLET BY l DAY DAY MOUTH Clinics EVERY DAY tamsulosin tamsulosin No tamsulosin [place] 0.4 mg 0.4 mg 0.4 mg Communi capsule capsule capsule ty [facility] Immunizations Ordered Immunization Filled Immunization Date Status Commen ts Source Name Name Pneumococcal 2021-09-[address] [facility] (Prevnar) 00:00:00 [facility] 13-Valent Influenza High Dose 2021-09-25 Completed [facility] Preservative Free IM 00:00:00 [facility] ([id number]) COVID-19, mRNA, COVID-19, mRNA, 2021-03-10 Completed [facility] LNP-S, PF, 30 LNP-S, PF, 30 00:00:00 Hospital Clinics mcg/0.3 mL dose mcg/0.3 mL dose (Pfizer-BioNTech) (Pfizer-BioNTech) COVID-19, mRNA, COVID-19, mRNA, 2021-03-10 Completed [facility] LNP-S, PF, 30 LNP-S, PF, 30 00:00:00 Hospital Clinics mcg/0.3 mL dose mcg/0.3 mL dose (Pfizer-BioNTech) (Pfizer-BioNTech) COVID-19, mRNA, COVID-19, mRNA, 2021-03-10 Completed [facility] LNP-S, PF, 30 LNP-S, PF, 30 00:00:00 Hospital Clinics mcg/0.3 mL dose mcg/0.3 mL dose (Pfizer-BioNTech) (Pfizer-BioNTech) COVID-19, mRNA, COVID-19, mRNA, 2021-03-10 Completed [facility] LNP-S, PF, 30 LNP-S, PF, 30 00:00:00 Hospital Clinics mcg/0.3 mL dose mcg/0.3 mL dose (Pfizer-BioNTech) (Pfizer-BioNTech) COVID-19, mRNA, COVID-19, mRNA, 2021-02-17 Completed [facility] LNP-S, PF, 30 LNP-S, PF, 30 00:00:00 Hospital Clinics mcg/0.3 mL dose mcg/0.3 mL dose (Pfizer-BioNTech) (Pfizer-BioNTech) COVID-19, mRNA, COVID-19, mRNA, 2021-02-17 Completed [facility] LNP-S, PF, 30 LNP-S, PF, 30 00:00:00 Hospital Clinics mcg/0.3 mL dose mcg/0.3 mL dose (Pfizer-BioNTech) (Pfizer-BioNTech) COVID-19, mRNA, COVID-19, mRNA, 2021-02-17 Completed [facility] LNP-S, PF, 30 LNP-S, PF, 30 00:00:00 Hospital Clinics mcg/0.3 mL dose mcg/0.3 mL dose (Pfizer-BioNTech) (Pfizer-BioNTech) COVID-19, mRNA, COVID-19, mRNA, 2021-02-17 Completed [facility] LNP-S, PF, 30 LNP-S, PF, 30 00:00:00 Hospital Clinics mcg/0.3 mL dose mcg/0.3 mL dose (Pfizer-BioNTech) (Pfizer-BioNTech) Vital Signs Vital Name Observation Time Observation Value Comments Source BP Diastolic 2022-04-18 00:00:00 70 mm[Hg] [facility] s Height 2022-04-18 00:00:00 72 [in_i] [facility] s BMI (Body Mass 2022-04-18 00:00:00 26.6 kg/m2 [facility]) [facility] s BP Systolic 2022-04-18 00:00:00 128 mm[Hg] [facility] s Body Weight 2022-04-18 00:00:00 3136 [oz_av] [facility] s BP Diastolic 2022-03-06 00:00:00 62 mm[Hg] [facility] s Height 2022-03-06 00:00:00 72 [in_i] [facility] s BMI (Body Mass 2022-03-06 00:00:00 26.4 kg/m2 [facility]) [facility] s BP Systolic 2022-03-06 00:00:00 120 mm[Hg] [facility] s Body Weight 2022-03-06 00:00:00 3113.6 [oz_av] [facility] s BP Diastolic 2022-02-04 00:00:00 60 mm[Hg] [facility] s Height 2022-02-04 00:00:00 72 [in_i] [facility] s BMI (Body Mass 2022-02-04 00:00:00 25.7 kg/m2 [facility] s BP Systolic 2022-02-04 00:00:00 118 mm[Hg] [facility] s Body Weight 2022-02-04 00:00:00 3030.4 [oz_av] [facility] s HEIGHT 2021-10-18 09:44:00 182.9 cm WEIGHT 2021-10-18 [...] 182.9 cm WEIGHT 2021-09-23 13:40:00 83 kg Systolic (mm Hg) 2020-08-28 18:00:00 Hammad rial [place] Diastolic (mm Hg) 2020-08-28 18:00:00 Mem orial [place] Diastolic (mm Hg) 2020-08-28 16:00:00 Mem orial [place] Systolic (mm Hg) 2020-08-28 16:00:00 Hammad rial [place] Systolic (mm Hg) 2020-08-28 15:00:00 Hammad rial [place] Diastolic (mm Hg) 2020-08-28 15:00:00 Mem orial [place] Respitory Rate 2020-08-28 14:08:00 Memori al [place] Respitory Rate 2020-08-28 14:00:00 Memori al [place] Respitory Rate 2020-08-28 13:45:00 Memori al [place] Heart Rate 2020-08-28 11:46:00 [facility] [place] Height 2020-08-22 14:38:00 182.88 cm [facility] [place] Weight 2020-08-22 14:38:00 [facility] [place] BMI Calculated 2020-08-22 14:38:00 Memori al [place] Height 2020-08-18 14:19:00 180.34 cm [facility] [place] Weight 2020-08-18 14:19:00 [facility] [place] BMI Calculated 2020-08-18 14:19:00 Memori al [place] Procedures Procedure Date / Time Performing Clinician Source Performed Cardiac Surgery 2021-10-08 00:00:00 [facility] Cystourethroscopy (separate 2020-08-18 15:07:00 [facility] procedure) Measurement of post-voiding 2020-08-10 [facility]:46[facility]or [facility] capacity by ultrasound, non-imaging Complex uroflowmetry (eg, 2020-08-10 15:46:00 [facility] Prostate Surgery 2019-11-03 00:00:00 [facility] Cataract Surgery [facility] Cataract extraction and [facility] insertion of intraocular lens Prostate excision [facility] Shoulder incision [facility] Plan of Care Planned Activity Planned Date Details Comments Source Diagnostic Test 2022-11-07 SARS CoV 2 RNA [place] Com munity Pending 00:00:00 (COVID-19), QL, Hospital Cli nics office machine servicer-PCR, respiratory specimen [code = SARS CoV 2 RNA (COVID-19), QL, office machine servicer-PCR, respiratory specimen] Future Scheduled 2022-11-[address] [facility] Test 00:00:00 (12+) [code = Medical Center DEPRESSION SCREENING (12+)] Future Scheduled 2022-11-03 FALLS RISK SCREENING [facility] Test 00:00:00 [code = FALLS RISK Medical C enter SCREENING] Future Scheduled 2022-10-[address] [facility] Test 00:00:00 Counseling and Medical Cente r Screening (12+) [code = Tobacco Cessation Counseling and Screening (12+)] Future Scheduled 2022-09-25 PNEUMOCOCCAL 65+ Y[facility] Test 00:00:00 (2 - PPSV23 or PCV20) Medica l Center [code = PNEUMOCOCCAL 65+ YRS (2 - PPSV23 or PCV20)] Future Scheduled 2022-07-04 INFLUENZA VACCINE (#1) [facility] 00:00:00 [code = INFLUENZA Medical Ce nter VACCINE (#1)] Future Scheduled 2022-03-[address] [facility] Test 00:00:00 measurement [facility] (procedure) [code = 83768439] Future Scheduled 2020-07-[address] [facility] Test 00:00:00 WELLNESS (YEAR 2 or Medical Center FIRST YEAR if no IPPE) [code = MEDICARE ANNUAL WELLNESS (YEAR 2 or FIRST YEAR if no IPPE)] Future Scheduled 2004 SHINGLES VACCINES ([address] [facility] Test 00:00:00 of 2) [code = SHINGLES Medic al Center VACCINES (1 of 2)] Future Scheduled 1973 DTAP/TDAP/TD VACCINES [facility] 00:00:00 (1 - Tdap) [code = Medical C enter DTAP/TDAP/TD VACCINES (1 - Tdap)] Future Scheduled 1972 HEPATITIS C SCREENING [facility] 00:00:00 [code = HEPATITIS C Medical Center SCREENING] Future Scheduled 1964 DIABETIC EYE EXAM [facility] 00:00:00 [code = DIABETIC EYE Medical Center EXAM] Future Scheduled [address] [facility] Test 00:00:00 examination Medical Center (regime/therapy) [code = 162271967] Future Scheduled 1964 Urine screening for [facility] 00:00:00 protein (procedure) Medical Center [code = 855695856] Future Scheduled 1956-01-10 COVID-19 VACCINE (#1) [facility] 00:00:00 [code = COVID-[address] VACCINE (#1)] Future Scheduled [address] [facility] Test 00:00:00 (combo) [code = CT Medical C enter Colonography (combo)] Future Scheduled [address] [facility] Test 00:00:00 malignant neoplasm of Medica l Center colon (procedure) [code = 084175495] Future Scheduled [address] [facility] Test 00:00:00 malignant neoplasm of Medica l Center colon (procedure) [code = 267821968] Future Scheduled [address] [facility] Test 00:00:00 malignant neoplasm of Medica l Center colon (procedure) [code = 649199533] Future Scheduled [address] [facility] Test 00:00:00 malignant neoplasm of Medica l Center colon (procedure) [code = 339055882] Future Scheduled 1955 Sigmoidoscopy [code = [facility] 00:[facility] Sigmoidoscopy] Medical Cente r Encounters Start End Encounter Admission Attending Care Care Encounter Source Date/Time Date/Time Type Type Clinicians Facility Department ID 2022-11-07 2022-11-07 Outpatient KIN [facility] [id number] 2022 [place] 00:00:00 00:00:00 0105 [facility] Clin[facility] 2022-11-07 2022-11-07 Lizett Luther [facility] [place] 105 [place] 00:00:00 00:00:00 Marleni Rapp MD: [address] [facility] Hospit [address], [address], H[facility], [address] ARJUN , Ph. 2022-04-18 2022-04-18 Outpatient KEFFER_A [facility] 2021 [place] 01:05:00 01:05:00 [id number] Commun i ty Hospita l [facility] 2022-04-18 2022-04-18 Outpatient Lizett Rapp [facility] [id number] 00:00:00 00:00:00 Homa [id number] 2022-04-18 2022-04-18 Lizett Luther [facility] [place] [address] [place] 00:00:00 00:00:00 Marleni Rapp MD: [address] [facility] Hospit [address], COMM[address], HOSP[facility], [address] ARJUN , Ph. 2022-03-06 2022-03-06 Outpatient ARJUN_A [facility] 2021 [place] 04:45:00 04:45:00 [id number] Commun i ty Hospita l [facility] 2022-03-06 2022-03-06 Outpatient Lizett Rapp [facility] [id number] 00:00:00 00:00:00 Homa [id number] 2022-03-06 2022-03-[address] [facility] [place] [id number] [place] 00:00:00 00:00:00 Marleni Rapp MD: [address] [facility] Hospit a [address], COMMUNITY l [address], [facility], [address] ARJUN , Ph. 2022-02-04 2022-02-04 Outpatient GEORGIEFFER_A [facility] 2021 [place] 11:41:00 11:41:00 0404 Commun i [facility] Clinics 2022-02-04 2022-02-04 Outpatient Lizett Rapp [facility] [id number] 00:00:00 00:00:00 Homa [id number] 2022-02-04 2022-02-04 Lizett Luther [facility] [place] 404 [place] 00:00:00 00:00:00 Marleni Rapp MD: [address] [facility] [address] [facility] Hospit a [address], COMMUNITY l [address], HOSPITAL Clinic [place], [place], [address] ARJUN , Ph. 2022-01-22 2022-01-22 Outpatient GEORGIEJACKY_A [facility] [id number] [place] 03:02:00 03:02:00 0322 Commun i ty Hospita l Clinics 2021-12-16 2021-12-[address] [id number] [facility] 00:00:00 00:00:00 [facility] 2021-12-04 2021-12-04 Outpatient KEFFER_A [facility] [id number] [place] 05:07:00 05:07:00 0201 Commun i ty Hosp[facility] Clinics 2021-11-27 2021-11-27 Outpatient KEFFER_A [facility] [id number] [place] 11:26:00 11:26:00 0125 Commun i ty Hosp[facility] Clinics 2021-10-18 2021-10-18 Outpatient JHON ANDERSEN [facility] [id number] SLE 09:42:04 09:42:04 CHARITY 2021-10-09 2021-10-10 Inpatient ER GERI [facility] Cardiology [id number] SLE 00:06:00 18:20:00 NIDHI 2021-10-09 2021-10-09 Outpatient [facility] [id number] [address] [place] [address] 00:00:00 23:59:00 Karin 2021-09-23 2021-10-08 Inpatient ER GERI [facility] Surgery [id number] [facility] 13:38:00 11:15:00 NIDHI 2021-09-23 2021-09-23 Outpatient BCM BCM [id number] [facility] 13:38:00 23:59:00 [facility] 2021-09-23 2021-09-23 Outpatient BCM BCM [id number] [facility] 00:00:00 23:59:00 [facility] 2020-12-11 2020-12-11 [place] [id number] Mem[place] 20:50:00 20:50:00 Pre-Reg r Urology [address] [facility] 2020-12-11 2020-12-11 Outpatient MHIE MHIE [id number] [place] 14:50:00 14:50:00 11 lynsey Cotton 2020-12-11 2020-12-11 Outpatient [place], MG [place] [id number] 14:50:00 14:50:00 Sia 11 Blayne 2020-09-11 2020-09-12 [place] [id number] Mem[place] 21:15:00 05:59:59 r Urology [address] [facility] 2020-09-11 2020-09-11 Outpatient [place], [place] [id number] 15:15:00 23:59:59 Sia 09 Blayne 2020-09-11 2020-09-11 Outpatient MHIE MHIE [id number] [facility] 15:15:00 15:15:00 09 lynsey Cotton 2020-09-04 2020-09-04 Outpatient MHIE MHIE [id number] Memoria 10:00:00 10:00:00 10 lynsey Cotton 2020-08-29 2020-08-30 [place] [id number] Mem[facility] 13:35:00 04:59:59 r Urology [address] [facility] 2020-08-29 2020-08-29 Outpatient [place], MG MG [id number] 08:35:00 23:59:59 Sia 08 Blayne 2020-08-29 2020-08-29 Outpatient MHIE MHIE [id number] Memoria 08:35:00 08:35:00 08 lynsey Cotton 2020-08-28 2020-08-28 Day nullFlavo [facility] [id number] Memoria 10:43:00 19:15:00 Surgery r Yury 00 l [facility] 2020-08-28 2020-08-28 Outpatient HOGGATT, MHSE URO 7500 MH 05:43:00 14:15:00 SIA kennedy [facility] 2020-08-28 2020-08-28 Outpatient [place], MHSE MHSE [id number] 05:43:00 14:15:00 Siaronaldo Cisneros 2020-08-28 2020-08-28 Outpatient [place], MHSE MHSE [id number] 07:30:00 07:30:00 Sia 00 Blayne 2020-08-18 2020-08-19 Outpatient nullFlavo [facility] [id number] Memoria 14:00:00 04:59:59 r Urology [address] [facility] 2020-08-18 2020-08-18 Outpatient Hoggatt, MHMG MG [id number] 09:00:00 23:59:59 Sia 04 Blayne 2020-08-18 2020-08-18 Outpatient MHIE MHIE [id number] Memoria 09:00:00 09:00:00 04 lynsey Yury 2020-08-18 2020-08-18 Outpatient MHIE MHIE [id number] Memoria 09:00:00 09:00:00 05 lynsey Cotton 2020-08-18 2020-08-18 Outpatient MHIE MHIE [id number] Memoria 08:45:00 08:45:00 07 lynsey Cotton 2020-08-10 2020-08-11 [place] [id number] [facility] 16:00:00 04:59:59 r Urology [address] [facility] 2020-08-10 2020-08-10 Outpatient VISIT, MG MG [id number] 11:00:00 23:59:59 MED_ASST 06 [facility] 2020-08-10 2020-08-10 Outpatient MHIE MHIE [id number] Memoria 11:00:00 11:00:00 06 lynsey Cotton 2020-08-09 2020-08-09 Outpatient MHIE MHIE [id number] Memoria 11:00:00 11:00:00 03 lynsey Cotton 2020-05-26 2020-05-26 [place] [id number] Memoria 15:30:00 15:30:00 Pre-Reg r Urology 02 lynsey arevalo [place] 2020-05-26 2020-05-26 Outpatient MHIE IE [id number] Memoria 10:30:00 10:30:00 02 lynsey Cotton 2020-05-26 2020-05-26 Outpatient Hoggatt, [facility] [id number] 10:30:00 10:30:00 Sia Venu Blayne 2020-05-18 2020-05-18 [place] [id number] Memoria 15:00:00 15:00:00 Pre-Reg r Urology 01 lynsey arevalo [place] 2020-05-18 2020-05-18 Outpatient MHIE IE [id number] Memoria 10:00:00 10:00:00 01 lynsey Cotton 2020-05-18 2020-05-18 Outpatient VISIT, [facility] [id number] 10:00:00 10:00:00 MED_ASST 01 UAHT 2020-05-09 2020-05-10 [place] [id number] Mem[place] 14:00:00 04:59:59 r Urology 00 lynsey arevalo [place] 2020-05-09 2020-05-09 Outpatient [place], [facility] [id number] 09:00:00 23:59:59 Sia Kip Cisneros Results Test Description Test Time Test Comments Results Result Comments Source BLOOD CULTURE 2021-10-14 09:00:52 Test Item Value Reference Range Interpretation Comme nts CULTURE (BEAKER) (test code = 1095) No growth in 5 days BLOOD [id number] 09:00:51 Test Item Value Reference Range Interpretation Comments CULTURE (BEAKER) (test No growth in 5 days code = 1095) POCT-GLUCOSE [id number] 12:35:57 Test Item Value Reference Range Interpretation Comments POC-GLUCOSE METER 127 mg/dL 70-110 H : TESTED A T [facility] 6720 (BEAKER) (test code = TONY LAWSON [place], 1538) 09545: It Security Project Manager/Techni hien ID = [id number] for Sheryl Acosta POCT-GLUCOSE [id number] 07:20:11 Test Item Value Reference Range Interpretation Comments POC-GLUCOSE METER 100 mg/dL 70-110 : TESTED A T [facility] 67[facility] (BEAKER) (test code = TONY No [place]SON [place], 1538) 66522: It Security Project Manager/Techni hien ID = [id number] for Sheryl Acosta [id number] 04:36:49 Test Item Value Reference Range Interpretation Comments MAGNESIUM (BEAKER) (test code = 2.3 mg/dL 1.6-2.6 627) It Security Project Manager ID - YOMI MBASIC METABOLIC [id number] 04:36:48 Test Item Value Reference Range Interpretation [...] S NOT APPLICABLE FOR DIALYSIS PATIEN TS. It Security Project Manager ID - OYMI MCBC (HEMOGRAM ONLY)2021-10-10 04:18:01 Test Item Value [...] RED BLOOD CELLS 0 /100 WBC 0-0 (AKER) (test code = 413) POCT-GLUCOSE [id number] 21:33:43 Test Item Value Reference Range Interpretation Comments POC-GLUCOSE METER 120 mg/dL 70-110 H : TESTED A T [facility] 6720 ([facility]) (test code = [facility], 1538) 67318: It Security Project Manager/Techni hien ID = [id number] for Vo ltKendra moreno POCT-GLUCOSE [id number] 17:36:36 Test Item Value Reference Range Interpretation Comments POC-GLUCOSE METER 141 mg/dL 70-110 H : TESTED A T [facility] 6720 ([facility]) (test code = [facility], 1538) 50759: It Security Project Manager/Techni hien ID = [id number] for [place], Sheryl POCT-GLUCOSE [id number] 12:16:56 Test Item Value Reference Range Interpretation Comments POC-GLUCOSE METER 180 mg/dL 70-110 H : TESTED A T [facility] 6720 ([facility]) (test code = [facility], 1538) 56937: It Security Project Manager/Techni hien ID = [id number] for Ch eung, Sheryl RAD, CHEST, 1 VIEW, NON [id number] 11:13:00Reason for exam:->recent acb, CT removalShould this be performed at the bedside?->[facility] 1955 Sex: MFINAL REPORT RAD, CHEST, 1 VIEW, NON DEPT INDICATION: recent acb, CT removal COMPARISON:October 07, 2021 FINDINGS: Portable frontal view of the chest. IMPRESSION: Support Lines: None Lungsand pleura: Improving left apical pneumothorax. No new consolidation.Heart and mediastinum: Stable contours. Stable surgical changes.Additional findings: None. Signed: JR Moreno Robert MDReportVerified Date/Time: 10/09/2021 11:13:44 Reading Location: [facility] Radiology Reading Room BASIC METABOLIC [id number] 09:40:37 Test Item Value Reference Range Interpretation [...] S NOT APPLICABLE FOR DIALYSIS PATIEN TS. It Security Project Manager ID - PATRICIA FOperator ID - PATRICIA FOperator ID - PATRICIA Bolden [id number] 09:00:03 Test Item Value Reference Range Interpretation Comments MAGNESIUM (BEAKER) (test code = 2.2 mg/dL 1.6-2.6 627) It Security Project Manager ID - PATRICIA FURINALYSIS WITH MICROSCOPIC IF [id number] 08:44:57 Test Item Value Reference Range Interpretation [...] = 463) SOURCE(BEAKER) (test code = 2795) It Security Project Manager ID - [auto]CBC (HEMOGRAM ONLY)2021-10-09 08:38:37 Test [...] 0-0 (BEAKER) (test code = 413) POCT-GLUCOSE [id number] 08:06:53 Test Item Value Reference Range Interpretation Comments POC-GLUCOSE METER 104 mg/dL 70-110 : TESTED A T [facility] 6720 (BEAKER) (test code = [facility], 1538) 09612: It Security Project Manager/Techni hien ID = [id number] for Sheryl Acosta POCT-GLUCOSE [id number] 07:49:20 Test Item Value Reference Range Interpretation Comments POC-GLUCOSE METER 111 mg/dL 70-110 H : TESTED A T [facility] 6720 (BEAKER) (test code = [facility] [employer] [facility], 1538) 42984: It Security Project Manager/Techni hien ID = [id number] for GABRIELLE CLARIBELNESTOR CORTESFANY BASIC METABOLIC [id number] 06:34:25 Test Item Value Reference Range Interpretation [...] S NOT APPLICABLE FOR DIALYSIS PATIEN TS. It Security Project Manager ID - YOMI MCBC (HEMOGRAM ONLY)2021-10-08 06:10:47 [...] 0-0 (BEAKER) (test code = 413) POCT-GLUCOSE [id number] 21:32:42 Test Item Value Reference Range Interpretation Comments POC-GLUCOSE METER 175 mg/dL 70-110 H : TESTED A T [facility] 6720 (BEAKER) (test code = [facility], 1538) 66994: It Security Project Manager/Techni hien ID = [id number] for ESPERANZA LAO POCT-GLUCOSE [id number] 17:33:59 Test Item Value Reference Range Interpretation Comments POC-GLUCOSE METER 162 mg/dL 70-110 H : TESTED A T [facility] 6720 (BEAKER) (test code = [facility], 1538) 21598: It Security Project Manager/Techni hien ID = [id number] for PERCY CAMACHO POCT-GLUCOSE [id number] 12:14:01 Test Item Value Reference Range Interpretation Comments POC-GLUCOSE METER 189 mg/dL 70-110 H : TESTED A T [facility] 6720 (BEAKER) (test code = RODRIGUEWV [employer] [facility], 1538) 36371: It Security Project Manager/Techni hien ID = [id number] for PERCY CAMACHO POCT-GLUCOSE [id number] 08:21:02 Test Item Value Reference Range Interpretation Comments POC-GLUCOSE METER 129 mg/dL 70-110 H : TESTED A T [facility] 6720 (BEAKER) (test code = [facility], 1538) 35449: It Security Project Manager/Techni hien ID = [id number] for PERCY CAMACHO BASIC METABOLIC [id number] 04:39:23 Test Item Value Reference Range Interpretation [...] S NOT APPLICABLE FOR DIALYSIS PATIEN TS. It Security Project Manager ID - DBRAD, CHEST, 1 VIEW, NON [id number] 04:38:00Reason for exam:- >[facility] : 1955 Sex: MFINAL REPORT CLINICAL INDICATION: Chest tube removal Comparison: 10/05/2021 There is a small left apical pneumothorax after left chest tube removal, unchanged from previous and demonstrating approximately 1.2 cm of pleural separation. The cardiomediastinal contours are stable. Curvilinear opac ity in the retrocardiac left lung is similar [...] 0-0 (BEAKER) (test code = 413) POCT-GLUCOSE [id number] 20:34:24 Test Item Value Reference Range Interpretation Comments POC-GLUCOSE METER 105 mg/dL 70-110 : TESTED A T [facility] 6720 (BEAKER) (test code = [facility], 1538) 01787: It Security Project Manager/Techni hien ID = [id number] for PI TTS, ESPERANZA POCT-GLUCOSE [id number] 18:05:41 Test Item Value Reference Range Interpretation Comments POC-GLUCOSE METER 198 mg/dL 70-110 H : TESTED A T [facility] 6720 (BEAKER) (test code = [facility], 1538) 15860: It Security Project Manager/Techni hien ID = [id number] for Ma rtinez Love, Tanairy POCT-GLUCOSE [id number] 12:29:02 Test Item Value Reference Range Interpretation Comments POC-GLUCOSE METER 173 mg/dL 70-110 H : TESTED A T [facility] 6720 (BEAKER) (test code = [facility], 1538) 97714: It Security Project Manager/Techni hien ID = [id number] for Ma rtinez Love, Tanairy POCT-GLUCOSE [id number] 07:57:57 Test Item Value Reference Range Interpretation Comments POC-GLUCOSE METER 127 mg/dL 70-110 H : TESTED A T [facility] 6720 (BEAKER) (test code = [facility], 1538) 23458: It Security Project Manager/Techni hien ID = [id number] for Ma rtinez Love, Tanairy BASIC METABOLIC [id number] 05:54:27 Test Item Value Reference Range Interpretation [...] S NOT APPLICABLE FOR DIALYSIS PATIEN TS. It Security Project Manager ID - DBCBC (HEMOGRAM ONLY)2021-10-06 05:38:57 Test [...] CELLS (BEAKER) (test code = 413) POCT-GLUCOSE [id number] 20:46:44 Test Item Value Reference Range Interpretation Comments POC-GLUCOSE METER 196 mg/dL 70-110 H : TESTED Mikaela Patricia [facility] 6720 (MIKAEL) (test code = TONY LAWSON [place], 1538) 47638: It Security Project Manager/Techni hien ID = [id number] for ESPERANZA LAO SARS-COV2/RT-PCR ([facility])2021-10-05 20:14:26 Test Item Value Reference Range Interpretation Comments SARS-COV2/RT-PCR (test code = Negative Negative [id number]) Negative result for this test determines that [...] under Section 564(g) of the Act.Testing was performed using the Prado SARS-CoV-2 assay.Fact Sheet for Healthcare Providers:https://www.Zettaset.prado/joanie/RT SARS-CoV-2 HCP Fact Sheet 51- 870328.pdfFact Sheet for Healthcare Patients:https://www.Zettaset.prado/joanie/RT SARS-CoV-2 Patient Fact Sheet EN 51-811628M9.pdfPOCT-GLUCOSE [id number] 17:35:49 Test Item Value Reference Range Interpretation Comments POC-GLUCOSE METER 157 mg/dL 70-110 H : TESTED A T [facility] 6720 (BEAKER) (test code = TONY No [facility], 1538) 40552: It Security Project Manager/Techni hien ID = [id number] for Sheryl Acosta POCT-GLUCOSE [id number] 12:46:51 Test Item Value Reference Range Interpretation Comments POC-GLUCOSE METER 159 mg/dL 70-110 H : TESTED A T [facility] 6720 (BEAKER) (test code = TONY No [facility], 1538) 98388: It Security Project Manager/Techni hien ID = [id number] for Sheryl Acosta RAD, CHEST, 1 VIEW, NON [id number] 10:48:00Reason for exam:->Evaluate cardiopulmonary status Should this be performed at the bedside?->[facility] 1955 Sex: MFINAL REPORT RAD, CHEST, 1 VIEW, NON DEPT INDICATION: Evaluate cardiopulmonary status COMPARISON: Prior day's exam FINDINGS: Portable frontal view of the chest. IMPRESSION: Support Lines: Stable. Lungs and pleura: Clear lungs. Stable left apical pneumothorax.Heart and mediastinum: Stable contours. Stable surgical changes.Additional findings: None. Signed: JR Moreno Robert MDReport Verified Date/Time: 10/05/2021 10:48:27 Reading Location: [facility] Radiology Reading Room POCT-GLUCOSE [id number] 08:17:16 Test Item Value Reference Range Interpretation Comments POC-GLUCOSE METER 116 mg/dL 70-110 H : [facility] (BEAKER) (test code = TONY LAWSON [place], 1538) 77135: It Security Project Manager/Techni hien ID = [id number] for Sheryl Acosta BASIC METABOLIC [id number] 04:41:19 Test Item Value Reference Range Interpretation [...] S NOT APPLICABLE FOR DIALYSIS PATIEN TS. It Security Project Manager ID - SARAH GCBC (HEMOGRAM ONLY)2021-10-05 04:18:12 [...] 0-0 (BEAKER) (test code = 413) POCT-GLUCOSE [id number] 20:58:31 Test Item Value Reference Range Interpretation Comments POC-GLUCOSE METER 157 mg/dL 70-110 H : TESTED A T [facility] 6720 (BEAKER) (test code = [facility], 1538) 00293: It Security Project Manager/Techni hien ID = [id number] for Re yes, Sairy HEMOGLOBIN AND [id number] 19:58:36 Test Item Value Reference Range Interpretation Comments HEMOGLOBIN (BEAKER) (test code = 8.0 GM/DL 13.7-17.5 L 410) HEMATOCRIT (BEAKER) (test code = 24.5 % 40.1-51.0 L 411) It Security Project Manager ID - [id number]-GLUCOSE [id number] 17:32:51 Test Item Value Reference Range Interpretation Comments POC-GLUCOSE METER 149 mg/dL 70-110 H : TESTED A T [facility] 6720 (BEAKER) (test code = [facility], 1538) 78779: It Security Project Manager/Techni hien ID = [id number] for Ch eung, Sheryl POCT-GLUCOSE [id number] 12:23:28 Test Item Value Reference Range Interpretation Comments POC-GLUCOSE METER 134 mg/dL 70-110 H : TESTED A T [facility] 6720 (BEAKER) (test code = [facility], 1538) 33548: It Security Project Manager/Techni hien ID = [id number] for Ch eung, Sheryl POCT-GLUCOSE [id number] 07:43:41 Test Item Value Reference Range Interpretation Comments POC-GLUCOSE METER 130 mg/dL 70-110 H : TESTED A T [facility] 6720 (BEAKER) (test code = TONY [place], 1538) 26089: It Security Project Manager/Techni hien ID = [id number] for Sheryl Acosta RAD, CHEST, 1 VIEW, NON [id number] 07:15:00Reason for exam:->post cv surgeryShould this be performed at the bedside?->[facility] 1955 Sex: MFINAL REPORT RAD, CHEST, 1 VIEW, NON DEPT INDICATION: post cv surgery COMPARISON: Prior day's exam FINDINGS: Portable frontal view of the chest. IMPRESSION: Support Lines: Stable. Lungs and pleura: No new consolidation. No pneumothorax.Heart and mediastinum: Stable contours. Stable surgical c hanges.Additional findings: None. Signed: JR Moreno Robert MDReport Verified Date/Time: 10/04/2021 07:15:34 Reading Location: [facility] Radiology Reading Room BASIC METABOLIC [id number] 05:55:48 Test Item Value Reference Range Interpretation [...] S NOT APPLICABLE FOR DIALYSIS PATIEN TS. It Security Project Manager ID - YOMI MCBC (HEMOGRAM ONLY)2021-10-04 05:52:57 [...] 0-0 (BEAKER) (test code = 413) CALCIUM, [id number] 05:35:11 Test Item Value Reference Range Interpretation Comments CALCIUM IONIZED (BEAKER) (test 1.10 mmol/L 1.12-1.27 L code = 698) PH, BLOOD (BEAKER) (test code = 7.44 1810) POCT-GLUCOSE [id number] 21:04:29 Test Item Value Reference Range Interpretation Comments POC-GLUCOSE METER 120 mg/dL 70-110 H : TESTED A T [facility] 6720 (BEAKER) (test code = TONY No [facility], 1538) 53357: It Security Project Manager/Techni hien ID = [id number] for Re yes, Sairy POCT-GLUCOSE [id number] 17:27:46 Test Item Value Reference Range Interpretation Comments POC-GLUCOSE METER 143 mg/dL 70-110 H : TESTED A T [facility] 6720 (BEAKER) (test code = TONY No [facility], 1538) 72915: It Security Project Manager/Techni hien ID = [id number] for Rupert Nguyen RAD, ABDOMEN/KUB, 1 VIEW [id number] 16:55:00Reason for exam:->[facility] 1955 Sex: MFINAL REPORT EXAM: KUB CLINICAL HISTORY: Vomiting FINDINGS: Air-filled nondilated small and large bowel loops are noted throughout the abdomen which may represent ileus. In addition, moderateretained feces are seen in the ascending colon. There is no gross evidence of pneumoperitoneum. Left-sided chest tube is noted. Degenerative changes are noted throughout the lumbar spine with mild scoliosis. Signed: Freedom Denson MDReport Verified Date/Time: 10/03/2021 16:55:30 Reading Location: [facility] Radiology Reading Room HEMOGLOBIN AND HEMATOCRIT 2021-10-03 13:53:48 Test Item Value Reference Range Interpretation Comments HEMOGLOBIN (MIKAEL) (test code = 7.7 GM/DL 13.7-17.5 L 410) HEMATOCRIT (MIKAEL) (test code = 24.2 % 40.1-51.0 L 411) It Security Project Manager ID - [id number]-GLUCOSE [id number] 13:36:49 Test Item Value Reference Range Interpretation Comments POC-GLUCOSE METER 125 mg/dL 70-110 H : TESTED A T [facility] 6720 (MIKAEL) (test code = TONY No [facility], 1538) 56960: It Security Project Manager/Techni hien ID = [id number] for Ma inez Love, Tanairy POCT-GLUCOSE [id number] 07:42:31 Test Item Value Reference Range Interpretation Comments POC-GLUCOSE METER 136 mg/dL 70-110 H : TESTED A T [facility] 6720 (MIKAEL) (test code = TONY No [facility], 1538) 25195: It Security Project Manager/Techni hien ID = [id number] for Ma rtinez Love, Tanairy RAD, CHEST, 1 VIEW, NON [id number] 07:33:00Reason for exam:->post cv surgeryShould this be performed at the bedside?->[facility] 1955 Sex: MFINAL REPORT RAD, CHEST, 1 VIEW, NON DEPT INDICATION: post cv surgery COMPARISON: Prior day's exam FINDINGS: Portable frontal view of the chest. IMPRESSION: Support Lines: Right IJ central venous catheter has been removed. Surgical drains remain in situ. Lungs and pleura: Right lung is clear. Basilar subsegmental atelectasis on the left. Trace residual left apical pneumothorax.Heart and mediastinum: Stable contours. Stable surgical changes.Additional findings: None. Signed: JR Josh, Maria Del Rosario LOMAXeport Verified Date/Time: 10/03/2021 07:33:44 Reading Location: [facility] Radiology Reading Room [id number] 04:15:52 Test Item Value Reference Range Interpretation Comments MAGNESIUM (BEAKER) (test code = 2.1 mg/dL 1.6-2.6 627) It Security Project Manager ID - YOMI MBASIC METABOLIC [id number] 04:15:51 Test Item Value Reference Range Interpretation [...] S NOT APPLICABLE FOR DIALYSIS PATIEN TS. It Security Project Manager ID - YOMI MCALCIUM, [id number] 04:08:49 Test Item Value Reference Range Interpretation [...] 0-0 (BEAKER) (test code = 413) POCT-GLUCOSE [id number] 22:01:04 Test Item Value Reference Range Interpretation Comments POC-GLUCOSE METER 144 mg/dL 70-110 H : TESTED A T [facility] 6720 (BEAKER) (test code = [facility], 153) 08481: It Security Project Manager/Techni hien ID = [id number] for MU LJI, TRIP POCT-GLUCOSE [id number] 16:06:21 Test Item Value Reference Range Interpretation Comments POC-GLUCOSE METER 165 mg/dL 70-110 H : TESTED A T [facility] 6720 (BEAKER) (test code = [facility], 1538) 59764: It Security Project Manager/Techni hien ID = [id number] for PH ILIP, WILDA LACTATE DEHYDROGENASE (LDH)2021-10-02 15:33:16 Test Item Value Reference Range Interpretation Comments LACTATE DEHYDROGENASE (BEAKER) (test 248 U/L 125-220 H code = 635) It Security Project Manager ID - BSHEPATIC FUNCTION [id number] 15:33:15 Test Item Value Reference Range Interpretation Comments TOTAL PROTEIN (BEAKER) (test code = 4.7 gm/dL 6.0-8.3 L 770) ALBUMIN (BEAKER) (test code = 1145) 3.1 g/dL 3.5-5.0 L BILIRUBIN TOTAL (BEAKER) (test code 1.9 mg/dL 0.2-1.2 H = 377) BILIRUBIN DIRECT (BEAKER) (test 0.9 mg/dL 0.1-0.5 H code = 706) ALKALINE PHOSPHATASE (BEAKER) (test 57 U/L 40-150 code = 346) AST (SGOT) (BEAKER) (test code = 31 U/L 5-34 353) ALT (SGPT) (BEAKER) (test code = 27 U/L 6-55 347) [employer] Project Manager ID - BSRETICULOCYTE [id number] 14:14:16 Test Item Value Reference Range Interpretation Comments RETICULOCYTE COUNT PCT (BEAKER) (test 1.2 % 0.5-1.8 code = 575) It Security Project Manager ID - [id number] 11:33:33 Test Item Value Reference Range Interpretation Comments POC-GLUCOSE METER 193 mg/dL 70-110 H : TESTED A T [facility] 6720 (BEAKER) (test code = TONY No [facility], 1538) [address]: It Security Project Manager/Techni hien ID = [id number] for PH ILIP, WILDA MISCELLANEOUS LAB [id number] 08:06:38 Test Item Value Reference Range Interpretation Comments SCAN RESULT (test code = 3032400) See scanned reportRAD, CHEST, 1 VIEW, NON [id number] 07:20:00while patient is intubated or has chest tubes.Reason for exam:->Status post CV SurgeryShould thisbe performed at the bedside?->[facility] 1955 Sex: MFINAL REPORT RAD, CHEST, 1 VIEW, NON DEPT INDICATION: Status post CV Surgery COMPARISON: Prior day's exam FINDINGS: Portable frontal view of the chest. IMPRESSION: Support Lines: Interval extubation and removal of enteric tube. Remaining support hardware is stable. Lungs and pleura: Scattered subsegmental atelectasis on the left. Right lung is clear. No pneumothorax.Heart and mediastinum: Stable contours. Stable surgical changes.Additional findings: None. Signed: JR Moreno Robert MDReport Verified Date/Time: 10/02/2021 07:20:58 Reading Location: [facility] Radiology Reading Room [id number] 06:27:20 Test Item Value Reference Range Interpretation Comments ACTIVATED CLOTTING TIME 106 sec : 74 -137 seconds, (BEAKER) (test code = Baseli ne: TESTED AT 441) [place] [address] 30: It Security Project Manager/Techni hien ID = [id number] for HU DSPMCKENZIE CERVANTESIE [id number] 06:27:19 Test Item Value Reference Range Interpretation Comments ACTIVATED CLOTTING TIME 118 sec : 74 -137 seconds, (BEAKER) (test code = Baseli ne: TESTED AT 441) [address], [facility] 30: It Security Project Manager/Techni hien ID = [id number] for LETHRIDGE, ROBERTO KATJA [id number] 06:26:51 Test Item Value Reference Range Interpretation Comments ACTIVATED CLOTTING TIME 398 sec : 74 -137 seconds, (BEAKER) (test code = Baseli ne: TESTED AT 441) [place] [address] 30: It Security Project Manager/Techni hien ID = [id number] for HU DSPETH, COREY [id number] 06:26:50 Test Item Value Reference Range Interpretation Comments ACTIVATED CLOTTING TIME 523 sec : 74 -137 seconds, (BEAKER) (test code = Baseli ne: TESTED AT 441) [address], [facility] 30: It Security Project Manager/Techni hien ID = [id number] for DEMARCUS DSPCOREY CERVANTES [id number] 06:26:49 Test Item Value Reference Range Interpretation Comments ACTIVATED CLOTTING TIME 523 sec : 74 -137 seconds, (BEAKER) (test code = Baseli ne: TESTED AT 441) [address], [facility] 30: It Security Project Manager/Techni hien ID = [id number] for HU DSPBILLY, COREY [id number] 06:26:49 Test Item Value Reference Range Interpretation Comments ACTIVATED CLOTTING TIME 600 sec : 74 -137 seconds, (BEAKER) (test code = Baseli ne: TESTED AT 441) [address], [facility] 30: It Security Project Manager/Techni hien ID = [id number] for HU DSPBILLY COREY [id number] 06:26:48 Test Item Value Reference Range Interpretation Comments ACTIVATED CLOTTING TIME 571 sec : 74 -137 seconds, (BEAKER) (test code = [place] ne: TESTED AT 441) [address], [facility] 30: It Security Project Manager/Techni hien ID = [id number] for HU DSPCOREY CERVANTES [id number] 06:26:47 Test Item Value Reference Range Interpretation Comments ACTIVATED CLOTTING TIME 416 sec : 74 -137 seconds, (BEAKER) (test code = [place] ne: TESTED AT 441) [address], [facility] 30: It Security Project Manager/Techni hien ID = [id number] for HU DSPCOREY CERVANTES POCT-GLUCOSE [id number] 06:16:46 Test Item Value Reference Range Interpretation Comments POC-GLUCOSE METER 174 mg/dL 70-110 H : TESTED A T [place] [address] (BEAKER) (test code = [facility], 1538) [address]: It Security Project Manager/Techni hien ID = [id number] for [place] BASIC METABOLIC [id number] 03:20:00 Test Item Value Reference Range Interpretation [...] S NOT APPLICABLE FOR DIALYSIS PATIEN TS. It Security Project Manager ID - [id number] 03:11:39 Test Item Value Reference Range Interpretation Comments PHOSPHORUS (BEAKER) 4.2 mg/dL 2.3-4.7 Specimen slightly (test code = 604) hemolyzed It Security Project Manager ID - [id number] 03:11:38 Test Item Value Reference Range Interpretation Comments MAGNESIUM (BEAKER) 2.3 mg/dL 1.6-2.6 Specimen slightly (test code = 627) hemolyzed It Security Project Manager ID - DBCALCIUM, [id number] 02:39:31 Test Item Value Reference Range Interpretation Comments CALCIUM IONIZED (BEAKER) (test 1.10 mmol/L 1.12-1.27 L code = 698) PH, BLOOD (BEAKER) (test code = 7.37 1810) BLOOD GAS, [id number] 02:39:21 Test Item Value Reference Range Interpretation Comments PH ARTERIAL (BEAKER) (test code = 7.35 7.35-7.45 383) PCO2 ARTERIAL (BEAKER) (test code 43 mm Hg 35-45 = 384) PO2 ARTERIAL (BEAKER) (test code 147 mm Hg 80-90 H = 385) O2 SATURATION ARTERIAL (BEAKER) 98.7 % 96.0-97.0 H (test code = 386) HCO3 ARTERIAL (BEAKER) (test code 23 mmol/L -29 = 388) BASE EXCESS ARTERIAL (BEAKER) -2.5 [...] 0-0 (BEAKER) (test code = 413) CALCIUM, [id number] 21:15:54 Test Item Value Reference Range Interpretation Comments CALCIUM IONIZED (BEAKER) (test 1.06 mmol/L 1.12-1.27 L code = 698) PH, BLOOD (BEAKER) (test code = 7.41 1810) HGB/HCT (H&H) - STAT [id number] 21:15:12 Test Item Value Reference Range Interpretation Comments HEMOGLOBIN (BEAKER) (test code = 8.6 GM/DL 13.0-16.8 L 410) HEMATOCRIT (BEAKER) (test code = 25.0 % 40.0-50.0 L 411) GLUCOSE-STAT [id number] 21:15:11 Test Item Value Reference Range Interpretation Comments GLUCOSE RANDOM (BEAKER) (test code 203 mg/dL 70-110 H = 652) BLOOD GAS, [id number] 21:15:10 Test Item Value Reference Range Interpretation Comments PH ARTERIAL (BEAKER) (test code = 7.39 7.35-7.45 383) PCO2 ARTERIAL (BEAKER) (test code 37 mm Hg 35-45 = 384) PO2 ARTERIAL (BEAKER) (test code 165 mm Hg 80-90 H = 385) O2 SATURATION ARTERIAL (BEAKER) 99.1 % 96.0-97.0 H (test code = 386) HCO3 ARTERIAL (BEAKER) (test code 22 mmol/L = 388) BASE EXCESS ARTERIAL (BEAKER) -2.7 mmol/L -2.0-3.0 L (test code = 387) PATIENT TEMPERATURE (BEAKER) 38.1 (test code = 1818) FIO2 (BEAKER) (test code = 1819) 36.0 POTASSIUM-STAT [id number] 21:14:48 Test Item Value Reference Range Interpretation Comments POTASSIUM (BEAKER) (test code = 4.5 meq/L 3.6-5.5 379) SODIUM NA-STAT [id number] 21:14:47 Test Item Value Reference Range Interpretation Comments SODIUM (BEAKER) (test code = 381) 136 meq/L 136-145 CALCIUM, [id number] 18:39:56 Test Item Value Reference Range Interpretation Comments CALCIUM IONIZED (BEAKER) (test 1.03 mmol/L 1.12-1.27 L code = 698) PH, BLOOD (BEAKER) (test code = 7.38 1810) BLOOD GAS, [id number] 18:39:50 Test Item Value Reference Range Interpretation [...] 21-29 = 388) BASE EXCESS ARTERIAL (BEAKER) -3.4 mmol/L -2.0-3.0 L (test code = 387) PATIENT TEMPERATURE (BEAKER) 36.6 (test code = 1818) FIO2 (BEAKER) (test code = 1819) 40.0 LACTIC ACID, [id number] 17:35:06 Test Item Value Reference Range Interpretation Comments LACTATE BLOOD ARTERIAL (2) 1.1 mmol/L 0.5-2.2 (BEAKER) (test code = 2874) It Security Project Manager ID - DBGLUCOSE-STAT [id number] 17:19:38 Test Item Value Reference Range Interpretation Comments GLUCOSE RANDOM (BEAKER) (test code 183 mg/dL 70-110 H = 652) BLOOD GAS, [id number] 17:19:37 Test Item Value Reference Range Interpretation [...] (test code = 1819) 50.0 BASIC METABOLIC [id number] 16:17:21 Test Item Value Reference Range Interpretation [...] S NOT APPLICABLE FOR DIALYSIS PATIEN TS. It Security Project Manager ID - [id number] 16:10:13 Test Item Value Reference Range Interpretation Comments PHOSPHORUS (BEAKER) (test code = 4.0 mg/dL 2.3-4.7 604) It Security Project Manager ID - [id number] 16:10:11 Test Item Value Reference Range Interpretation Comments MAGNESIUM (BEAKER) (test code = 2.1 mg/dL 1.6-2.6 627) It Security Project Manager ID - DB(CELLAVISION MANUAL DIFF)2021-10-01 16:09:40 Test [...] CONCENTRATION Adequate (CELLAVISION)(BEAKER) (test code = 3438) It Security Project Manager ID - Mirtha Carrillo comments: Slide comments:OXYGEN SATURATION, [id number] 16:08:07 Test Item Value Reference Range Interpretation Comments O2 SATURATION (MEASURED) (BEAKER) 84.9 % (test code = 1455) CBC W/PLT COUNT & AUTO [id number] 16:06:21 Test Item Value Reference Range Interpretation [...] = 413) RAD, CHEST, 1 VIEW, NON [id number] 16:06:00Reason for exam:->post cv surgeryShould this be performed at the bedside?->Yes [facility] : 1955 [...] size and contour. Postoperative findings of CABG. Bones/ Soft Tissues: No acute osseous injury. Sternotomy wires in place. Abdomen: No free air below the diaphragm. IMPRESSION:Lines and tubes as above. No pneumothorax, focal pneumonia, or pulmonary edema. Signed: Fernanda Almeida MDReport Verified Date/Time: 10/01/2021 16:06:03 Reading Location: [address] Reading Room LACTIC ACID, [id number] 16:05:33 Test Item Value Reference Range Interpretation Comments LACTATE BLOOD ARTERIAL (2) 1.2 mmol/L 0.5-2.2 (BEAKER) (test code = 2874) It Security Project Manager ID - DBHGB/HCT (H&H) - STAT [id number] 16:05:30 Test Item Value Reference Range Interpretation Comments HEMOGLOBIN (BEAKER) (test code = 10.6 GM/DL 13.0-16.8 L 410) HEMATOCRIT (BEAKER) (test code = 31.0 % 40.0-50.0 L 411) GLUCOSE-STAT [id number] 16:05:29 Test Item Value Reference Range Interpretation Comments GLUCOSE RANDOM (BEAKER) (test code 202 mg/dL 70-110 H = 652) BLOOD GAS, [id number] 16:05:17 Test Item Value Reference Range Interpretation [...] (BEAKER) (test code = 1819) 60.0 CALCIUM, [id number] 16:04:55 Test Item Value Reference Range Interpretation Comments CALCIUM IONIZED (BEAKER) (test 1.13 mmol/L 1.12-1.27 code = 698) PH, BLOOD (BEAKER) (test code = 7.30 1810) POTASSIUM-STAT [id number] 16:04:50 Test Item Value Reference Range Interpretation Comments POTASSIUM (BEAKER) (test code = 4.3 meq/L 3.6-5.5 379) SODIUM NA-STAT [id number] 16:04:49 Test Item Value Reference Range Interpretation Comments SODIUM (BEAKER) (test code = 381) 135 meq/L 136-145 L [id number] 15:59:27 Test Item Value Reference Range Interpretation Comments PARTIAL THROMBOPLASTIN TIME 31.0 seconds 22.5-36.0 (BEAKER) (test code = 760) [id number] 15:59:04 Test Item Value Reference Range Interpretation Comments FIBRINOGEN LEVEL (BEAKER) (test 355 mg/dl 225-434 code = 658) PROTHROMBIN [id number] 15:58:47 Test Item Value Reference Range Interpretation Comments PROTIME (BEAKER) 17.7 seconds 11.9-14.2 H (test code = 759) INR (BEAKER) (test 1.48 See_Comment [Automat ed message] code = 370) The system [employer] generated this result transmitted ref erence range: <=5.90. The reference range was not used to int erpret this result as normal/abnormal . RECOMMENDED COUMADIN/WARFARIN INR THERAPY RANGESSTANDARD DOSE: 2.0 - 3.0 Includes: PROPHYLAXIS for venous thrombosis, systemic embolization; TREATMENT for venous thrombosis and/or pulmonary embolus.HIGH RISK: Target INR is 2.5-3.5 for patients with mechanical heart valves.FLOW CYTOMETRY [id number] 13:39:09 Test Item Value Reference Range Interpretation Comments FLOW CYTOMETRY RESULT See Separate Report POINTER (BEAKER) (test code = 2758) FLOW CYTOMETRY AP CASE # [id number] (BEAKER) (test code = 2759) [id number] 13:19:22 Test Item Value Reference Range Interpretation Comments PARTIAL THROMBOPLASTIN TIME 33.0 seconds 22.5-36.0 (BEAKER) (test code = 760) [id number] 13:19:05 Test Item Value Reference Range Interpretation Comments FIBRINOGEN LEVEL (BEAKER) (test 350 mg/dl 225-434 code = 658) PROTHROMBIN [id number] 13:18:41 Test Item Value Reference Range Interpretation Comments PROTIME (BEAKER) 20.4 seconds 11.9-14.2 H (test code = 759) INR (BEAKER) (test 1.78 See_Comment [Automat ed message] code = 370) The system [employer] generated this result transmitted ref erence range: <=5.90. The reference range was not used to int erpret this result as normal/abnormal . RECOMMENDED COUMADIN/WARFARIN INR THERAPY RANGESSTANDARD DOSE: 2.0 - 3.0 Includes: PROPHYLAXIS for venous thrombosis, systemic embolization; TREATMENT for venous thrombosis and/or pulmonary embolus.HIGH RISK: Target INR is 2.5-3.5 for patients with mechanical heart valves.CALCIUM, [id number] 13:12:08 Test Item Value Reference Range Interpretation Comments CALCIUM IONIZED (BEAKER) (test 1.07 mmol/L 1.12-1.27 L code = 698) PH, BLOOD (BEAKER) (test code = 7.35 1810) PLATELET [id number] 13:11:41 Test Item Value Reference Range Interpretation Comments PLATELET COUNT (BEAKER) (test 172 K/CU MM 150-450 code = 756) It Security Project Manager ID - [id number]/HCT (H&H) - STAT [id number] 13:11:29 Test Item Value Reference Range Interpretation Comments HEMOGLOBIN (BEAKER) (test code = 8.9 GM/DL 13.0-16.8 L 410) HEMATOCRIT (BEAKER) (test code = 26.0 % 40.0-50.0 L 411) BLOOD GAS, [id number] 13:11:29 Test Item Value Reference Range Interpretation [...] (BEAKER) (test code = 1819) 100.0 GLUCOSE-STAT [id number] 13:11:28 Test Item Value Reference Range Interpretation Comments GLUCOSE RANDOM (BEAKER) (test code 208 mg/dL 70-110 H = 652) SODIUM NA-STAT [id number] 13:11:27 Test Item Value Reference Range Interpretation Comments SODIUM (BEAKER) (test code = 381) 133 meq/L 136-145 L POTASSIUM-STAT [id number] 13:06:25 Test Item Value Reference Range Interpretation Comments POTASSIUM (BEAKER) (test code = 4.5 meq/L 3.6-5.5 379) HGB/HCT (H&H) - STAT [id number] 12:20:34 Test Item Value Reference Range Interpretation Comments HEMOGLOBIN (BEAKER) (test code = 10.1 GM/DL 13.0-16.8 L 410) HEMATOCRIT (BEAKER) (test code = 30.0 % 40.0-50.0 L 411) SODIUM NA-STAT [id number] 12:20:33 Test Item Value Reference Range Interpretation Comments SODIUM (BEAKER) (test code = 381) 132 meq/L 136-145 L GLUCOSE-STAT [id number] 12:20:33 Test Item Value Reference Range Interpretation Comments GLUCOSE RANDOM (BEAKER) (test code 223 mg/dL 70-110 H = 652) BLOOD GAS, [id number] 12:20:32 Test Item Value Reference Range Interpretation [...] (BEAKER) (test code = 1819) 100.0 POTASSIUM-STAT [id number] 12:20:11 Test Item Value Reference Range Interpretation Comments POTASSIUM (BEAKER) (test code = 5.5 meq/L 3.6-5.5 379) POTASSIUM-STAT [id number] 12:12:03 Test Item Value Reference Range Interpretation Comments POTASSIUM (BEAKER) (test code = 6.2 meq/L 3.6-5.5 HH 379) FLOW [id number] 12:08:58Flow Cytometry Report Case: [id number] Authorizing Provider: Benedict Pelayo MD Collected: 09/29/2021 05:19 AM Ordering Location: [address] Received: 10/01/2021 07:19 AM Service Pathologist: Guillermo Wilks MD Specimen: Other PERIPHERAL BLOOD, FLOW CYTOMETRY:- NO ABERRANT T LYMPHOCYTEPOPULATION-NO MONOTYPIC B LYMPHOCYTE POPULATION-NO CIRCULATING BLASTS [id number] year old man with leukocytosisPeripheral BloodCD8, surface-[place], CD56, surface-Lambda, CD5, CD19, CD10, CD3, CD20, CD4, CD45, CD14, CD13, CD33, CD117, FV65Qbprkxsc Viability: 85.2% Number of Events Acquired: 58141 The following populations are identified: Blasts: No [...] developed and their performance characteristics determined by [facility] They have not been cleared or approved by the U.S. Foodand Drug Administration. The FDA has determined that such clearance or approval is not necessary. Itshould not be regarded as investigational or for research. This laboratory is certified under the Clinical Laboratory Improvement Amendments of 1988 ("CLIA") as qualified to perform high-complexity clinical testing.[facility], Department of Pathology, [address] [place] [address], [facility], [facility] of [facility], [address] [place] [address], XVX/HCT (H&H) - STAT [id number] 12:03:39 Test Item Value Reference Range Interpretation Comments HEMOGLOBIN (BEAKER) (test code = 9.5 GM/DL 13.0-16.8 L 410) HEMATOCRIT (BEAKER) (test code = 28.0 % 40.0-50.0 L 411) GLUCOSE-STAT [id number] 12:03:38 Test Item Value Reference Range Interpretation Comments GLUCOSE RANDOM (BEAKER) (test code 244 mg/dL 70-110 H = 652) SODIUM NA-STAT [id number] 12:03:37 Test Item Value Reference Range Interpretation Comments SODIUM (BEAKER) (test code = 381) 131 meq/L 136-145 L BLOOD GAS, [id number] 12:03:36 Test Item Value Reference Range Interpretation [...] (BEAKER) (test code = 1819) 85.0 POTASSIUM-STAT [id number] 11:30:43 Test Item Value Reference Range Interpretation Comments POTASSIUM (BEAKER) (test code = 6.0 meq/L 3.6-5.5 HH 379) GLUCOSE-STAT [id number] 11:29:50 Test Item Value Reference Range Interpretation Comments GLUCOSE RANDOM (BEAKER) (test code 226 mg/dL 70-110 H = 652) HGB/HCT (H&H) - STAT [id number] 11:29:50 Test Item Value Reference Range Interpretation Comments HEMOGLOBIN (BEAKER) (test code = 8.5 GM/DL 13.0-16.8 L 410) HEMATOCRIT (BEAKER) (test code = 25.0 % 40.0-50.0 L 411) SODIUM NA-STAT [id number] 11:29:49 Test Item Value Reference Range Interpretation Comments SODIUM (BEAKER) (test code = 381) 132 meq/L 136-145 L BLOOD GAS, [id number] 11:29:48 Test Item Value Reference Range Interpretation [...] (test code = 1819) 70.0 BLOOD GAS, [id number] 11:07:15 Test Item Value Reference Range Interpretation [...] = 1819) 80.0 HGB/HCT (H&H) - STAT [id number] 11:03:29 Test Item Value Reference Range Interpretation Comments HEMOGLOBIN (BEAKER) (test code = 8.8 GM/DL 13.0-16.8 L 410) HEMATOCRIT (BEAKER) (test code = 26.0 % 40.0-50.0 L 411) GLUCOSE-STAT [id number] 11:03:28 Test Item Value Reference Range Interpretation Comments GLUCOSE RANDOM (BEAKER) (test code 119 mg/dL 70-110 H = 652) BLOOD GAS, [id number] 11:03:27 Test Item Value Reference Range Interpretation [...] (test code = 1819) 100.0 SODIUM NA-STAT [id number] 11:03:27 Test Item Value Reference Range Interpretation Comments SODIUM (BEAKER) (test code = 381) 127 meq/L 136-145 L POTASSIUM-STAT [id number] 11:02:40 Test Item Value Reference Range Interpretation Comments POTASSIUM (BEAKER) (test code = 4.7 meq/L 3.6-5.5 379) HEMOGLOBIN [id number] 08:40:42 Test Item Value Reference Range Interpretation Comments HEMOGLOBIN A1C (BEAKER) (test code = 7.1 % 4.3-6.1 H 368) SODIUM NA-STAT [id number] 08:13:50 Test Item Value Reference Range Interpretation Comments SODIUM (BEAKER) (test code = 381) 133 meq/L 136-145 L HGB/HCT (H&H) - STAT [id number] 08:13:44 Test Item Value Reference Range Interpretation Comments HEMOGLOBIN (BEAKER) (test code = 12.6 GM/DL 13.0-16.8 L 410) HEMATOCRIT (BEAKER) (test code = 37.0 % 40.0-50.0 L 411) GLUCOSE-STAT [id number] 08:13:37 Test Item Value Reference Range Interpretation Comments GLUCOSE RANDOM (BEAKER) (test code 119 mg/dL 70-110 H = 652) BLOOD GAS, [id number] 08:13:36 Test Item Value Reference Range Interpretation [...] (BEAKER) (test code = 1819) 100.0 POTASSIUM-STAT [id number] 08:05:37 Test Item Value Reference Range Interpretation Comments POTASSIUM (BEAKER) (test code = 4.2 meq/L 3.6-5.5 379) [id number] 02:23:53 Test Item Value Reference Range Interpretation Comments PARTIAL THROMBOPLASTIN TIME 27.0 seconds 22.5-36.0 (BEAKER) (test code = 760) PROTHROMBIN [id number] 02:23:10 Test Item Value Reference Range Interpretation Comments PROTIME (BEAKER) 14.4 seconds 11.9-14.2 H (test code = 759) INR (BEAKER) (test 1.14 See_Comment [Automat ed message] code = 370) The system [employer] generated this result transmitted ref erence range: <=5.90. The reference range was not used to int erpret this result as normal/abnormal . RECOMMENDED COUMADIN/WARFARIN INR THERAPY RANGESSTANDARD DOSE: 2.0 - 3.0 Includes: PROPHYLAXIS for venous thrombosis, systemic embolization; TREATMENT for venous thrombosis and/or pulmonary embolus.HIGH RISK: Target INR is 2.5-3.5 for patients with mechanical heart valves.[id number] 02:22:14 Test Item Value Reference Range Interpretation Comments MAGNESIUM (BEAKER) (test code = 2.1 mg/dL 1.6-2.6 627) It Security Project Manager ID - DBBASIC METABOLIC [id number] 02:22:13 Test Item Value Reference Range Interpretation [...] S NOT APPLICABLE FOR DIALYSIS PATIEN TS. It Security Project Manager ID - [id number] (HEMOGRAM ONLY)2021-10-01 01:55:12 Test [...] 0-0 (BEAKER) (test code = 413) POCT-GLUCOSE [id number] 21:44:59 Test Item Value Reference Range Interpretation Comments POC-GLUCOSE METER 137 mg/dL 70-110 H : TESTED A T [facility] 6720 (BEAKER) (test code = [facility], 1538) [address]: It Security Project Manager/Techni hien ID = [id number] for Clemente Torres POCT-GLUCOSE [id number] 16:53:17 Test Item Value Reference Range Interpretation Comments POC-GLUCOSE METER 153 mg/dL 70-110 H : TESTED A T [facility] 6720 (BEAKER) (test code = [facility], 1538) [address]: It Security Project Manager/Techni hien ID = [id number] for Mahsa Casanova LIPID [id number] 11:17:37 Test Item Value Reference Range Interpretation Comments TRIGLYCERIDES (BEAKER) (test code = 67 mg/dL 540) CHOLESTEROL (BEAKER) (test code = 180 mg/dL 631) HDL CHOLESTEROL (BEAKER) (test code 40 mg/dL = 976) LDL CHOLESTEROL CALCULATED (BEAKER) 127 mg/dL (test code = 633) Triglyceride Reference Range: Low Risk <150 Borderline 150-199 High Risk 200- 499 Very High Risk >=500Cholesterol Reference Range: Low Risk <200 Borderline 200-239 High Risk >240HDL Cholesterol Reference Range: Low Risk >=60 High Risk <40LDL Cholesterol Reference Range: Optimal <100 Near Optimal 100-129 Borderline 130-159 High 160-189 Very High >=190 It Security Project Manager ID - DBCOMPREHENSIVE METABOLIC [id number] 11:17:36 Test Item Value Reference Range Interpretation [...] S NOT APPLICABLE FOR DIALYSIS PATIEN TS. It Security Project Manager ID - DBPOCT-GLUCOSE [id number] 11:06:28 Test Item Value Reference Range Interpretation Comments POC-GLUCOSE METER 125 mg/dL 70-110 H : TESTED A T [facility] 6720 (BEAKER) (test code = [facility], 1538) [address]: It Security Project Manager/Techni hien ID = [id number] for Re yes, Mahsa CBC W/PLT COUNT & AUTO [id number] 08:52:55 Test Item Value Reference Range Interpretation [...] PERCENT (BEAKER) (test code = 2801) POCT-GLUCOSE [id number] 07:22:12 Test Item Value Reference Range Interpretation Comments POC-GLUCOSE METER 104 mg/dL 70-110 : TESTED A T [facility] 6720 (BEAKER) (test code = [facility], 1538) [address]: It Security Project Manager/Techni hien ID = [id number] for Re yes, Mahsa [id number] 07:00:59 Test Item Value Reference Range Interpretation Comments MAGNESIUM (BEAKER) (test code = 2.2 mg/dL 1.6-2.6 627) It Security Project Manager ID - DBBASIC METABOLIC [id number] 07:00:58 Test Item Value Reference Range Interpretation [...] S NOT APPLICABLE FOR DIALYSIS PATIEN TS. It Security Project Manager ID - DBCBC (HEMOGRAM ONLY)2021-09-30 06:27:19 Test [...] 0-0 (BEAKER) (test code = 413) POCT-GLUCOSE [id number] 23:29:14 Test Item Value Reference Range Interpretation Comments POC-GLUCOSE METER 156 mg/dL 70-110 H : TESTED A T [facility] 6720 (BEAKER) (test code = [facility], [facility]8) [address]: It Security Project Manager/Techni hien ID = [id number] for RE ROSANNA BELLAMY POCT-GLUCOSE [id number] 16:22:44 Test Item Value Reference Range Interpretation Comments POC-GLUCOSE METER 159 mg/dL 70-110 H : TESTED A T [facility] 6720 (BEAKER) (test code = [facility], 1538) 71192: It Security Project Manager/Techni hien ID = [id number] for Re yes, Mahsa POCT-GLUCOSE [id number] 11:38:23 Test Item Value Reference Range Interpretation Comments POC-GLUCOSE METER 166 mg/dL 70-110 H : TESTED A T [facility] 6720 (BEAKER) (test code = [facility], 1538) [id number]: It Security Project Manager/Techni hien ID = [id number] for Re yes, Mahsa POCT-GLUCOSE [id number] 07:28:01 Test Item Value Reference Range Interpretation Comments POC-GLUCOSE METER 115 mg/dL 70-110 H : TESTED A T [facility] 6720 (BEAKER) (test code = [facility], 1538) 69029: It Security Project Manager/Techni hien ID = [id number] for Re yes, Mahsa BASIC METABOLIC [id number] 06:12:14 Test Item Value Reference Range Interpretation [...] S NOT APPLICABLE FOR DIALYSIS PATIEN TS. It Security Project Manager ID - YOMI [id number] 06:12:14 Test Item Value Reference Range Interpretation Comments MAGNESIUM (BEAKER) (test code = 2.3 mg/dL 1.6-2.6 627) It Security Project Manager ID - YOMI [facility] (HEMOGRAM ONLY)2021-09-29 05:48:05 [...] 0-0 (BEAKER) (test code = 413) POCT-GLUCOSE [id number] 21:35:44 Test Item Value Reference Range Interpretation Comments POC-GLUCOSE METER 142 mg/dL 70-110 H : [facility] (BEAKER) (test code = [facility], 1538) 75344: It Security Project Manager/Techni hien ID = [id number] for UG TOMMY CAVANAUGH POCT-GLUCOSE [id number] 16:44:53 Test Item Value Reference Range Interpretation Comments POC-GLUCOSE METER 132 mg/dL 70-110 H : TESTED A T [facility] 6720 (BEAKER) (test code = [facility], 1538) 99464: It Security Project Manager/Techni hien ID = [id number] for Mahsa Casanova SARS-COV2/RT-PCR ([facility])2021-09-28 12:12:40 Test Item Value Reference Range Interpretation Comments SARS-COV2/RT-PCR (test Negative Not Detected, Negative, code = 5317807) See external report for linked test SARS-COV-2 PERFORMING LAB [facility] (test code = 7242501) Negative result for this test determines that [...] justifying the authorization of the emergency use ofin vitro diagnostic tests for detection and/or diagnosis of COVID-19 is terminated under Section 564(b)(2) of the Act or the EUA is revoked under Section 564(g) of the Act.Fact Sheet for Healthcare Prov iders:https://www.[employer]/sites/default/files/product/documents/Fact_Sheet_HC _Jojcurilj_Wylg_LJRP-PtD-0.pdfFact Sheet for Healthcare Patients:https://www.[employer]/sites/default/files/product/docume nts/Cswf_Psoed_Imgzatlt_Oqkn_FCKG-FrF-5.pdfPerforming Laboratory:[address] [address]FGEZ-HJEYCKL METER 2021-09-28 11:35:57 Test Item Value Reference Range Interpretation Comments POC-GLUCOSE METER 121 mg/dL 70-110 H : TESTED A T [facility] 6720 (BEAKER) (test code = [facility], 1538) 24789: It Security Project Manager/Techni hien ID = [id number] for [place] AZURUME, JEFFERY POCT-GLUCOSE [id number] 08:05:13 Test Item Value Reference Range Interpretation Comments POC-GLUCOSE METER 158 mg/dL 70-110 H : TESTED A T [facility] 6720 (BEAKER) (test code = [facility], 1538) 79875: It Security Project Manager/Techni hien ID = [id number] for [place] AZURUME, JEFFERY [id number] 06:06:15 Test Item Value Reference Range Interpretation Comments MAGNESIUM (BEAKER) (test code = 2.1 mg/dL 1.6-2.6 627) It Security Project Manager ID - DESIREE WBASIC METABOLIC [id number] 06:06:14 Test Item Value Reference Range Interpretation [...] S NOT APPLICABLE FOR DIALYSIS PATIEN TS. It Security Project Manager ID - DESIREE [facility] (HEMOGRAM ONLY)2021-09-28 05:33:19 Test Item Value Reference [...] 0-0 (BEAKER) (test code = 413) POCT-GLUCOSE [id number] 21:06:35 Test Item Value Reference Range Interpretation Comments POC-GLUCOSE METER 173 mg/dL 70-110 H : TESTED A T [facility] 6720 (BEAKER) (test code = [facility], [facility]8) 55035: It Security Project Manager/Techni hien ID = [id number] for TOMMY KRISHNA POCT-GLUCOSE [id number] 17:00:19 Test Item Value Reference Range Interpretation Comments POC-GLUCOSE METER 232 mg/dL 70-110 H : TESTED A T [facility] 6720 (BEAKER) (test code = [facility], 1538) 15840: It Security Project Manager/Techni hien ID = [id number] for Max [place] POCT-GLUCOSE [id number] 11:28:53 Test Item Value Reference Range Interpretation Comments POC-GLUCOSE METER 110 mg/dL 70-110 : TESTED A T [facility] 6720 (BEAKER) (test code = [facility], [facility]8) 72340: It Security Project Manager/Techni hien ID = [id number] for Max [place] POCT-GLUCOSE [id number] 08:27:37 Test Item Value Reference Range Interpretation Comments POC-GLUCOSE METER 244 mg/dL 70-110 H : TESTED A T [facility] 6720 (BEAKER) (test code = [facility], [facility]8) 03563: It Security Project Manager/Techni hien ID = [id number] for Max [place] [id number] 06:18:22 Test Item Value Reference Range Interpretation Comments MAGNESIUM (BEAKER) (test code = 2.2 mg/dL 1.6-2.6 627) It Security Project Manager ID - YOMI MBASIC METABOLIC [id number] 06:18:21 Test Item Value Reference Range Interpretation [...] S NOT APPLICABLE FOR DIALYSIS PATIEN TS. It Security Project Manager ID - YOMI MCBC W/PLT COUNT & AUTO [id number] 05:51:19 Test Item Value Reference Range Interpretation [...] PERCENT (BEAKER) (test code = 2801) POCT-GLUCOSE [id number] 21:32:16 Test Item Value Reference Range Interpretation Comments POC-GLUCOSE METER 149 mg/dL 70-110 H : TESTED A T [facility] 6720 (BEAKER) (test code = [facility], [facility]8) 66627: It Security Project Manager/Techni hien ID = [id number] for TOMMY KRISHNA POCT-GLUCOSE [id number] 16:38:02 Test Item Value Reference Range Interpretation Comments POC-GLUCOSE METER 163 mg/dL 70-110 H : TESTED A T [facility] 6720 (BEAKER) (test code = [facility], [facility]8) 75924: It Security Project Manager/Techni hien ID = [id number] for AR GUETA, TATIANA POCT-GLUCOSE [id number] 12:15:17 Test Item Value Reference Range Interpretation Comments POC-GLUCOSE METER 214 mg/dL 70-110 H : TESTED A T [facility] 6720 (BEAKER) (test code = [facility], 1538) 21689: It Security Project Manager/Techni hien ID = [id number] for AR GUETA, TATIANA POCT-GLUCOSE [id number] 07:37:30 Test Item Value Reference Range Interpretation Comments POC-GLUCOSE METER 108 mg/dL 70-110 : TESTED A T [facility] 6720 (BEAKER) (test code = [facility], 1538) 21498: It Security Project Manager/Techni hien ID = [id number] for AR GUETA, TATIANA [id number] 05:22:24 Test Item Value Reference Range Interpretation Comments MAGNESIUM (BEAKER) (test code = 2.2 mg/dL 1.6-2.6 627) It Security Project Manager ID - YOMI MBASIC METABOLIC [id number] 05:22:22 Test Item Value Reference Range Interpretation [...] S NOT APPLICABLE FOR DIALYSIS PATIEN TS. It Security Project Manager ID - YOMI [id number] 05:19:52 Test Item Value Reference Range Interpretation [...] WBC 0-0 (BEAKER) (test code = 413) [id number] 22:51:50 Test Item Value Reference Range Interpretation Comments PARTIAL THROMBOPLASTIN TIME 73.4 seconds 22.5-36.0 H (BEAKER) (test code = 760) POCT-GLUCOSE [id number] 21:29:21 Test Item Value Reference Range Interpretation Comments POC-GLUCOSE METER 119 mg/dL 70-110 H : TESTED A T [facility] 6720 (BEAKER) (test code = [facility], 1538) 55266: It Security Project Manager/Techni hien ID = [id number] for Ri vera (contract), Via nna POCT-GLUCOSE [id number] 16:39:53 Test Item Value Reference Range Interpretation Comments POC-GLUCOSE METER 138 mg/dL 70-110 H : TESTED A T [facility] 6720 (BEAKER) (test code = [facility], 1538) 57692: It Security Project Manager/Techni hien ID = [id number] for BETZAIDA HECTOR TATIANA PLATELET AGGREGATION: FUNCTION [id number] 16:21:14 Test Item Value Reference Range Interpretation Comments [id number] Darby Escobedo MD (BEAKER) (test code = (electronic signature) 6151) PLATELET COUNT AGG 246 K/CU MM 150-450 (BEAKER) (test code = 3606) ADP (BEAKER) (test code 12 % 62-100 L = 4654) PLATELET RICH 215 k/cu mm 200-300 PLASMA(BEAKER) (test code = 2134) PLATELET FUNCTION Pattern of SCREEN INTERPRETATION disaggregation present (BEAKER) (test code = with ADP which may be 4655) characteristic of P2Y12 inhibitor effect. Correlation with medication history is required. Platelet Function Screen results may be falsely low with platelet counts<75,000/cu mm.It Security Project Manager ID- [id number] 14:25:04 Test Item Value Reference Range Interpretation Comments PARTIAL THROMBOPLASTIN TIME 60.0 seconds 22.5-36.0 H (BEAKER) (test code = 760) POCT-GLUCOSE [id number] 11:30:50 Test Item Value Reference Range Interpretation Comments POC-GLUCOSE METER 127 mg/dL 70-110 H : TESTED A T [facility] 6720 (BEAKER) (test code = [facility], 1538) 47069: It Security Project Manager/Techni hien ID = [id number] for TATIANA MEJIA POCT-GLUCOSE [id number] 07:37:38 Test Item Value Reference Range Interpretation Comments POC-GLUCOSE METER 124 mg/dL 70-110 H : TESTED A T [facility] 6720 (BEAKER) (test code = [facility] [employer] [facility], 1538) 94077: It Security Project Manager/Techni hien ID = [id number] for TATIANA MEJIA BASIC METABOLIC [id number] 05:44:53 Test Item Value Reference Range Interpretation [...] S NOT APPLICABLE FOR DIALYSIS PATIEN TS. It Security Project Manager ID - YOMI [id number] 05:44:52 Test Item Value Reference Range Interpretation Comments MAGNESIUM (BEAKER) 2.2 mg/dL 1.6-2.6 Specimen slightly (test code = 627) hemolyzed It Security Project Manager ID - YOMI [id number] 05:26:27 Test Item Value Reference Range Interpretation [...] WBC 0-0 (BEAKER) (test code = 413) [id number] 17:53:10 Test Item Value Reference Range Interpretation Comments PARTIAL THROMBOPLASTIN TIME 80.4 seconds 22.5-36.0 H (BEAKER) (test code = 760) POCT-GLUCOSE [id number] 16:32:13 Test Item Value Reference Range Interpretation Comments POC-GLUCOSE METER 130 mg/dL 70-110 H : TESTED A T [facility] 6720 (BEAKER) (test code = [place], 1538) 93030: It Security Project Manager/Techni hien ID = [id number] for TATIANA MEJIA [id number] 11:10:40 Test Item Value Reference Range Interpretation Comments PARTIAL THROMBOPLASTIN TIME 49.7 seconds 22.5-36.0 H (BEAKER) (test code = 760) HEMOGLOBIN [id number] 07:43:54 Test Item Value Reference Range Interpretation Comments HEMOGLOBIN A1C (BEAKER) (test code = 6.7 % 4.3-6.1 H 368) BASIC METABOLIC [id number] 07:00:00 Test Item Value Reference Range Interpretation [...] S NOT APPLICABLE FOR DIALYSIS PATIEN TS. It Security Project Manager ID - YOMI MSpecimen slightly [id number] 06:59:59 Test Item Value Reference Range Interpretation Comments MAGNESIUM (BEAKER) 2.0 mg/dL 1.6-2.6 Specimen slightly (test code = 627) hemolyzed It Security Project Manager ID - YOMI [id number] 06:25:07 Test Item Value Reference Range Interpretation [...] = 413) RAD, CHEST, 1 VIEW, NON [id number] 01:18:00Reason for exam:->coughShould this be performed at the bedside?->Yes [facility] : 1955 Sex: MFINAL REPORT EXAM/TECHNIQUE: Single view frontal radiograph of the chest. INDICATION: Cough COMPARISON: None. FINDINGS: Devices/Objects: None. Lungs: No focal consolidation. No pleural effusion. No pneumothorax. Heart/Mediastinum: No cardiomegaly. No interstitial thickening. Osseous: No acute osseous process. No suspicious osseous lesion. Upper abdomen: Unremarkable. Impression: No acute cardiopulmonary process. Signed: Ron Sun MDReport Verified Date/Time: 09/24/2021 01:18:54 POCT-GLUCOSE [id number] 23:07:51 Test Item Value Reference Range Interpretation Comments POC-GLUCOSE METER 189 mg/dL 70-110 H : TESTED A T [facility] 6720 (BEAKER) (test code = [facility], 1538) 44283: It Security Project Manager/Techni hien ID = [id number] for GrewalDaraEle (student)Oni URINALYSIS W/ REFLEX URINE [id number] 18:34:31 Test Item Value Reference Range Interpretation [...] = 1521) SOURCE(BEAKER) (test code = 2795) It Security Project Manager ID - [auto]It Security Project Manager ID - techHIGH SENSITIVITY TROPONIN [id number] 14:42:17 Test Item Value Reference Range Interpretation Comments HIGH SENSITIVITY 2005 pg/ml See_Comment HH [Automated message] TROPONIN I (test code The sy stem which = [id number]) generated this result transmitted ref erence range: <=35. Th e reference range was not used to int erpret this result as normal/abnormal . It Security Project Manager ID - YOMI MThe MEASURER MACHINE STAT High Sensitivity Troponin-I results should be used in conjunction with other diagnostic information such as ECG, clinical observations and information, and patient symptoms to aid in the diagnosis of [place].[id number] 14:38:38 Test Item Value Reference Range Interpretation Comments ACTIVATED CLOTTING TIME 120 sec : 74 -137 seconds, (BEAKER) (test code = Baseli ne: TESTED AT 441) [facility] [address] [place], [address]: It Security Project Manager/Techni hien ID = [id number] for CALLUM CARRINGTON B-TYPE NATRIURETIC FACTOR (BNP)2021-09-23 14:33:42 Test Item Value Reference Range Interpretation Comments B-TYPE NATRIURETIC PEPTIDE (BEAKER) 155 pg/mL 0-100 H (test code = 700) It Security Project Manager ID - YOMI MCBC (HEMOGRAM ONLY)2021-09-23 14:31:53 [...] WBC 0-0 (BEAKER) (test code = 413) LIPID [id number] 14:25:42 Test Item Value Reference Range Interpretation Comments TRIGLYCERIDES (BEAKER) (test code = 77 mg/dL 540) CHOLESTEROL (BEAKER) (test code = 236 mg/dL 631) HDL CHOLESTEROL (BEAKER) (test code 56 mg/dL = 976) LDL CHOLESTEROL CALCULATED (BEAKER) 165 mg/dL (test code = 633) Triglyceride Reference Range: Low Risk <150 Borderline 150-199 High Risk 200- 499 Very High Risk >=500Cholesterol Reference Range: Low Risk <200 Borderline 200-239 High Risk >240HDL Cholesterol Reference Range: Low Risk >=60 High Risk <40LDL Cholesterol Reference Range: Optimal <100 Near Optimal 100-129 Borderline 130-159 High 160-189 Very High >=190 It Security Project Manager ID - YOMI MCOMPREHENSIVE METABOLIC [id number] 14:25:42 Test Item Value Reference Range Interpretation [...] S NOT APPLICABLE FOR DIALYSIS PATIEN TS. It Security Project Manager ID - YOMI [id number]/[id number] 14:13:19 Test Item Value Reference Range Interpretation Comments PROTIME (BEAKER) (test 14.0 seconds 11.9-14.2 code = 759) INR (BEAKER) (test 1.10 See_Comment [Automat ed code = 370) message] The sy stem which generated this result transmitted reference range : <=5.90. The reference range was not used to interpret this result as normal/abnormal . PARTIAL THROMBOPLASTIN 65.3 seconds 22.5-36.0 H TIME (BEAKER) (test code = 760) RECOMMENDED COUMADIN/WARFARIN INR THERAPY RANGESSTANDARD DOSE: 2.0 - 3.0 Includes: PROPHYLAXIS for venous thrombosis, systemic embolization; TREATMENT for venous thrombosis and/or pulmonary embolus.HIGH RISK: Target INR is 2.5-3.5 for patients with mechanical heart valves.CHEM [id number] 14:24:00 Test Item Value Reference Range Interpretation Comments Glucose Lvl (test code = Glucose Lvl) 95 70-99 [facility] [employer] [id number] 14:24:00 Test Item Value Reference Range Interpretation Comments BUN (test code = BUN) 17 7-22 [facility] [employer] [id number] 14:24:00 Test Item Value Reference Range Interpretation Comments Creatinine Lvl (test code = Creatinine 0.95 0.50-1.40 Lvl) [facility]2020-10-23 14:24:00 Test Item Value Reference Range Interpretation Comments Sodium Lvl (test code = Sodium Lvl) 142 135-145 [facility]2020-10-23 14:24:00 Test Item Value Reference Range Interpretation Comments Potassium Lvl (test code = Potassium 4.5 3.5-5.1 Lvl) [facility]2020-10-23 14:24:00 Test Item Value Reference Range Interpretation Comments Chloride Lvl (test code = Chloride Lvl) 111 95-109 [facility]2020-10-23 14:24:00 Test Item Value Reference Range Interpretation Comments CO2 (test code = CO2) 29 24-32 [place] [id number] 14:24:00 Test Item Value Reference Range Interpretation Comments Calcium Lvl (test code = Calcium Lvl) 8.6 8.5-10.5 [facility]2020-10-23 14:24:00 Test Item Value Reference Range Interpretation Comments AGAP (test code = AGAP) 6.5 10.0-20.0 [place] [id number] 14:24:00 Test Item Value Reference Range Interpretation Comments eGFR (test code = eGFR) 83 [facility] CenterVvrqbakZBLRTCHVIL1089-44-68 14:24:00 Test Item Value Reference Range Interpretation Comments WBC (test code = WBC) 7.9 3.7-10.4 [place] [id number] 14:24:00 Test Item Value Reference Range Interpretation Comments RBC (test code = RBC) 4.89 4.70-6.10 [place] [address]-10-23 14:24:00 Test Item Value Reference Range Interpretation Comments Hgb (test code = Hgb) 14.5 14.0-18.0 [place] [address]-10-23 14:24:00 Test Item Value Reference Range Interpretation Comments Hct (test code = Hct) 43.8 42.0-54.0 [place] [address]-10-23 14:24:00 Test Item Value Reference Range Interpretation Comments MCV (test code = MCV) 89.5 80.0-94.0 [place] [address]-10-23 14:24:00 Test Item Value Reference Range Interpretation Comments MCH (test code = MCH) 29.6 pg 27.0-31.0 [facility] CenterRlkzkbkQTGDNEWFCG2630-43-56 14:24:00 Test Item Value Reference Range Interpretation Comments MCHC (test code = MCHC) 33.0 32.0-36.0 [facility] CenterFgrrfovRIACVJLXTS8286-18-41 14:24:00 Test Item Value Reference Range Interpretation Comments RDW (test code = RDW) 13.4 11.5-14.5 [facility] CenterOddlyukJTXLFZRZZP8519-60-28 14:24:00 Test Item Value Reference Range Interpretation Comments Platelet (test code = Platelet) 230 133-450 [facility] CenterOadvorbNSNXZMFIFZ6743-24-27 14:24:00 Test Item Value Reference Range Interpretation Comments MPV (test code = MPV) 9.0 7.4-10.4 [place] 621530-10-23 14:24:00 Test Item Value Reference Range Interpretation Comments PT (test code = PT) 13.1 s 12.0-14.7 [facility] CenterDiuanqlFYDVVVPRSU2687-02-75 14:24:00 Test Item Value Reference Range Interpretation Comments INR (test code = INR) 0.99 1 0.85-1.17 [facility] CenterCepgszqSYLWZMZZMU4647-19-00 14:24:00 Test Item Value Reference Range Interpretation Comments PTT (test code = PTT) 28.2 s 22.9-35.8 [place] [address]-10-23 14:24:00 Test Item Value Reference Range Interpretation Comments Segs (test code = Segs) 55.6 45.0-75.0 [facility] CenterKlwqfdpQBHIIJACPB7709-33-56 14:24:00 Test Item Value Reference Range Interpretation Comments Lymphocytes (test code = Lymphocytes) 29.3 20.0-40.0 [place] [address]-10-23 14:24:00 Test Item Value Reference Range Interpretation Comments Monocytes (test code = Monocytes) 10.6 2.0-12.0 [place] [address]-10-23 14:24:00 Test Item Value Reference Range Interpretation Comments Eosinophils (test code = 4.0 See_Comment [A utomated message] The Eosinophils) system which ge nerated this result tra nsmitted reference range : <=4.0. The reference r christelle was not used to int erpret this result as normal/abnormal . [facility] CenterRkteagxXKHPRBOUVC0031-96-56 14:24:00 Test Item Value Reference Range Interpretation Comments Basophils (test code = 0.5 See_Comment [Aut omated message] The Basophils) system which ge nerated this result tra nsmitted reference range : <=1.0. The reference r christelle was not used to int erpret this result as normal/abnormal . [facility] CenterPvtqporSAWSHIPOME8881-79-05 14:24:00 Test Item Value Reference Range Interpretation Comments Neutrophils # (test code = Neutrophils 4.4 1.5-8.1 #) [facility] CenterWainbqtBPKBPSEFJI4591-86-67 14:24:00 Test Item Value Reference Range Interpretation Comments Lymphocytes # (test code = Lymphocytes 2.3 1.0-5.5 #) [facility] CenterZrpmnwhWSJXJMEKSS2696-12-96 14:24:00 Test Item Value Reference Range Interpretation Comments Monocytes # (test code 0.8 See_Comment [Aut omated message] The = Monocytes #) system which generated this result tra nsmitted reference range : <=0.8. The reference r christelle was not used to int erpret this result as normal/abnormal . [facility] CenterJdimhoiTTOSPRQHXG5878-95-76 14:24:00 Test Item Value Reference Range Interpretation Comments Eosinophils # (test code 0.3 See_Comment [A utomated message] The = Eosinophils #) system whic h generated this result tra nsmitted reference range : <=0.5. The reference r christelle was not used to int erpret this result as normal/abnormal . [facility] CenterFkaabfxYCHYIRDSPV2462-32-91 14:24:00 Test Item Value Reference Range Interpretation Comments Coronavirus (COVID-19) Not Detected ARA (test code = *NA*(08/25/20 9:24 Coronavirus (COVID-19) AM) ARA) [facility] AND [id number] 14:23:00 Test Item Value Reference Range Interpretation Comments POC UA Color (test Yellow *NA*(08/18/20 code = POC UA Color) 9:23 AM) [facility] AND [id number] 14:23:00 Test Item Value Reference Range Interpretation Comments POC UA Turbidity (test Clear *NA*(08/18/20 code = POC UA Turbidity) 9:23 AM) [facility] [id number] 14:23:00 Test Item Value Reference Range Interpretation Comments POC UA SG (test code = >=1.030 *ABN*(08/18/20 POC UA SG) 9:23 AM) [facility] [id number] 14:23:00 Test Item Value Reference Range Interpretation Comments POC UA pH (test code = POC UA pH) 6.0 1 5.0-8.0 [facility] [id number] 14:23:00 Test Item Value Reference Range Interpretation Comments POC UA Prot (test code = POC Negative mg/dL UA Prot) [facility] [id number] 14:23:00 Test Item Value Reference Range Interpretation Comments POC UA Glu (test code = POC UA Negative mg/dL Glu) [facility] [id number] 14:23:00 Test Item Value Reference Range Interpretation Comments POC UA Ket (test code = POC UA Negative mg/dL Ket) [facility] [id number] 14:23:00 Test Item Value Reference Range Interpretation Comments POC UA Bili (test Negative *NA*(08/18/20 code = POC UA Bili) 9:23 AM) [facility] [id number] 14:23:00 Test Item Value Reference Range Interpretation Comments POC UA Bld (test code Negative *NA*(08/18/20 = POC UA Bld) 9:23 AM) [facility] [id number] 14:23:00 Test Item Value Reference Range Interpretation Comments POC UA Uro (test code = POC UA Uro) 1.0 0.1-1.0 [facility] [id number] 14:23:00 Test Item Value Reference Range Interpretation Comments POC UA Nit (test code Negative *NA*(08/18/20 = POC UA Nit) 9:23 AM) [facility] [id number] 14:23:00 Test Item Value Reference Range Interpretation Comments POC UA LeukEst (test Negative *NA*(08/18/20 code = POC UA LeukEst) 9:23 AM) [facility] [place]
[2022-11-12] MEDS ORDERED: IPRATROPIUM BROM 0.5MG/2.5ML ONE (11:25)
[2022-11-12] MEDS ORDERED: LEVALBUTEROL 1.25 MG/3 ML NEB ONE (11:25)
--- NOTE | 2022-11-12 12:18 | RAD REPORT ---
EXAM DESCRIPTION: Yony Parham And Jade (2 Views)11/12/2022 12:00 pm CLINICAL HISTORY: Cough COMPARISON: 2020 FINDINGS: The lungs appear clear of acute infiltrate. The heart is normal size. Postsurgical change s involve chest IMPRESSION: No acute abnormalities displayed
--- NOTE | 2022-11-12 12:40 | ER ---
Nurse's Notes [facility] Name: Luis Meza Age: 67 yrs Sex: Male : 1955 Arrival Date: 11/12/2022 Time: 09:49 Bed 13 Private MD: Lizett Rapp Diagnosis: Influenza due to identified novel influenza A virus Presentation: 11/12 09:55 Chief complaint: Patient states: Flu + 5 days ago, on tamiflu. Still has ll1 cough/congestion, sore throat x 14 days. L sided CP with cough. Coronavirus screen: Vaccine status: Patient reports receiving the 2nd dose of the covid vaccine. Client denies travel out of the [place] in the last 14 days. chills, congestion, cough unrelated to allergies, fatigue, fever, headache, Client presents with at least one sign or symptom that may indicate coronavirus-19. Standard/surgical mask placed on the client. Ebola Screen: Patient denies travel to an Ebola-affected area in the 21 days before illness onset. Resp Distress? Mild respiratory distress is noted. Initial Sepsis Screen: Does the patient meet any 2 criteria? No. Patient's initial sepsis screen is negative. Does the patient have a suspected source of infection? Yes: Productive cough/pneumonia. Risk Assessment: Do you want to hurt yourself or someone else? Patient reports no desire to harm self or others. Onset of symptoms was October 29, 2022. 09:55 Method Of Arrival: Ambulatory [facility] 09:55 Acuity: JORDEN 3 ll1 Triage Assessment: 09:58 General: Appears uncomfortable, ill, Behavior is calm, cooperative, appropriate for 1 age. Pain: Complains of pain in chest Pain currently is 5 out of 10 on a pain scale. EENT: Reports nasal congestion pain when swallowing. Respiratory: Reports cough that is pain with cough. Historical: - Allergies: 09:57 No Known Allergies; ll1 - PMHx: 09:57 Atrial fibrillation; Prediabetic; Hypertensive disorder; Hypercholesterolemia; ll1 - PSHx: 09:57 "prostate surgery"; Bypass-Decebmer 2020; CABG; ll1 - Immunization history:: Client reports receiving the 2nd dose of the Covid vaccine. - Social history:: Smoking status: Patient denies any tobacco usage or history of. Assessment: 10:17 General: Appears in no apparent distress. comfortable, Behavior is calm, cooperative, kr3 appropriate for age. Neuro: Level of Consciousness is awake, alert, obeys commands, Oriented to person, place, time, situation. Cardiovascular: Patient's skin is warm and dry. Respiratory: Airway is patent Respiratory effort is even, unlabored, Respiratory pattern is regular, symmetrical. GI: Abdomen is flat, non-distended. : No signs and/or symptoms were reported regarding the genitourinary system. EENT: Reports nasal congestion. Derm: No signs and/or symptoms reported regarding the dermatologic system. Musculoskeletal: No signs and/or symptoms reported regarding the musculoskeletal system. 11:15 Reassessment: Patient appears in no apparent distress at this time. Patient and/or kr3 family updated on plan of care and expected duration. Pain level reassessed. Patient is alert, oriented x 3, equal unlabored respirations, skin warm/dry/pink. 12:15 Reassessment: Patient appears in no apparent distress at this time. Patient and/or kr3 family updated on plan of care and expected duration. Pain level reassessed. Patient is alert, oriented x 3, equal unlabored respirations, skin warm/dry/pink. 13:03 Reassessment: Patient appears in no apparent distress at this time. Patient is alert, kr3 oriented x 3, equal unlabored respirations, skin warm/dry/pink. Vital Signs: 09:55 BP 109 / 57; Pulse 78; Resp 20; Temp 97.5; Pulse Ox 100% on R/A; Weight 83.91 kg; ll1 Height 6 ft. 0 in. (182.88 cm); Pain 5/10; 11:05 BP 113 / 67; Pulse 68; Resp 18; Pulse Ox 100% on R/A; kr3 12:01 BP 125 / 66; Pulse 64; Resp 17; Pulse Ox 100% on R/A; kr3 13:03 BP 102 / 56; Pulse 69; Resp 17; Pulse Ox 100% on R/A; kr3 09:55 Body Mass Index 25.09 (83.91 kg, 182.88 cm) ll1 ED Course: 09:49 Patient arrived in ED. mr 09:49 Lizett Rapp MD is Private Physician. mr 09:50 Neela Rodarte FNP-C is PHCP. kb 09:50 Tiffanie Barksdale MD is Attending Physician. kb 09:57 Triage completed. ll1 09:58 Arm band placed on Patient placed in an exam room, on a stretcher. ll1 10:17 Linda Walker, RN is Primary Nurse. kr3 12:01 Chest Pa And Lat (2 Views) XRAY In Process Unspecified. EDMS Administered Medications: 11:27 Drug: Xopenex (levalbuterol) 1.25 mg Route: Inhalation; kr3 13:07 Follow up: Response: No adverse reaction kr3 11:27 Drug: AtroVENT (ipratropium) Aerosol 0.5 mg Route: Inhalation; kr3 13:06 Follow up: Response: No adverse reaction kr3 12:52 Drug: SOLU-Medrol (methylPREDNISolone sodium succinate) 125 mg Route: IM; Site: left kr3 deltoid; 13:06 Follow up: Response: No adverse reaction kr3 Outcome: 12:39 Discharge ordered by MD. kb 13:07 Patient left the ED. kr3 Signatures: Dispatcher [employer] EDMS Neela Rodarte, ASSISTANT FIELD HOCKEY COACH-C ASSISTANT FIELD HOCKEY COACH-Cktio Hodgson Sasha mr Julieta Plaza, RN RN ll1 Linda Walker, RN RN kr3 Corrections: (The following items were deleted from the chart) 10:00 09:55 83.91 kg; Height 6 ft. 0 in.; BMI: 25.0; Pain 5/10; ll1 ll1
--- NOTE | 2022-11-12 12:40 | EDPHYS ---
Physician Documentation [facility] Name: Luis Meza Age: 67 yrs Sex: Male : 1955 Arrival Date: 11/12/2022 Time: 09:49 Bed 13 Private MD: Lizett Rapp ED Physician Tiffanie Barksdale HPI: 11/12 11:02 This 67 yrs old Male presents to ER via Ambulatory with complaints of Cough, Congestion.kb 11:16 The patient or guardian reports cough, that is intermittent, described as moderate, flu kb symptoms, low-grade fever, myalgias. Onset: The symptoms/episode began/occurred 2 week(s) ago. Severity of symptoms: At their worst the symptoms were moderate, in the emergency department the symptoms are unchanged. Modifying factors: The symptoms are alleviated by nothing, the symptoms are aggravated by nothing. Associated signs and symptoms: Pertinent positives: chest pain, with cough, fever, rhinorrhea, sore throat. The patient has not experienced similar symptoms in the past. The patient has been recently seen by a physician:. Pt reports he was diagnosed with the flu 5 days ago after having symptoms since October 29. States he is on his last day of Tamiflu but continues to have cough, congestion, throat and chest pain with cough only. . Historical: - Allergies: 09:57 No Known Allergies; ll1 - PMHx: 09:57 Atrial fibrillation; Prediabetic; Hypertensive disorder; Hypercholesterolemia; ll1 - PSHx: 09:57 "prostate surgery"; Bypass-Decebmer 2020; CABG; ll1 - Immunization history:: Client reports receiving the 2nd dose of the Covid vaccine. - Social history:: Smoking status: Patient denies any tobacco usage or history of. ROS: 11:00 Abdomen/GI: Negative for abdominal pain, nausea, vomiting, diarrhea, and constipation. kb 11:00 Constitutional: Positive for body aches, chills, fatigue, fever, malaise. 11:00 ENT: Positive for rhinorrhea, sinus congestion, fullness to ears. 11:00 Respiratory: Positive for cough, Negative for dyspnea on exertion, hemoptysis, orthopnea, pleurisy, shortness of breath. 11:00 All other systems are negative. Exam: 11:01 Constitutional: This is a well developed, well nourished patient who is awake, alert, kb and in no acute distress. Head/Face: Normocephalic, atraumatic. ENT: Moist Mucous membranes Cardiovascular: Regular rate and rhythm with a normal S1 and S2. No gallops, murmurs, or rubs. No pulse deficits. Abdomen/GI: Soft, non-tender. No distention Skin: Warm, dry with normal turgor. Normal color. MS/ Extremity: Pulses equal, no cyanosis. Neurovascular intact. Full, normal range of motion. Neuro: Awake and alert, GCS 15, oriented to person, place, time, and situation. Moves all extremities. Normal gait. Psych: Awake, alert, with orientation to person, place and time. Behavior, mood, and affect are within normal limits. 11:01 ECG was reviewed by the Attending Physician. 11:01 Respiratory: the patient does not display signs of respiratory distress, Respirations: normal, Breath sounds: wheezing: inspiratory expiratory that is mild, is scattered. 11:02 ENT: TM's: fluid levels, on the right. kb Vital Signs: 09:55 BP 109 / 57; Pulse 78; Resp 20; Temp 97.5; Pulse Ox 100% on R/A; Weight 83.91 kg; ll1 Height 6 ft. 0 in. (182.88 cm); Pain 5/10; 11:05 BP 113 / 67; Pulse 68; Resp 18; Pulse Ox 100% on R/A; kr3 12:01 BP 125 / 66; Pulse 64; Resp 17; Pulse Ox 100% on R/A; kr3 13:03 BP 102 / 56; Pulse 69; Resp 17; Pulse Ox 100% on R/A; kr3 09:55 Body Mass Index 25.09 (83.91 kg, 182.88 cm) ll1 MDM: 09:50 Patient medically screened. kb 11:02 Differential Diagnosis: Bronchitis Influenza Upper Respiratory Infection Sinusitis kb Pneumonia. Data reviewed: vital signs, nurses notes. 13:07 Consideration of Admission/Observation Escalation of care including kb admission/observation considered. I considered the following discharge prescriptions or medication management in the emergency department Antibiotics: At this time antibiotics are not recommended, pt requested shot of steroids prior to discharge because he was given that treatment for same symptoms and it helped her. . Test considered but Not performed: Labs: cbc, cmp and lactate considered, but pt has viral symptoms, normal vital signs and normal chest x-ray. Counseling: I had a detailed discussion with the patient and/or guardian regarding: the historical points, exam findings, and any diagnostic results supporting the discharge/admit diagnosis, radiology results, the need for outpatient follow up, a family practitioner, to return to the emergency department if symptoms worsen or persist or if there are any questions or concerns that arise at home. 11/12 09:56 Order name: Chest Pa And Lat (2 Views) XRAY; Complete Time: 12:23 kb 11/12 09:56 Order name: EKG; Complete Time: 09:57 kb 11/12 09:56 Order name: EKG - Nurse/Tech; Complete Time: 10:18 kb EC:01 Rate is 76 beats/min. Rhythm is regular. QRS [place] is Normal. [place] interval is normal at kb 148 msec. QRS interval is normal at 76 msec. QT interval is normal at 78 msec. Administered Medications: 11:27 Drug: Xopenex (levalbuterol) 1.25 mg Route: Inhalation; kr3 13:07 Follow up: Response: No adverse reaction kr3 11:27 Drug: AtroVENT (ipratropium) Aerosol 0.5 mg Route: Inhalation; kr3 13:06 Follow up: Response: No adverse reaction kr3 12:52 Drug: SOLU-Medrol (methylPREDNISolone sodium succinate) 125 mg Route: IM; Site: left kr3 deltoid; 13:06 Follow up: Response: No adverse reaction kr3 Disposition Summary: 11/12/22 12:39 Discharge Ordered Location: Home kb Condition: Stable kb Diagnosis - Influenza due to identified novel influenza A virus kb Followup: kb - With: Emergency Department - When: As needed - Reason: Worsening of condition Followup: kb - With: Private Physician - When: 2 - 3 days - Reason: Recheck today's complaints, Continuance of care, Re-evaluation by your physician Discharge Instructions: - Discharge Summary Sheet kb - Influenza, Adult, [id number] kb Forms: - Medication Reconciliation Form kb - Thank You Letter kb - Antibiotic Education kb - Prescription Opioid Use kb Signatures: Dispatcher [employer] EDNeela Andrade, DCC NAYAN-Julieta Quiroga RN RN ll1 Linda Walker RN RN kr3 Corrections: (The following items were deleted from the chart) 11: 11:00 ENT: Positive for rhinorrhea, sinus congestion, kb kb 11:02 11:01 Constitutional: This is a well developed, well nourished patient who is awake, kb alert, and in no acute distress. Head/Face: Normocephalic, atraumatic. ENT: Moist Mucous membranes Cardiovascular: Regular rate and rhythm with a normal S1 and S2. No gallops, murmurs, or rubs. No pulse deficits. Abdomen/GI: Soft, non-tender. No distention Skin: Warm, dry with normal turgor. Normal color. MS/ Extremity: Pulses equal, no cyanosis. Neurovascular intact. Full, normal range of motion. Neuro: Awake and alert, GCS 15, oriented to person, place, time, and situation. Moves all extremities. Normal gait. Psych: Awake, alert, with orientation to person, place and time. Behavior, mood, and affect are within normal limits. kb
[2022-11-12] MEDS ORDERED: METHYLPREDNISOLONE 125 MG INJ ONE (12:53)
[2022-11-12 13:13] VITALS: TEMP 97.5; O2SAT 100
[2022-11-12 13:17] VITALS: BP 102/56
--- NOTE | 2022-11-13 14:56 | EKG ---
Test Date: 2022-11-12 Test Time: 10:09:05 First Cook: ZENA MEASUREMENT RESULTS: Intervals: Rate: 76 TN: 148 QRSD: 78 QT: 398 QTc: 447 [place]: P: 69 TN: 148 QRS: 53 T: 49 INTERPRETIVE STATEMENTS: Normal sinus rhythm Nonspecific T wave abnormality Abnormal ECG Compared to ECG 10/31/2021 11:12:22 Possible ischemia no longer present T-wave abnormality still present Electronically Signed On 11-13-22 14:54:47 ACADEMIC AFFAIRS ASSISTANT by Bobby Mason
== END 2022-11-12 13:07 | disposition home or self-care (01) ==
LOC: ER 09:46
DX: J10.1 Influenza due to other identified influenza virus with other respiratory manifestations (principal); I10 Essential (primary) hypertension; Z95.1 Presence of aortocoronary bypass graft
CPT/HCPCS: 93005; 71046; 96372; 99284; J7614; J7644; J2930

== ENCOUNTER → 2023-12-26 | Emergency (ER) | payer OTHER ==
[2023-12-26 10:21] LABS: Absolute Lymphocytes (CBC) 1.7 K/uL (0.7-4.9); Hematocrit 42.1 % (39.6-49.0); Lymphocytes % 16.2 % (15.3-44.8); MCV 86.4 fL (80-100); MPV 8.3 fL (7.6-11.3); Platelets 196 thou/uL (152-406); RBC Red Blood Cell Count 4.87 M/uL (4.33-5.43)
[2023-12-26 10:24] LABS: Protime INR 1.04
--- NOTE | 2023-12-26 10:35 | RAD REPORT ---
EXAM DESCRIPTION: CT - Head Brain Wo Cont - 12/26/2023 10:15 am CLINICAL HISTORY: left arm tingling Headache, drowsiness, CVA COMPARISON: HEAD BRAIN W O CONTRAST dated 04/14/2011 TECHNIQUE: All CT scans are performed using dose optimization technique as appropriate and may inclu de automated exposure control or mA/KV adjustment according to patient size. FINDINGS: No intracranial hemorrhage, hydrocephalus or extra-axial fluid collection.No areas of brai n edema or evidence of midline shift. The paranasal sinuses and mastoids are clear. The calvarium is intact. IMPRESSION: No acute intracranial abnormality.
--- NOTE | 2023-12-26 10:35 | RAD REPORT ---
EXAM DESCRIPTION: RAD - Chest Single View - 12/26/2023 10:19 am CLINICAL HISTORY: left arm tingling Chest pain. COMPARISON: Chest Pa And Lat (2 Views) dated 11/12/2022; Chest Single View dated 09/23/2021; CHEST SI NGLE VIEW dated 04/15/2011 FINDINGS: Portable technique limits examination quality. The lungs are grossly clear. The heart is normal in size. No displaced fractures.Sternotomy wires. IMPRESSION: No acute intrathoracic process suspected.
[2023-12-26 10:59] LABS: Potassium 4.4 mEq/L (3.5-5.1); Troponin High Sensitivity 7.7 pg/mL (<58.9)
--- NOTE | 2023-12-26 12:44 | ER ---
Nurse's Notes [facility] Name: Luis Meza Age: 68 yrs Sex: Male : 1955 Arrival Date: 12/26/2023 Time: 09:43 Bed 18 Private MD: Diagnosis: Paresthesia of skin Presentation: 12/26 09:51 Chief complaint: Left sided chest discomfort and left thumb numbness x 3 days, left hb shoulder pain since this morning. VAN NEGATIVE. Coronavirus screen: At this time, the client does not indicate any symptoms associated with coronavirus-19. Ebola Screen: No symptoms or risks identified at this time. Initial Sepsis Screen: Does the patient meet any 2 criteria? No. Patient's initial sepsis screen is negative. Does the patient have a suspected source of infection? No. Patient's initial sepsis screen is negative. Risk Assessment: Do you want to hurt yourself or someone else? Patient reports no desire to harm self or others. Onset of symptoms was December 23, 2023. 09:51 Method Of Arrival: Ambulatory hb 09:51 Acuity: JORDEN 3 hb Triage Assessment: 10:15 Headache History: Denies prior headaches. General: Appears in no apparent distress. hb Behavior is calm, cooperative. Pain: Pain currently is 2 out of 10 on a pain scale. Neuro: GCS 15. Historical: - PMHx: 09:55 Atrial fibrillation; Hypercholesterolemia; Hypertensive disorder; Prediabetic; mb9 - PSHx: 09:55 CABG; Bypass-Decebmer 6; mb9 - Immunization history:: Adult Immunizations up to date. - Social history:: Smoking status: Patient denies any tobacco usage or history of. - Family history:: not pertinent. - Hospitalizations: : No recent hospitalization is reported. Screenin:56 [facility] ED Fall Risk Assessment (Adult) History of falling in the last 3 months, mb9 including since admission No falls in past 3 months (0 pts) Confusion or Disorientation No (0 pts) Intoxicated or Sedated No (0 pts) Impaired Gait No (0 pts) Mobility Assist Device Used No (0 pt) Altered Elimination No (0 pt) Score/Fall Risk Level 0 - 2 = Low Risk Oriented to surroundings, Maintained a safe environment, Educated pt \T\ family on fall prevention, incl call for assistance when getting out of bed. Abuse screen: Denies threats or abuse. Nutritional screening: No deficits noted. Tuberculosis screening: No symptoms or risk factors identified. Assessment: 10:13 General: Appears in no apparent distress. Behavior is calm, cooperative. Pain: mb9 Complains of pain in left hand and left bicep Quality of pain is described as tingling, throbbing, Is intermittent. Neuro: [place] Agitation-Sedation Scale (RASS): 0 - Alert and Calm Level of Consciousness is awake, alert, obeys commands, Oriented to person, place, time, situation, Appropriate for age. Cardiovascular: Patient's skin is warm and dry. Cardiovascular: Reports chest pain. Respiratory: Airway is patent Respiratory effort is even, unlabored, Respiratory pattern is regular, symmetrical. Respiratory: Reports shortness of breath. GI: No signs and/or symptoms were reported involving the gastrointestinal system. : No signs and/or symptoms were reported regarding the genitourinary system. EENT: No signs and/or symptoms were reported regarding the EENT system. Derm: Skin is pink, warm \T\ dry. Musculoskeletal: Range of motion: intact in all extremities. 11:18 Reassessment: No changes from previously documented assessment. Patient and/or family mb9 updated on plan of care and expected duration. Pain level reassessed. Patient is alert, oriented x 3, equal unlabored respirations, skin warm/dry/pink. 12:01 Reassessment: Patient and/or family updated on plan of care and expected duration. Pain mb9 level reassessed. Patient is alert, oriented x 3, equal unlabored respirations, skin warm/dry/pink. Patient states feeling better. Patient states symptoms have improved. 12:59 Reassessment: Patient and/or family updated on plan of care and expected duration. Pain mb9 level reassessed. Patient is alert, oriented x 3, equal unlabored respirations, skin warm/dry/pink. Patient states feeling better. Patient states symptoms have improved. Vital Signs: 09:51 BP 153 / 53; Pulse 63; Resp 16; Temp 97.3(TE); Pulse Ox 100% on R/A; Weight 90.72 kg; hb Height 6 ft. 0 in. ; Pain 2/10; 11:18 BP 123 / 56; Pulse 54; Resp 18; Pulse Ox 100% on R/A; mb9 12:01 BP 130 / 76; Pulse 60; Resp 18; Pulse Ox 100% on R/A; mb9 12:59 BP 128 / 74; Pulse 66; Resp 16; Pulse Ox 100% on R/A; mb9 09:51 Body Mass Index 27.12 (90.72 kg, 182.88 cm) hb 09:51 Pain Scale: Adult hb ED Course: 09:46 Patient arrived in ED. rg4 09:47 Paramjit Foster MD is Attending Physician. rn 09:52 Sasha Newton, RN is Primary Nurse. mb9 09:55 Arm band placed on. mb9 09:55 Placed in gown. Bed in low position. Call light in reach. Side rails up X 1. Client mb9 placed on continuous cardiac and pulse oximetry monitoring. NIBP monitoring applied. house calls nurse practitioner on. Door closed. Noise minimized. Warm blanket given. 10:13 EKG done, by ED staff, reviewed by Paramjit Foster MD. Inserted saline lock: 20 gauge in mb9 right forearm, using aseptic technique. 10:15 Triage completed. hb 10:16 CT Head Brain wo Cont In Process Unspecified. EDMS 10:18 XRAY Chest (1 view) In Process Unspecified. EDMS 13:00 No provider procedures requiring assistance completed. IV discontinued, intact, mb9 bleeding controlled, No redness/swelling at site. Pressure dressing applied. Administered Medications: No medications were administered Medication: 09:55 VIS not applicable for this client. mb9 Outcome: 12:43 Discharge ordered by . rn 12:59 Discharged to home ambulatory, mb9 12:59 Condition: stable 12:59 Discharge instructions given to patient, Instructed on discharge instructions, follow up and referral plans. Demonstrated understanding of instructions, follow-up care, 13:00 Patient left the ED. mb9 Signatures: Dispatcher [employer] EDMS Paramjit Foster MD MD rn Baxter, Heather, RN RN hb Garcia, Rubi rg4 Sasha Newton RN RN mb9
--- NOTE | 2023-12-26 12:44 | EDPHYS ---
Physician Documentation [facility] Name: Luis Meza Age: 68 yrs Sex: Male : 1955 Arrival Date: 12/26/2023 Time: 09:43 Bed 18 Private MD: ED Physician Paramjit Foster HPI: 12/26 10:00 This 68 yrs old Male presents to ER via Unassigned with complaints of Numbness Of Arm. rn 10:00 The patient or guardian complains of pain, Numbness and tingling. The complaints affect rn the left bicep and left hand. Onset: The symptoms/episode began/occurred 3 week(s) ago. Treatment prior to arrival includes: no previous treatment. Modifying factors: The symptoms are alleviated by nothing. the symptoms are aggravated by nothing. Severity of symptoms: At their worst the symptoms were mild, in the emergency department the symptoms are unchanged. The patient has not experienced similar symptoms in the past. Patient reports left upper arm and hand tingling that is intermittent for the last 3 weeks. Patient reports history of CABG and wanted to make sure that this was not heart related. Has not experienced any chest pain or shortness of breath. This does not feel like previous heart problems for him. Patient states after 3 weeks is not getting better so decided to come in for evaluation. His CABG was 2 years ago. No recent trauma.. Historical: - PMHx: 09:55 Atrial fibrillation; Hypercholesterolemia; Hypertensive disorder; Prediabetic; mb9 - PSHx: 09:55 CABG; Bypass-Decebmer 6; mb9 - Immunization history:: Adult Immunizations up to date. - Social history:: Smoking status: Patient denies any tobacco usage or history of. - Family history:: not pertinent. - Hospitalizations: : No recent hospitalization is reported. ROS: 11:04 Constitutional: Negative for fever, chills, and weight loss, Eyes: Negative for injury, rn pain, redness, and discharge, Cardiovascular: Negative for chest pain, palpitations, and edema, Respiratory: Negative for shortness of breath, cough, wheezing, and pleuritic chest pain, Abdomen/GI: Negative for abdominal pain, nausea, vomiting, diarrhea, and constipation, Back: Negative for injury and pain, MS/Extremity: Negative for injury and deformity, Skin: Negative for injury, rash, and discoloration, Neuro: Positive for intermittent tingling to left arm and hand Exam: 11:04 Constitutional: This is a well developed, well nourished patient who is awake, alert, rn and in no acute distress. Head/Face: Normocephalic, atraumatic. Neck: No midline cervical tenderness or decreased range of motion noted Chest/axilla: Normal chest wall appearance and motion. Nontender with no deformity. No lesions are appreciated. Cardiovascular: Regular rate and rhythm. No pulse deficits. Respiratory: No increased work of breathing, no retractions or nasal flaring. Abdomen/GI: Soft, non-tender MS/ Extremity: Pulses equal, no cyanosis. Neurovascular intact. Full, normal range of motion. Equal circumference. Neuro: Awake and alert, GCS 15, oriented to person, place, time, and situation. Cranial nerves II-XII grossly intact. Motor strength 5/5 in all extremities. Sensory grossly intact. Cerebellar exam normal. Normal gait. 12:41 ECG was reviewed by the Attending Physician. rn Vital Signs: 09:51 BP 153 / 53; Pulse 63; Resp 16; Temp 97.3(TE); Pulse Ox 100% on R/A; Weight 90.72 kg; hb Height 6 ft. 0 in. ; Pain 2/10; 11:18 BP 123 / 56; Pulse 54; Resp 18; Pulse Ox 100% on R/A; mb9 12:01 BP 130 / 76; Pulse 60; Resp 18; Pulse Ox 100% on R/A; mb9 12:59 BP 128 / 74; Pulse 66; Resp 16; Pulse Ox 100% on R/A; mb9 09:51 Body Mass Index 27.12 (90.72 kg, 182.88 cm) hb 09:51 Pain Scale: Adult hb MDM: 09:47 Patient medically screened. rn 12:41 Differential diagnosis: Neuropathy, radiculopathy, referred cardiac pain. Data rn reviewed: vital signs, nurses notes, lab test result(s), EKG, radiologic studies, CT scan, plain films, and as a result, I will discharge patient. Care significantly affected by the following chronic conditions: Hypertension, CAD. Counseling: I had a detailed discussion with the patient and/or guardian regarding the historical points, exam findings, and any diagnostic results supporting the discharge/admit diagnosis, lab results, radiology results, the need for outpatient follow up, to return to the emergency department if symptoms worsen or persist or if there are any questions or concerns that arise at home. Special discussion: I discussed with the patient/guardian in detail that at this point there is no indication for admission to the hospital. It is understood, however, that if the symptoms persist or worsen the patient needs to return immediately for re-evaluation. Based on the history and exam findings, there is no indication for further emergent testing or inpatient evaluation. I discussed with the patient/guardian the need to see the desktop support consultant for further evaluation of the symptoms. I discussed with the patient/guardian the need to see the primary care provider for further evaluation of the symptoms. ED course: No acute findings and workup today. Troponin negative x 2. No ischemia on EKG.. 12:41 ED course: Patient reports is going to schedule follow-up appointment with Dr. Sawyer, internet cafe manager. Return precautions given and understood. Discharge. 12/26 10:00 Order name: Basic Metabolic Panel; Complete Time: 12/26 10:00 Order name: CBC with Diff; Complete Time: 12/26 10:00 Order name: NT PRO-BNP; Complete Time: 12/26 10:00 Order name: PT-INR; Complete Time: 12/26 10:00 Order name: Troponin HS; Complete Time: 12/26 11:26 Order name: Troponin High Sensitivity; Complete Time: 12:41 12/26 10:00 Order name: XRAY Chest (1 view); Complete Time: 12/26 10:00 Order name: CT Head Brain wo Cont; Complete Time: 12/26 10:00 Order name: EKG; Complete Time: 12/26 10:00 Order name: Cardiac monitoring; Complete Time: 12/26 10:00 Order name: EKG - Nurse/Tech; Complete Time: 12/26 10:00 Order name: IV Saline Lock; Complete Time: 12/26 10:00 Order name: Labs collected and sent; Complete Time: 12/26 10:00 Order name: O2 Per Protocol; Complete Time: 12/26 10:00 Order name: O2 Sat Monitoring; Complete Time: 10:00 rn 12/26 10:25 Order name: Labs - recollect needed: light green recollect; Complete Time: 10:26 hb EC:41 Rate is 55 beats/min. Rhythm is regular. QRS [place] is Normal. MA interval is normal. QRS rn interval is normal. QT interval is normal. No Q waves. T waves are Normal. No ST changes noted. Clinical impression: Sinus bradycardia. Interpreted by me. Reviewed by me. Administered Medications: No medications were administered Disposition Summary: 12/26/23 12:43 Discharge Ordered Notes: Location: Home rn Problem: an ongoing problem rn Symptoms: have improved rn Condition: Stable rn Diagnosis - Paresthesia of skin rn Followup: rn - With: Private Physician - When: As needed - Reason: Recheck today's complaints, Re-evaluation by your physician Discharge Instructions: - Discharge Summary Sheet rn - Paresthesia rn Forms: - Medication Reconciliation Form rn - Thank You Letter rn - Antibiotic furniture technician - Prescription Opioid Use rn - Patient Portal Instructions rn - Leadership Thank You Letter rn Signatures: Dispatcher [employer] Paramjit Narayanan MD MD rn Baxter, Heather RN RN Sasha Keller RN RN mb9
[2023-12-26 13:29] VITALS: BP 128/74; TEMP 97.3; O2SAT 100
--- NOTE | 2023-12-29 14:40 | EKG ---
Test Date: 2023-12-26 Test Time: 10:04:36 Merchandise Processor: IRIS MEASUREMENT RESULTS: Intervals: Rate: 55 DC: 150 QRSD: 70 QT: 416 QTc: 397 [place]: P: 32 DC: 150 QRS: 18 T: 54 INTERPRETIVE STATEMENTS: Sinus bradycardia Otherwise normal ECG Compared to ECG 11/12/2022 10:09:05 Sinus rhythm no longer present T-wave abnormality no longer present Electronically Signed On 12-29-23 14:30:59 SAFETY COMPLIANCE SPECIALIST by Bobby Mason
== END ==
LOC: ER 09:43
DX: R20.2 Paresthesia of skin (principal); I10 Essential (primary) hypertension; I48.91 Unspecified atrial fibrillation; Z95.1 Presence of aortocoronary bypass graft
CPT/HCPCS: 36415; 70450; 71045; 80048; 83880; 84484; 85025; 85610; 93005